=== PATIENT | female | born 1955 | race Hispanic/Latino ===

== ENCOUNTER 2022-04-19 15:54 | Inpatient (IN) | payer MEDICAID, SELFPAY ==
[2022-04-19 16:56] LABS: Hemoglobin 12.4 g/dL (12.0-16.0); Mean Corpuscular HGB CONC 32.6 g/dL (32.0-36.0); Mean Corpuscular Hemoglobin 31.2 pg (27.0-31.0); Mean Corpuscular Volume 95.5 fl (78.0-98.0); Mean Platelet Volume 8.9 fL (7.4-10.4); Platelet Count 107 10x3/uL (130-400); RBC Distribution Width 13.7 % (11.5-14.5); Red Blood Cell (RBC) Count 3.97 mill/uL (4.20-5.40); White Blood Cell (WBC) Count 8.1 10x3/uL (4.8-10.8)
[2022-04-19] MEDS ORDERED: Cefepime 2 GM VIAL ONE (17:13)
[2022-04-19] MEDS ORDERED: Vancomycin 1.5 GRAM/300 ML BAG 1.5 GM in Premix Bag 1 BAG IVPB SCH (17:15)
[2022-04-19 17:19] LABS: Band 47 % (5-11); Lymphocytes 1 % (21-51); MDiff Complete? YES; Metamyelocyte 3 % (0-0); Neutrophil 49 % (42-75); Platelet Morphology Comment Appears Decreased; RBC Morphology Normal; Reflex for Review?? YES; Vacuoles SLIGHT
[2022-04-19] MEDS ORDERED: Fentanyl 100 MCG/2 ML VIAL ONE (17:25)
[2022-04-19] MEDS ORDERED: Ondansetron PF 4 MG/2 ML Vial ONE ×2 (17:25→20:50)
[2022-04-19 17:33] LABS: CKMB 7.1 ng/mL (0-6.6)
[2022-04-19 17:45] LABS: Bilirubin Negative (Negative); Blood, Urine Negative (Negative); Glucose, Urine (Dipstick) Negative (Negative); Ketone, Urine 15 mg/dL (Negative); Leukocyte Negative (Negative); Nitrite Negative (Negative); Protein, Urine (Dipstick) Trace mg/dL (Neg-Trace); Urobilinogen 0.2 mg/dL (Less than 2)
[2022-04-19 17:46] LABS: PTT 27.3 sec (22.9-36.1); Prothrombin Time 13.4 sec (12.0-14.7)
[2022-04-19] MEDS ORDERED: Aspirin Chewable 81 MG TAB ONE (17:46)
[2022-04-19 17:49] LABS: Clarity Cloudy (Clear)
[2022-04-19 17:50] LABS: Bacteria/HPF 1+ HPF (None Seen); RBC/HPF None Seen HPF (0-3); WBC/HPF None Seen HPF (0-3)
[2022-04-19 18:01] LABS: Anion Gap 16 mmol/L (10-20); BUN (Urea Nitrogen) 38 mg/dL (9.8-20.1); Calc. Creatinine Clearance 0 mL/min (70-130); Carbon Dioxide 19 mmol/L (23-31); Chloride 107 mmol/L (98-107); Potassium 5.1 mmol/L (3.5-5.1); Sodium 137 mmol/L (136-145)
[2022-04-19 18:02] LABS: ALT (SGPT) 23 U/L (8-55); AST (SGOT) 25 U/L (5-34); Albumin 2.8 g/dL (3.4-4.8); Alkaline Phosphatase 88 U/L (40-110); Bilirubin, Total 0.8 mg/dL (0.2-1.2); Calcium 8.2 mg/dL (7.8-10.44); Estimated GFR 27; Glucose 63 mg/dL (80-115); Lipase 53 U/L (8-78); Protein, Total 5.8 g/dL (5.8-8.1)
[2022-04-19 18:29] LABS: SARS-CoV-2 NAA Rapid Test Not Detected (NotDetected)
[2022-04-19] MEDS ORDERED: Acetaminophen 500 MG TAB ONE (19:01)
[2022-04-19] MEDS ORDERED: Norepinephrine 4 MG/4 ML VIAL ONE (19:44)
[2022-04-19] MEDS ORDERED: HYDROcodone/Acetaminophen 5/325 mg Tablet PO PRN (19:51)
[2022-04-19] MEDS ORDERED: Ondansetron PF 4 MG/2 ML Vial IVP PRN (19:51)
[2022-04-19] MEDS ORDERED: HYDROmorphone 2 MG TAB PO PRN (19:58)
[2022-04-19] MEDS ORDERED: Dextrose 50% Abboject 50 ML SYRINGE SLOW IVP PRN (20:08)
[2022-04-19] MEDS ORDERED: Dextrose 5% in Water 1,000 ML IV PRN (20:08)
[2022-04-19] MEDS ORDERED: Lactated Ringer's 1,000 ML IV SCH (20:30)
[2022-04-19 21:33] LABS: Actual Bicarbonate (HCO3v) 18 mEq/L (22-28); Analyzer IN Cardio ER; Base Excess -7.7 mEq/L (-2.0 to +3.0); Calcium, Ionized (venous) 0.98 mmol/L (1.16-1.32); Chloride (VBG) 109 mmol/L (98-106); Hemoglobin (Hb) 11.8 g/dL (11.7-16.1); Potassium (VBG) 4.74 mmol/L (3.70-5.30); Sodium 133.1 mmol/L (133-146); pH (venous) 7.31 (7.32-7.43)
[2022-04-19] MEDS ORDERED: NOREPINEPHRINE 8 MG/250 ML-D5W 250 ML IVPB SCH (21:45)
[2022-04-19] MEDS ORDERED: Norepinephrine 8 MG in Dextrose 5% in Water 242 ML IVPB SCH ×2 (22:00)
[2022-04-19] MEDS ORDERED: Meropenem 1 GM in Sodium Chloride 0.9% 100 ML IVPB SCH (22:00)
[2022-04-19 22:03] LABS: Lactic Acid 3.1 mmol/L (0.5-2.2)
[2022-04-19 22:15] LABS: Troponin I 3.409 ng/mL (< 0.028)
[2022-04-19] MEDS: Lactated Ringer's 1,000 ML IV SCH ×2 (22:30→23:30)
[2022-04-19] MEDS ORDERED: EPINEPHrine 4 MG in Dextrose 5% in Water 250 ML IV SCH (22:45)
[2022-04-19] MEDS ORDERED: Hydrocortisone Sod Succ/PF 500 mg/4 ml Vial SLOW IVP SCH (23:59)
[2022-04-20 00:33] LABS: Troponin I 4.226 ng/mL (< 0.028)
[2022-04-20] MEDS: Atorvastatin Calcium 40 MG TAB PO SCH ×2 (01:12→19:58)
[2022-04-20] MEDS: Clindamycin/D5W 900 MG in Premix Bag 1 BAG IVPB SCH ×4 (01:13→21:57)
[2022-04-20] MEDS ORDERED: Hydrocortisone Sod Succ/PF 100 mg/2 ml Vial IVP SCH (01:15)
[2022-04-20] MEDS: Acetaminophen 325 MG TAB PO PRN ×2 (01:45→10:48)
[2022-04-20 05:29] LABS: ALT (SGPT) 23 U/L (8-55); AST (SGOT) 29 U/L (5-34); Albumin 2.2 g/dL (3.4-4.8); Alkaline Phosphatase 74 U/L (40-110); Anion Gap 13 mmol/L (10-20); BUN (Urea Nitrogen) 42 mg/dL (9.8-20.1); Bilirubin, Direct 0.4 mg/dL (0.1-0.3); Bilirubin, Total 0.9 mg/dL (0.2-1.2); CRP (Inflammatory) 18.79 mg/dL (= or < 0.5); Calc. Creatinine Clearance 41 mL/min (70-130); Calcium 7.4 mg/dL (7.8-10.44); Carbon Dioxide 19 mmol/L (23-31); Cardiac Risk 2.4 (Less than 4.5); Chloride 108 mmol/L (98-107); Cholesterol 85 mg/dl (< 200 Desired); Estimated GFR 24; Glucose 116 mg/dL (80-115); HDL Cholesterol 35 mg/dL (>60 Neg Risk); LDL Cholesterol, Calculated 28 mg/dL; Protein, Total 4.6 g/dL (5.8-8.1); Sodium 135 mmol/L (136-145); Triglycerides 109 mg/dL (Less than 150)
[2022-04-20 05:46] LABS: Band 37 % (5-11); Hemoglobin 10.3 g/dL (12.0-16.0); Hypochromia SLIGHT = 6-15 cells (100X) (0-5/hpf); Lymphocytes 4 % (21-51); MDiff Complete? YES; Mean Platelet Volume 8.9 fL (7.4-10.4); Metamyelocyte 1 % (0-0); Monocytes 9 % (0-10); Neutrophil 49 % (42-75); Platelet Count 209 10x3/uL (130-400); Platelet Morphology Comment Appears Adequate; RBC Distribution Width 13.7 % (11.5-14.5); Red Blood Cell (RBC) Count 3.33 mill/uL (4.20-5.40); White Blood Cell (WBC) Count 19.4 10x3/uL (4.8-10.8)
[2022-04-20] MEDS ORDERED: Magnesium 2 GM/50 ML(in water) 2 GM in Premix Bag 1 BAG IVPB SCH ×2 (06:00→22:15)
[2022-04-20] MEDS: Hydrocortisone Sod Succ/PF 100 mg/2 ml Vial IVP SCH ×4 (06:12→23:02)
[2022-04-20] MEDS: Meropenem 500 MG in Sodium Chloride 0.9% 100 ML IVPB SCH ×2 (06:18→17:49)
[2022-04-20] MEDS: Lactated Ringer's 500 ML IV SCH ×2 (08:00→08:35)
[2022-04-20 08:21] LABS: Phosphorus 3.2 mg/dL (2.3-4.7)
[2022-04-20] MEDS: Lactated Ringer's 1,000 ML IV SCH ×2 (09:45)
[2022-04-20] MEDS: Pantoprazole 40 MG VIAL IVP SCH (09:53)
[2022-04-20] MEDS: Aspirin Chewable 81 MG TAB PO SCH (10:48)
[2022-04-20 11:11] LABS: Campy jejuni + coli by PCR Negative (Negative); STEC Shiga Toxin 1+2 Negative (Negative); Salmonella spp. by PCR Negative (Negative); Shigella spp + EIEC by PCR Negative (Negative)
[2022-04-20 12:22] LABS: Anion Gap 15 mmol/L (10-20); BUN (Urea Nitrogen) 39 mg/dL (9.8-20.1); Calc. Creatinine Clearance 45 mL/min (70-130); Calcium 7.2 mg/dL (7.8-10.44); Carbon Dioxide 17 mmol/L (23-31); Chloride 107 mmol/L (98-107); Estimated GFR 27; Glucose 208 mg/dL (80-115); Potassium 5.7 mmol/L (3.5-5.1); Sodium 133 mmol/L (136-145)
[2022-04-20] MEDS: Albumin 25% 25 GM/100 ML BOT IVPB SCH ×3 (12:32→23:02)
[2022-04-20] MEDS: NOREPINEPHRINE 8 MG/250 ML-D5W 250 ML IVPB SCH ×2 (13:18→22:00)
[2022-04-20] MEDS ORDERED: Morphine 2 MG/ML VIAL SLOW IVP PRN (14:21)
[2022-04-20] MEDS ORDERED: Sodium Chloride 0.9% 1,000 ML IV SCH (14:30)
[2022-04-20 14:44] LABS: Magnesium 1.6 mg/dL (1.6-2.6)
[2022-04-20] MEDS ORDERED: ALPRAZolam 0.25 MG TAB PO PRN (15:40)
[2022-04-20] MEDS ORDERED: VANCOMYCIN 1.25 GM/250 ML BAG 1.25 GM in Premix Bag 1 BAG IVPB SCH ×2 (17:30→20:00)
[2022-04-20] MEDS ORDERED: Vancomycin Dose by Levels Sliding Scale (Wt > 99) FS SCH (18:00)
[2022-04-20] MEDS ORDERED: Lorazepam 2 MG/ML VIAL SLOW IVP PRN (19:16)
[2022-04-20] MEDS ORDERED: Lorazepam 2 MG/ML VIAL SLOW IVP SCH (19:30)
[2022-04-20 19:46] LABS: Actual Bicarbonate (HCO3a) 18.3 mEq/L (22-28); Base Excess (BEa) -8.2 mEq/L (-2.0 to +3.0); CO2 Tension 41.8 mmHg (35.0-45.0); Calcium, Ionized (arterial) 1.04 mmol/L (1.12-1.30); Carboxyhemoglobin (COHb) 0.2 gm% (0.0-3.0); Hemoglobin (Hb) 9.8 g/dL (12.0-16.0); O2 Tension (PaO2), arterial 90.4 mmHg (> 80.0); Potassium - ABG Lab 5.36 mmol/L (3.70-5.30); pH, Arterial 7.26 (7.35-7.45)
[2022-04-20 19:48] LABS: Puncture Site LBA
[2022-04-20] MEDS: Heparin 5,000 UNITS/ML VIAL SC SCH (20:00)
[2022-04-20] MEDS ORDERED: Rocuronium Bromide 10 MG/ML (10ML VIAL) ONE (20:21)
[2022-04-20 20:55] LABS: Hemoglobin 8.8 g/dL (12.0-16.0); Mean Corpuscular HGB CONC 32.2 g/dL (32.0-36.0); Mean Corpuscular Hemoglobin 31.5 pg (27.0-31.0); Mean Corpuscular Volume 97.9 fl (78.0-98.0); Mean Platelet Volume 8.6 fL (7.4-10.4); Platelet Count 129 10x3/uL (130-400); RBC Distribution Width 13.6 % (11.5-14.5); Red Blood Cell (RBC) Count 2.78 mill/uL (4.20-5.40); White Blood Cell (WBC) Count 22.1 10x3/uL (4.8-10.8)
[2022-04-20] MEDS ORDERED: Sodium Bicarb 50 MEQ/50 ML VIAL IVP SCH (21:00)
[2022-04-20] MEDS ORDERED: Sodium Bicarb 50 MEQ/50 ML Abboject 8.4% SYRINGE IVP SCH (21:00)
[2022-04-20 21:10] LABS: Lactic Acid 1.3 mmol/L (0.5-2.2)
[2022-04-20 21:14] LABS: ALT (SGPT) 23 U/L (8-55); AST (SGOT) 27 U/L (5-34); Albumin 3.1 g/dL (3.4-4.8); Alkaline Phosphatase 71 U/L (40-110); Anion Gap 14 mmol/L (10-20); BUN (Urea Nitrogen) 37 mg/dL (9.8-20.1); Bilirubin, Total 0.9 mg/dL (0.2-1.2); Calc. Creatinine Clearance 48 mL/min (70-130); Calcium 7.2 mg/dL (7.8-10.44); Carbon Dioxide 16 mmol/L (23-31); Chloride 107 mmol/L (98-107); Estimated GFR 29; Globulin 2.2 g/dL (2.4-3.5); Glucose 183 mg/dL (80-115); Potassium 5.3 mmol/L (3.5-5.1); Protein, Total 5.3 g/dL (5.8-8.1); Sodium 132 mmol/L (136-145)
[2022-04-20 21:21] LABS: Actual Bicarbonate (HCO3a) 17.2 mEq/L (22-28); CO2 Tension 33.6 mmHg (35.0-45.0); Calcium, Ionized (arterial) 1.01 mmol/L (1.12-1.30); Carboxyhemoglobin (COHb) 0.1 gm% (0.0-3.0); Hemoglobin (Hb) 9.4 g/dL (12.0-16.0); O2 Tension (PaO2), arterial 174.2 mmHg (> 80.0); Potassium - ABG Lab 5.13 mmol/L (3.70-5.30); pH, Arterial 7.33 (7.35-7.45)
[2022-04-20 21:22] LABS: Band 32 % (5-11); Lymphocytes 1 % (21-51); MDiff Complete? YES; Metamyelocyte 4 % (0-0); Monocytes 1 % (0-10); Neutrophil 62 % (42-75); Platelet Clumps SLIGHT; Platelet Morphology Comment Appears Decreased; RBC Morphology Normal; Vacuoles SLIGHT
[2022-04-20 21:28] LABS: Magnesium 1.5 mg/dL (1.6-2.6)
[2022-04-20 21:33] LABS: Puncture Site RBA
[2022-04-20] MEDS ORDERED: DISCONTINUE PREVIOUS NARCOTIC PAIN MEDICATIONS AND BENZODIAZEPINES FS SCH (22:00)
[2022-04-20] MEDS ORDERED: Propofol BOLUS 1,000 MG/100 ML VIAL IV PRN (22:00)
[2022-04-20] MEDS ORDERED: Morphine 4 MG/ML VIAL SLOW IVP PRN (22:00)
[2022-04-20] MEDS ORDERED: Fentanyl BOLUS 250 ML IVPB PRN (22:00)
[2022-04-20] MEDS: Sodium Bicarbonate 150 MEQ in Sterile Water 1,000 ML IV SCH (22:03)
[2022-04-20] MEDS ORDERED: Magnesium Sulfate 2 GM in Sodium Chloride 0.9% 100 ML IVPB SCH (22:15)
[2022-04-20] MEDS: Fentanyl CADD 100 ML IV SCH (22:41)
[2022-04-21 05:05] LABS: Hemoglobin 8.3 g/dL (12.0-16.0); Mean Corpuscular HGB CONC 32.1 g/dL (32.0-36.0); Mean Corpuscular Hemoglobin 30.9 pg (27.0-31.0); Mean Corpuscular Volume 96.5 fl (78.0-98.0); Mean Platelet Volume 9.2 fL (7.4-10.4); Platelet Count 125 10x3/uL (130-400); RBC Distribution Width 13.6 % (11.5-14.5); Red Blood Cell (RBC) Count 2.67 mill/uL (4.20-5.40); White Blood Cell (WBC) Count 19.6 10x3/uL (4.8-10.8)
[2022-04-21 05:18] LABS: Anion Gap 14 mmol/L (10-20); BUN (Urea Nitrogen) 34 mg/dL (9.8-20.1); Calc. Creatinine Clearance 52 mL/min (70-130); Calcium 7.5 mg/dL (7.8-10.44); Carbon Dioxide 22 mmol/L (23-31); Chloride 105 mmol/L (98-107); Estimated GFR 30; Glucose 182 mg/dL (80-115); Magnesium 2.2 mg/dL (1.6-2.6); Potassium 4.1 mmol/L (3.5-5.1); Sodium 137 mmol/L (136-145)
[2022-04-21] MEDS: Meropenem 500 MG in Sodium Chloride 0.9% 100 ML IVPB SCH (05:27)
[2022-04-21] MEDS: Hydrocortisone Sod Succ/PF 100 mg/2 ml Vial IVP SCH ×4 (05:27→23:10)
[2022-04-21] MEDS: Clindamycin/D5W 900 MG in Premix Bag 1 BAG IVPB SCH (05:27)
[2022-04-21] MEDS: Albumin 25% 25 GM/100 ML BOT IVPB SCH (05:27)
[2022-04-21 06:01] LABS: Band 12 % (5-11); Lymphocytes 1 % (21-51); MDiff Complete? YES; Metamyelocyte 4 % (0-0); Monocytes 6 % (0-10); Neutrophil 77 % (42-75); Platelet Morphology Comment Appears Decreased; Polychromasia SLIGHT = 2-3 cells (100X) (0-2/hpf)
[2022-04-21] MEDS: Sodium Bicarbonate 150 MEQ in Sterile Water 1,000 ML IV SCH ×2 (07:22→14:40)
[2022-04-21] MEDS: Pantoprazole 40 MG VIAL IVP SCH (08:26)
[2022-04-21] MEDS: Propofol 1,000 MG/100 ML VIAL IV PRN ×2 (08:26→17:42)
[2022-04-21] MEDS: Heparin 5,000 UNITS/ML VIAL SC SCH ×2 (08:26→20:15)
[2022-04-21] MEDS: Aspirin Chewable 81 MG TAB PO SCH (08:26)
[2022-04-21] MEDS: Meropenem 1 GM in Sodium Chloride 0.9% 100 ML IVPB SCH ×2 (17:42→19:37)
[2022-04-21 18:17] LABS: Vancomycin, Random 19.9 ug/mL (See Comment)
[2022-04-21] MEDS ORDERED: Vancomycin HCl 750 MG in Sodium Chloride 0.9% 250 ML 250 ML IVPB SCH (19:15)
[2022-04-21] MEDS: Atorvastatin Calcium 40 MG TAB PO SCH (20:16)
[2022-04-22] MEDS: Sodium Bicarbonate 150 MEQ in Sterile Water 1,000 ML IV SCH ×2 (02:21→11:07)
[2022-04-22 04:40] LABS: Hemoglobin 7.8 g/dL (12.0-16.0); Mean Corpuscular HGB CONC 33.9 g/dL (32.0-36.0); Mean Corpuscular Volume 94.4 fl (78.0-98.0); Mean Platelet Volume 9.3 fL (7.4-10.4); Platelet Count 91 10x3/uL (130-400); RBC Distribution Width 13.7 % (11.5-14.5); Red Blood Cell (RBC) Count 2.45 mill/uL (4.20-5.40); White Blood Cell (WBC) Count 19.9 10x3/uL (4.8-10.8)
[2022-04-22 04:58] LABS: Anion Gap 16 mmol/L (10-20); BUN (Urea Nitrogen) 33 mg/dL (9.8-20.1); Calc. Creatinine Clearance 57 mL/min (70-130); Calcium 7.6 mg/dL (7.8-10.44); Carbon Dioxide 26 mmol/L (23-31); Chloride 100 mmol/L (98-107); Estimated GFR 35; Glucose 154 mg/dL (80-115); Magnesium 2.3 mg/dL (1.6-2.6); Potassium 2.7 mmol/L (3.5-5.1); Sodium 139 mmol/L (136-145)
[2022-04-22 05:05] LABS: Band 7 % (5-11); MDiff Complete? YES; Neutrophil 93 % (42-75); Platelet Morphology Comment Appears Decreased
[2022-04-22] MEDS: Hydrocortisone Sod Succ/PF 100 mg/2 ml Vial IVP SCH ×2 (05:11→11:08)
[2022-04-22] MEDS: Meropenem 1 GM in Sodium Chloride 0.9% 100 ML IVPB SCH (05:11)
[2022-04-22 07:31] LABS: Actual Bicarbonate (HCO3a) 27.6 mEq/L (22-28); CO2 Tension 28.6 mmHg (35.0-45.0); Calcium, Ionized (arterial) 0.97 mmol/L (1.12-1.30); Carboxyhemoglobin (COHb) 0.6 gm% (0.0-3.0); Hemoglobin (Hb) 8.6 g/dL (12.0-16.0); O2 Tension (PaO2), arterial 70.8 mmHg (> 80.0); Potassium - ABG Lab 2.81 mmol/L (3.70-5.30)
[2022-04-22 07:38] LABS: Puncture Site LRA
[2022-04-22] MEDS ORDERED: Rocuronium Bromide 10 MG/ML (10ML VIAL) ONE (09:14)
[2022-04-22] MEDS ORDERED: Electrolyte Replacement Protocol FS PRN (09:15)
[2022-04-22] MEDS ORDERED: Rocuronium Bromide 10 MG/ML (10ML VIAL) IVP SCH (09:45)
[2022-04-22] MEDS: Aspirin Chewable 81 MG TAB PO SCH (09:47)
[2022-04-22] MEDS: Pantoprazole 40 MG VIAL IVP SCH (09:48)
[2022-04-22] MEDS: Potassium Bicarbonate/Cit Ac 20 MEQ TAB PER TUBE SCH ×3 (09:48→21:22)
[2022-04-22] MEDS: Heparin 5,000 UNITS/ML VIAL SC SCH (09:49)
[2022-04-22] MEDS ORDERED: Furosemide 20 MG/2 ML VIAL SLOW IVP SCH (10:45)
[2022-04-22] MEDS: Propofol 1,000 MG/100 ML VIAL IV PRN ×2 (11:07→21:01)
[2022-04-22] MEDS: Fentanyl CADD 100 ML IV SCH (11:07)
[2022-04-22] MEDS ORDERED: Sodium Chloride 0.45% 1,000 ML IV SCH (15:30)
[2022-04-22] MEDS: cefTRIAXone\\ROCEPHIN 2 GM in Sodium Chloride 0.9% 100 ML IVPB SCH (16:10)
[2022-04-22] MEDS: Atorvastatin Calcium 40 MG TAB PO SCH (21:00)
[2022-04-22 21:03] LABS: Potassium 2.9 mmol/L (3.5-5.1)
[2022-04-22 21:08] LABS: Vancomycin, Random 18.7 ug/mL (See Comment)
[2022-04-23] MEDS: Potassium Bicarbonate/Cit Ac 20 MEQ TAB PER TUBE SCH (01:33)
[2022-04-23] MEDS: Lorazepam 2 MG/ML VIAL SLOW IVP PRN ×2 (02:34→03:13)
[2022-04-23 03:23] LABS: Base Excess (BEa) 8.1 mEq/L (-2.0 to +3.0); Carboxyhemoglobin (COHb) 0.1 gm% (0.0-3.0); Hemoglobin (Hb) 9.7 g/dL (12.0-16.0); O2 Tension (PaO2), arterial 96.5 mmHg (> 80.0); Potassium - ABG Lab 4.11 mmol/L (3.70-5.30); pH, Arterial 7.31 (7.35-7.45)
[2022-04-23 03:27] LABS: Puncture Site RRA
[2022-04-23 03:28] LABS: ALV-art Gradient 98.075 mmHg (0-20)
[2022-04-23] MEDS ORDERED: Vecuronium 10 MG VIAL IV PRN (03:42)
[2022-04-23 05:30] LABS: Hemoglobin 8.1 g/dL (12.0-16.0); Mean Corpuscular HGB CONC 32.5 g/dL (32.0-36.0); Mean Corpuscular Volume 95.4 fl (78.0-98.0); Mean Platelet Volume 9.8 fL (7.4-10.4); Platelet Count 88 10x3/uL (130-400); RBC Distribution Width 13.5 % (11.5-14.5); White Blood Cell (WBC) Count 11.7 10x3/uL (4.8-10.8)
[2022-04-23 05:56] LABS: Anion Gap 13 mmol/L (10-20); BUN (Urea Nitrogen) 36 mg/dL (9.8-20.1); Calc. Creatinine Clearance 63 mL/min (70-130); Calcium 8.2 mg/dL (7.8-10.44); Carbon Dioxide 34 mmol/L (23-31); Chloride 97 mmol/L (98-107); Estimated GFR 36; Glucose 113 mg/dL (80-115); Magnesium 2.1 mg/dL (1.6-2.6); Potassium 3.8 mmol/L (3.5-5.1); Sodium 140 mmol/L (136-145)
[2022-04-23 06:20] LABS: Band 2 % (5-11); Eosinophils 1 % (0-10); Lymphocytes 3 % (21-51); MDiff Complete? YES; Neutrophil 94 % (42-75); Platelet Clumps SLIGHT; Platelet Morphology Comment Appears Decreased; Polychromasia SLIGHT = 2-3 cells (100X) (0-2/hpf)
[2022-04-23] MEDS: Propofol 1,000 MG/100 ML VIAL IV PRN ×3 (06:38→20:06)
[2022-04-23] MEDS: Pantoprazole 40 MG VIAL IVP SCH (09:03)
[2022-04-23] MEDS: methylPREDNISolone Sod Succ 40 MG VIAL IVP SCH (09:03)
[2022-04-23] MEDS: Aspirin Chewable 81 MG TAB PO SCH (09:04)
[2022-04-23] MEDS: Fentanyl CADD 100 ML IV SCH (10:14)
[2022-04-23] MEDS ORDERED: Dextrose 5 %-0.45 % NaCl 1,000 ML IV SCH (11:15)
[2022-04-23] MEDS: cefTRIAXone\\ROCEPHIN 2 GM in Sodium Chloride 0.9% 100 ML IVPB SCH (16:10)
[2022-04-23] MEDS: HumaLOG 300 UNITS/3 ML VIAL SC PRN ×2 (16:56→21:19)
[2022-04-23] MEDS: Atorvastatin Calcium 40 MG TAB PO SCH (20:07)
[2022-04-24 04:27] LABS: Hemoglobin 8.7 g/dL (12.0-16.0); Mean Corpuscular HGB CONC 33.6 g/dL (32.0-36.0); Mean Corpuscular Hemoglobin 32.1 pg (27.0-31.0); Mean Corpuscular Volume 95.7 fl (78.0-98.0); Mean Platelet Volume 9.9 fL (7.4-10.4); Platelet Count 93 10x3/uL (130-400); RBC Distribution Width 13.3 % (11.5-14.5); Red Blood Cell (RBC) Count 2.71 mill/uL (4.20-5.40); White Blood Cell (WBC) Count 7.7 10x3/uL (4.8-10.8)
[2022-04-24 04:54] LABS: Anion Gap 15 mmol/L (10-20); BUN (Urea Nitrogen) 35 mg/dL (9.8-20.1); Calc. Creatinine Clearance 67 mL/min (70-130); Calcium 8.6 mg/dL (7.8-10.44); Carbon Dioxide 29 mmol/L (23-31); Chloride 99 mmol/L (98-107); Estimated GFR 39; Glucose 182 mg/dL (80-115); Potassium 3.5 mmol/L (3.5-5.1); Sodium 139 mmol/L (136-145)
[2022-04-24 05:14] LABS: Band 6 % (5-11); Lymphocytes 10 % (21-51); MDiff Complete? YES; Monocytes 5 % (0-10); Neutrophil 79 % (42-75); Platelet Morphology Comment Appears Decreased
[2022-04-24] MEDS: Propofol 1,000 MG/100 ML VIAL IV PRN ×2 (05:15→19:24)
[2022-04-24 07:36] LABS: Actual Bicarbonate (HCO3a) 30.6 mEq/L (22-28); Analyzer IN Cardio OR; Base Excess (BEa) 5.3 mEq/L (-2.0 to +3.0); CO2 Tension 48.2 mmHg (35.0-45.0); Calcium, Ionized (arterial) 1.14 mmol/L (1.12-1.30); Carboxyhemoglobin (COHb) 1.1 gm% (0.0-3.0); Hemoglobin (Hb) 12.2 g/dL (12.0-16.0); O2 Tension (PaO2), arterial 162.2 mmHg (> 80.0); pH, Arterial 7.42 (7.35-7.45)
[2022-04-24] MEDS ORDERED: Potassium Chloride 20 MEQ TAB PO SCH (08:00)
[2022-04-24] MEDS ORDERED: Magnesium 2 GM/50 ML(in water) 2 GM in Premix Bag 1 BAG IVPB SCH (08:00)
[2022-04-24 08:11] LABS: Puncture Site LRA
[2022-04-24] MEDS ORDERED: Potassium Bicarbonate/Cit Ac 20 MEQ TAB PO SCH (08:15)
[2022-04-24] MEDS: methylPREDNISolone Sod Succ 40 MG VIAL IVP SCH (08:44)
[2022-04-24] MEDS: Pantoprazole 40 MG VIAL IVP SCH (08:45)
[2022-04-24] MEDS: Aspirin Chewable 81 MG TAB PO SCH (09:00)
[2022-04-24] MEDS ORDERED: Carvedilol 6.25 MG TAB PER TUBE SCH (09:45)
[2022-04-24] MEDS ORDERED: Furosemide 40 MG/4 ML VIAL SLOW IVP SCH (09:45)
[2022-04-24 14:21] LABS: Potassium 4.4 mmol/L (3.5-5.1)
[2022-04-24 15:38] LABS: CO2 Tension 72.5 mmHg (35.0-45.0)
[2022-04-24] MEDS: cefTRIAXone\\ROCEPHIN 2 GM in Sodium Chloride 0.9% 100 ML IVPB SCH (16:17)
[2022-04-24] MEDS: HumaLOG 300 UNITS/3 ML VIAL SC PRN (16:29)
[2022-04-24] MEDS: Carvedilol 6.25 MG TAB PER TUBE SCH (16:36)
[2022-04-24] MEDS: Atorvastatin Calcium 40 MG TAB PO SCH (20:38)
[2022-04-24] MEDS: Clindamycin/D5W 600 MG in Premix Bag 1 BAG IVPB SCH (21:35)
[2022-04-24] MEDS: Penicillin G Potassium 4 MILL.UNITS in Sodium Chloride 0.9% 50 ML IVPB SCH (21:36)
[2022-04-24] MEDS ORDERED: Penicillin G Potassium 4,000,000 UNITS in Syringe 0 ML IVPB SCH (22:00)
[2022-04-25] MEDS: Propofol 1,000 MG/100 ML VIAL IV PRN ×3 (00:28→19:42)
[2022-04-25 05:15] LABS: #Lymphocytes 0.8 thou/uL (1.20-3.40); #Monocytes 0.5 thou/uL (0.11-0.59); %Basophils 0.3 % (0.0-1.0); %Eosinophils 0.5 % (0.0-10.0); %Monocytes 8.2 % (0.0-10.0); %Neutrophils 77.9 % (42.0-75.0); Mean Corpuscular HGB CONC 33.2 g/dL (32.0-36.0); Mean Corpuscular Hemoglobin 31.6 pg (27.0-31.0); Platelet Count 120 10x3/uL (130-400); RBC Distribution Width 13.3 % (11.5-14.5); Red Blood Cell (RBC) Count 2.22 mill/uL (4.20-5.40); White Blood Cell (WBC) Count 6.4 10x3/uL (4.8-10.8)
[2022-04-25] MEDS: Penicillin G Potassium 4 MILL.UNITS in Sodium Chloride 0.9% 50 ML IVPB SCH ×3 (05:16→21:45)
[2022-04-25] MEDS: Clindamycin/D5W 600 MG in Premix Bag 1 BAG IVPB SCH ×3 (05:16→21:45)
[2022-04-25 05:32] LABS: Anion Gap 12 mmol/L (10-20); BUN (Urea Nitrogen) 37 mg/dL (9.8-20.1); Calc. Creatinine Clearance 69 mL/min (70-130); Calcium 7.9 mg/dL (7.8-10.44); Carbon Dioxide 28 mmol/L (23-31); Chloride 104 mmol/L (98-107); Estimated GFR 41; Glucose 124 mg/dL (80-115); Magnesium 2.3 mg/dL (1.6-2.6); Potassium 3.6 mmol/L (3.5-5.1); Sodium 140 mmol/L (136-145)
[2022-04-25 08:22] LABS: Actual Bicarbonate (HCO3a) 31.2 mEq/L (22-28); Analyzer IN Cardio ER; Base Excess (BEa) 6.2 mEq/L (-2.0 to +3.0); CO2 Tension 47.3 mmHg (35.0-45.0); Calcium, Ionized (arterial) 1.17 mmol/L (1.12-1.30); Carboxyhemoglobin (COHb) 0.3 gm% (0.0-3.0); Hemoglobin (Hb) 10.5 g/dL (12.0-16.0); O2 Tension (PaO2), arterial 156.6 mmHg (> 80.0); Potassium - ABG Lab 3.86 mmol/L (3.70-5.30); pH, Arterial 7.44 (7.35-7.45)
[2022-04-25 08:24] LABS: Puncture Site LRA
[2022-04-25 08:25] LABS: ALV-art Gradient 69.475 mmHg (0-20)
[2022-04-25] MEDS ORDERED: Furosemide 40 MG/4 ML VIAL SLOW IVP SCH ×2 (08:45→16:00)
[2022-04-25] MEDS ORDERED: Potassium Bicarbonate/Cit Ac 20 MEQ TAB PER TUBE SCH (09:15)
[2022-04-25] MEDS: Aspirin Chewable 81 MG TAB PO SCH (09:36)
[2022-04-25] MEDS: Lansoprazole 15 MG/5 ML (BATCHED)UDCUP PER TUBE SCH (09:36)
[2022-04-25] MEDS: methylPREDNISolone Sod Succ 40 MG VIAL IVP SCH (09:36)
[2022-04-25] MEDS: Carvedilol 6.25 MG TAB PER TUBE SCH ×2 (09:37→16:39)
[2022-04-25 11:41] LABS: Hemoglobin 8.5 g/dL (12.0-16.0); Mean Corpuscular HGB CONC 32.2 g/dL (32.0-36.0); Mean Corpuscular Hemoglobin 30.7 pg (27.0-31.0); Mean Corpuscular Volume 95.3 fl (78.0-98.0); Mean Platelet Volume 9.3 fL (7.4-10.4); Platelet Count 174 10x3/uL (130-400); RBC Distribution Width 13.3 % (11.5-14.5); Red Blood Cell (RBC) Count 2.77 mill/uL (4.20-5.40); White Blood Cell (WBC) Count 7.8 10x3/uL (4.8-10.8)
[2022-04-25 12:03] LABS: Iron 19 ug/dL (50-170); Iron Binding Capacity, Total 108 mcg/dL (265-497); Transferrin, Serum 86 mg/dL (173-360)
[2022-04-25] MEDS: Lorazepam 2 MG/ML VIAL SLOW IVP PRN (15:07)
[2022-04-25] MEDS: HumaLOG 300 UNITS/3 ML VIAL SC PRN (16:59)
[2022-04-25] MEDS ORDERED: Vancomycin 1 GM in Premix Bag 1 BAG IVPB SCH (17:30)
[2022-04-25] MEDS: Heparin 5,000 UNITS/ML VIAL SC SCH (19:41)
[2022-04-25] MEDS: Atorvastatin Calcium 40 MG TAB PO SCH (19:41)
[2022-04-26] MEDS: Clindamycin/D5W 600 MG in Premix Bag 1 BAG IVPB SCH ×3 (05:21→21:12)
[2022-04-26] MEDS: Penicillin G Potassium 4 MILL.UNITS in Sodium Chloride 0.9% 50 ML IVPB SCH ×3 (05:21→22:15)
[2022-04-26 05:24] LABS: Hemoglobin 8.2 g/dL (12.0-16.0); Mean Corpuscular HGB CONC 33.1 g/dL (32.0-36.0); Mean Corpuscular Hemoglobin 31.4 pg (27.0-31.0); Mean Corpuscular Volume 94.7 fl (78.0-98.0); Platelet Count 196 10x3/uL (130-400); RBC Distribution Width 13.5 % (11.5-14.5); Red Blood Cell (RBC) Count 2.61 mill/uL (4.20-5.40); White Blood Cell (WBC) Count 8.8 10x3/uL (4.8-10.8)
[2022-04-26] MEDS: Propofol 1,000 MG/100 ML VIAL IV PRN ×2 (05:43→17:07)
[2022-04-26 05:49] LABS: ALT (SGPT) 32 U/L (8-55); AST (SGOT) 28 U/L (5-34); Albumin 2.3 g/dL (3.4-4.8); Alkaline Phosphatase 181 U/L (40-110); Anion Gap 14 mmol/L (10-20); BUN (Urea Nitrogen) 49 mg/dL (9.8-20.1); Bilirubin, Total 0.6 mg/dL (0.2-1.2); Calc. Creatinine Clearance 60 mL/min (70-130); Calcium 8.8 mg/dL (7.8-10.44); Carbon Dioxide 31 mmol/L (23-31); Chloride 99 mmol/L (98-107); Estimated GFR 34; Globulin 3.2 g/dL (2.4-3.5); Glucose 118 mg/dL (80-115); Magnesium 2.1 mg/dL (1.6-2.6); Potassium 4.3 mmol/L (3.5-5.1); Protein, Total 5.5 g/dL (5.8-8.1); Sodium 140 mmol/L (136-145)
[2022-04-26 05:50] LABS: Band 4 % (5-11); Eosinophils 1 % (0-10); Lymphocytes 40 % (21-51); MDiff Complete? YES; Monocytes 3 % (0-10); Myelocyte 1 % (0-0); Neutrophil 51 % (42-75)
[2022-04-26 08:07] LABS: Actual Bicarbonate (HCO3a) 30.2 mEq/L (22-28); Base Excess (BEa) 5.9 mEq/L (-2.0 to +3.0); CO2 Tension 42.3 mmHg (35.0-45.0); Calcium, Ionized (arterial) 1.16 mmol/L (1.12-1.30); O2 Tension (PaO2), arterial 150.4 mmHg (> 80.0); Potassium - ABG Lab 4.25 mmol/L (3.70-5.30); pH, Arterial 7.47 (7.35-7.45)
[2022-04-26 08:23] LABS: ALV-art Gradient 81.925 mmHg (0-20); Puncture Site LRA
[2022-04-26] MEDS: Carvedilol 6.25 MG TAB PER TUBE SCH ×2 (09:02→17:07)
[2022-04-26] MEDS: methylPREDNISolone Sod Succ 40 MG VIAL IVP SCH (09:02)
[2022-04-26] MEDS: Aspirin Chewable 81 MG TAB PO SCH (09:02)
[2022-04-26] MEDS: Lansoprazole 15 MG/5 ML (BATCHED)UDCUP PER TUBE SCH (09:05)
[2022-04-26] MEDS: Heparin 5,000 UNITS/ML VIAL SC SCH ×2 (09:06→21:12)
[2022-04-26 12:11] LABS: Phosphorus 3.1 mg/dL (2.3-4.7)
[2022-04-26] MEDS: HumaLOG 300 UNITS/3 ML VIAL SC PRN (16:27)
[2022-04-26] MEDS: Atorvastatin Calcium 40 MG TAB PO SCH (21:12)
[2022-04-27] MEDS: Propofol 1,000 MG/100 ML VIAL IV PRN ×2 (01:19→16:06)
[2022-04-27] MEDS: Lorazepam 2 MG/ML VIAL SLOW IVP PRN (01:19)
[2022-04-27 04:54] LABS: Hemoglobin 8.7 g/dL (12.0-16.0); Mean Corpuscular HGB CONC 32.4 g/dL (32.0-36.0); Mean Corpuscular Volume 95.5 fl (78.0-98.0); Mean Platelet Volume 8.3 fL (7.4-10.4); Platelet Count 254 10x3/uL (130-400); RBC Distribution Width 13.5 % (11.5-14.5); Red Blood Cell (RBC) Count 2.81 mill/uL (4.20-5.40); White Blood Cell (WBC) Count 11.3 10x3/uL (4.8-10.8)
[2022-04-27 05:27] LABS: Anion Gap 15 mmol/L (10-20); BUN (Urea Nitrogen) 57 mg/dL (9.8-20.1); Calc. Creatinine Clearance 63 mL/min (70-130); Calcium 8.8 mg/dL (7.8-10.44); Carbon Dioxide 31 mmol/L (23-31); Chloride 102 mmol/L (98-107); Estimated GFR 37; Glucose 152 mg/dL (80-115); Phosphorus 3.8 mg/dL (2.3-4.7); Potassium 4.7 mmol/L (3.5-5.1); Sodium 143 mmol/L (136-145)
[2022-04-27 05:46] LABS: Band 3 % (5-11); Eosinophils 3 % (0-10); Lymphocytes 22 % (21-51); MDiff Complete? YES; Metamyelocyte 4 % (0-0); Monocytes 7 % (0-10); Myelocyte 1 % (0-0); Neutrophil 60 % (42-75); Platelet Morphology Comment Appears Adequate; Polychromasia SLIGHT = 2-3 cells (100X) (0-2/hpf); Stomatocytes SLIGHT = 2-5 cells (100X) (0-1/hpf)
[2022-04-27] MEDS: Clindamycin/D5W 600 MG in Premix Bag 1 BAG IVPB SCH ×3 (05:53→21:38)
[2022-04-27] MEDS: Penicillin G Potassium 4 MILL.UNITS in Sodium Chloride 0.9% 50 ML IVPB SCH ×3 (05:57→21:37)
[2022-04-27 07:20] LABS: Actual Bicarbonate (HCO3a) 31.7 mEq/L (22-28); Base Excess (BEa) 6.4 mEq/L (-2.0 to +3.0); CO2 Tension 47.9 mmHg (35.0-45.0); Calcium, Ionized (arterial) 1.14 mmol/L (1.12-1.30); O2 Tension (PaO2), arterial 105.2 mmHg (> 80.0); Potassium - ABG Lab 4.58 mmol/L (3.70-5.30); pH, Arterial 7.44 (7.35-7.45)
[2022-04-27 07:26] LABS: ALV-art Gradient 120.125 mmHg (0-20); Puncture Site RBA
[2022-04-27] MEDS: Heparin 5,000 UNITS/ML VIAL SC SCH ×2 (08:19→21:38)
[2022-04-27] MEDS: Carvedilol 6.25 MG TAB PER TUBE SCH ×2 (08:19→16:06)
[2022-04-27] MEDS: methylPREDNISolone Sod Succ 40 MG VIAL IVP SCH (08:19)
[2022-04-27] MEDS: Aspirin Chewable 81 MG TAB PO SCH (08:19)
[2022-04-27] MEDS: Lansoprazole 15 MG/5 ML (BATCHED)UDCUP PER TUBE SCH (08:19)
[2022-04-27] MEDS ORDERED: Lidocaine 4% PF 5 ML AMP NEB PRN (10:39)
[2022-04-27] MEDS ORDERED: Albuterol 2.5 MG/0.5 ML NEB NEB PRN (11:11)
[2022-04-27 16:14] LABS: Campy jejuni + coli by PCR Negative (Negative); STEC Shiga Toxin 1+2 Negative (Negative); Salmonella spp. by PCR Negative (Negative); Shigella spp + EIEC by PCR Negative (Negative)
[2022-04-27] MEDS: HumaLOG 300 UNITS/3 ML VIAL SC PRN (16:19)
[2022-04-27] MEDS: Atorvastatin Calcium 40 MG TAB PO SCH (21:37)
[2022-04-28] MEDS: Propofol 1,000 MG/100 ML VIAL IV PRN ×3 (00:30→22:02)
[2022-04-28 04:50] LABS: Phosphorus 4.2 mg/dL (2.3-4.7)
[2022-04-28] MEDS: Clindamycin/D5W 600 MG in Premix Bag 1 BAG IVPB SCH ×3 (05:23→21:29)
[2022-04-28] MEDS: Penicillin G Potassium 4 MILL.UNITS in Sodium Chloride 0.9% 50 ML IVPB SCH ×3 (05:24→21:28)
[2022-04-28 07:12] LABS: Base Excess (BEa) 4.8 mEq/L (-2.0 to +3.0); CO2 Tension 47.7 mmHg (35.0-45.0); Carboxyhemoglobin (COHb) 0.5 gm% (0.0-3.0); Hemoglobin (Hb) 9.7 g/dL (12.0-16.0); O2 Tension (PaO2), arterial 98.3 mmHg (> 80.0); Potassium - ABG Lab 4.75 mmol/L (3.70-5.30); pH, Arterial 7.42 (7.35-7.45)
[2022-04-28 07:30] LABS: ALV-art Gradient 55.975 mmHg (0-20); Puncture Site LRA
[2022-04-28] MEDS: Carvedilol 6.25 MG TAB PER TUBE SCH ×2 (08:17→17:07)
[2022-04-28] MEDS: Aspirin Chewable 81 MG TAB PO SCH (08:17)
[2022-04-28] MEDS: Heparin 5,000 UNITS/ML VIAL SC SCH ×2 (08:17→22:00)
[2022-04-28] MEDS: Lansoprazole 15 MG/5 ML (BATCHED)UDCUP PER TUBE SCH (08:18)
[2022-04-28 08:52] LABS: ALT (SGPT) 22 U/L (8-55); AST (SGOT) 24 U/L (5-34); Albumin 2.5 g/dL (3.4-4.8); Alkaline Phosphatase 155 U/L (40-110); Anion Gap 12 mmol/L (10-20); BUN (Urea Nitrogen) 51 mg/dL (9.8-20.1); Bilirubin, Total 0.5 mg/dL (0.2-1.2); Calc. Creatinine Clearance 65 mL/min (70-130); Calcium 8.5 mg/dL (7.8-10.44); Carbon Dioxide 27 mmol/L (23-31); Chloride 104 mmol/L (98-107); Estimated GFR 42; Globulin 3.9 g/dL (2.4-3.5); Glucose 167 mg/dL (80-115); Potassium 4.8 mmol/L (3.5-5.1); Protein, Total 6.4 g/dL (5.8-8.1); Sodium 138 mmol/L (136-145)
[2022-04-28 08:55] LABS: Band 4 % (5-11); Eosinophils 2 % (0-10); Hemoglobin 8.3 g/dL (12.0-16.0); Hypochromia SLIGHT = 6-15 cells (100X) (0-5/hpf); Lymphocytes 21 % (21-51); MDiff Complete? YES; Mean Corpuscular HGB CONC 31.9 g/dL (32.0-36.0); Mean Corpuscular Hemoglobin 30.6 pg (27.0-31.0); Mean Platelet Volume 8.4 fL (7.4-10.4); Monocytes 6 % (0-10); Myelocyte 6 % (0-0); Neutrophil 60 % (42-75); Platelet Count 295 10x3/uL (130-400); Platelet Morphology Comment Appears Adequate; Polychromasia SLIGHT = 2-3 cells (100X) (0-2/hpf); RBC Distribution Width 13.5 % (11.5-14.5); Reactive Lymphocytes 1 % (0-10); Red Blood Cell (RBC) Count 2.72 mill/uL (4.20-5.40); White Blood Cell (WBC) Count 12.1 10x3/uL (4.8-10.8)
[2022-04-28] MEDS: HumaLOG 300 UNITS/3 ML VIAL SC PRN ×3 (10:11→21:47)
[2022-04-28] MEDS: Labetalol HCl 100 MG/20 ML VIAL SLOW IVP PRN (11:35)
[2022-04-28] MEDS: Acetaminophen 325 MG TAB PO PRN (11:37)
[2022-04-28] MEDS: hydrALAZINE 20 MG/ML VIAL SLOW IVP PRN (13:11)
[2022-04-28] MEDS: Atorvastatin Calcium 40 MG TAB PO SCH (21:28)
[2022-04-29] MEDS: Labetalol HCl 100 MG/20 ML VIAL SLOW IVP PRN ×2 (01:26→05:39)
[2022-04-29 04:36] LABS: Anion Gap 11 mmol/L (10-20); BUN (Urea Nitrogen) 46 mg/dL (9.8-20.1); Calc. Creatinine Clearance 70 mL/min (70-130); Calcium 8.4 mg/dL (7.8-10.44); Carbon Dioxide 28 mmol/L (23-31); Chloride 106 mmol/L (98-107); Estimated GFR 45; Glucose 181 mg/dL (80-115); Phosphorus 4.3 mg/dL (2.3-4.7); Potassium 4.5 mmol/L (3.5-5.1); Sodium 140 mmol/L (136-145)
[2022-04-29 04:51] LABS: Band 3 % (5-11); Eosinophils 1 % (0-10); Hemoglobin 7.9 g/dL (12.0-16.0); Hypochromia SLIGHT = 6-15 cells (100X) (0-5/hpf); Lymphocytes 7 % (21-51); MDiff Complete? YES; Mean Corpuscular HGB CONC 31.5 g/dL (32.0-36.0); Mean Corpuscular Hemoglobin 30.2 pg (27.0-31.0); Mean Corpuscular Volume 95.9 fl (78.0-98.0); Mean Platelet Volume 8.2 fL (7.4-10.4); Monocytes 4 % (0-10); Neutrophil 85 % (42-75); Platelet Count 311 10x3/uL (130-400); Platelet Morphology Comment Appears Adequate; RBC Distribution Width 13.6 % (11.5-14.5); Red Blood Cell (RBC) Count 2.63 mill/uL (4.20-5.40); White Blood Cell (WBC) Count 13.3 10x3/uL (4.8-10.8)
[2022-04-29] MEDS: Penicillin G Potassium 4 MILL.UNITS in Sodium Chloride 0.9% 50 ML IVPB SCH ×3 (05:37→21:56)
[2022-04-29] MEDS: Clindamycin/D5W 600 MG in Premix Bag 1 BAG IVPB SCH ×3 (05:37→20:48)
[2022-04-29] MEDS: HumaLOG 300 UNITS/3 ML VIAL SC PRN ×3 (05:37→16:13)
[2022-04-29 07:54] LABS: Actual Bicarbonate (HCO3a) 27.3 mEq/L (22-28); Base Excess (BEa) 2.8 mEq/L (-2.0 to +3.0); CO2 Tension 41.6 mmHg (35.0-45.0); Calcium, Ionized (arterial) 1.17 mmol/L (1.12-1.30); Carboxyhemoglobin (COHb) 0.6 gm% (0.0-3.0); Hemoglobin (Hb) 8.5 g/dL (12.0-16.0); O2 Tension (PaO2), arterial 109.2 mmHg (> 80.0); Potassium - ABG Lab 4.55 mmol/L (3.70-5.30); pH, Arterial 7.44 (7.35-7.45)
[2022-04-29 07:55] LABS: Puncture Site RBA
[2022-04-29] MEDS: Aspirin Chewable 81 MG TAB PO SCH (08:58)
[2022-04-29] MEDS: Carvedilol 6.25 MG TAB PER TUBE SCH ×2 (08:58→16:10)
[2022-04-29] MEDS: Heparin 5,000 UNITS/ML VIAL SC SCH ×2 (08:59→20:50)
[2022-04-29] MEDS: Propofol 1,000 MG/100 ML VIAL IV PRN ×2 (12:15→23:09)
[2022-04-29] MEDS: Lansoprazole 15 MG/5 ML (BATCHED)UDCUP PER TUBE SCH (12:22)
[2022-04-29] MEDS: Acetaminophen 325 MG TAB PO PRN (19:39)
[2022-04-29] MEDS: Atorvastatin Calcium 40 MG TAB PO SCH (20:50)
[2022-04-30 04:52] LABS: #Eosinphils 0.1 thou/uL (0.0-0.7); #Lymphocytes 1.4 thou/uL (1.20-3.40); #Monocytes 0.7 thou/uL (0.11-0.59); #Neutrophils 7.7 thou/uL (1.40-6.50); %Basophils 0.1 % (0.0-1.0); %Lymphocytes 13.9 % (21.0-51.0); %Monocytes 7.3 % (0.0-10.0); %Neutrophils 77.7 % (42.0-75.0); Hemoglobin 7.2 g/dL (12.0-16.0); Mean Corpuscular HGB CONC 31.5 g/dL (32.0-36.0); Mean Corpuscular Hemoglobin 30.5 pg (27.0-31.0); Mean Corpuscular Volume 96.8 fl (78.0-98.0); Platelet Count 279 10x3/uL (130-400); RBC Distribution Width 13.8 % (11.5-14.5); Red Blood Cell (RBC) Count 2.36 mill/uL (4.20-5.40); White Blood Cell (WBC) Count 9.9 10x3/uL (4.8-10.8)
[2022-04-30 05:11] LABS: Anion Gap 11 mmol/L (10-20); BUN (Urea Nitrogen) 44 mg/dL (9.8-20.1); Calc. Creatinine Clearance 74 mL/min (70-130); Calcium 8.4 mg/dL (7.8-10.44); Carbon Dioxide 25 mmol/L (23-31); Chloride 110 mmol/L (98-107); Estimated GFR 49; Glucose 185 mg/dL (80-115); Phosphorus 4.2 mg/dL (2.3-4.7); Potassium 4.4 mmol/L (3.5-5.1); Sodium 142 mmol/L (136-145)
[2022-04-30] MEDS: Propofol 1,000 MG/100 ML VIAL IV PRN ×2 (06:28→21:18)
[2022-04-30] MEDS: Clindamycin/D5W 600 MG in Premix Bag 1 BAG IVPB SCH ×3 (06:47→21:17)
[2022-04-30] MEDS: Penicillin G Potassium 4 MILL.UNITS in Sodium Chloride 0.9% 50 ML IVPB SCH ×3 (06:47→21:18)
[2022-04-30 07:48] LABS: Actual Bicarbonate (HCO3a) 26.2 mEq/L (22-28); Base Excess (BEa) 2.2 mEq/L (-2.0 to +3.0); CO2 Tension 37.8 mmHg (35.0-45.0); Calcium, Ionized (arterial) 1.17 mmol/L (1.12-1.30); Carboxyhemoglobin (COHb) 0.8 gm% (0.0-3.0); O2 Tension (PaO2), arterial 119.3 mmHg (> 80.0); Potassium - ABG Lab 4.51 mmol/L (3.70-5.30); pH, Arterial 7.46 (7.35-7.45)
[2022-04-30 07:50] LABS: Puncture Site RB
[2022-04-30] MEDS: HumaLOG 300 UNITS/3 ML VIAL SC PRN ×3 (08:34→16:54)
[2022-04-30] MEDS: Carvedilol 6.25 MG TAB PER TUBE SCH ×2 (09:02→16:42)
[2022-04-30] MEDS: Heparin 5,000 UNITS/ML VIAL SC SCH ×2 (09:02→21:17)
[2022-04-30] MEDS: Aspirin Chewable 81 MG TAB PO SCH (09:02)
[2022-04-30] MEDS: Lansoprazole 15 MG/5 ML (BATCHED)UDCUP PER TUBE SCH (09:10)
[2022-04-30] MEDS: Atorvastatin Calcium 40 MG TAB PO SCH (21:18)
[2022-05-01] MEDS: HumaLOG 300 UNITS/3 ML VIAL SC PRN ×3 (03:44→16:35)
[2022-05-01 04:38] LABS: #Eosinphils 0.1 thou/uL (0.0-0.7); #Lymphocytes 1.2 thou/uL (1.20-3.40); #Monocytes 0.6 thou/uL (0.11-0.59); %Basophils 0.2 % (0.0-1.0); %Eosinophils 1.2 % (0.0-10.0); %Lymphocytes 13.7 % (21.0-51.0); %Monocytes 6.1 % (0.0-10.0); %Neutrophils 78.7 % (42.0-75.0); Hemoglobin 6.9 g/dL (12.0-16.0); Mean Corpuscular HGB CONC 32.1 g/dL (32.0-36.0); Mean Corpuscular Hemoglobin 31.2 pg (27.0-31.0); Mean Corpuscular Volume 97.1 fl (78.0-98.0); Mean Platelet Volume 8.4 fL (7.4-10.4); Platelet Count 305 10x3/uL (130-400); RBC Distribution Width 13.6 % (11.5-14.5); Red Blood Cell (RBC) Count 2.22 mill/uL (4.20-5.40); White Blood Cell (WBC) Count 8.9 10x3/uL (4.8-10.8)
[2022-05-01 04:47] LABS: Anion Gap 7 mmol/L (10-20); BUN (Urea Nitrogen) 46 mg/dL (9.8-20.1); Calc. Creatinine Clearance 71 mL/min (70-130); Calcium 8.5 mg/dL (7.8-10.44); Carbon Dioxide 25 mmol/L (23-31); Chloride 114 mmol/L (98-107); Estimated GFR 46; Glucose 184 mg/dL (80-115); Phosphorus 4.1 mg/dL (2.3-4.7); Potassium 4.5 mmol/L (3.5-5.1); Sodium 141 mmol/L (136-145)
[2022-05-01] MEDS: Penicillin G Potassium 4 MILL.UNITS in Sodium Chloride 0.9% 50 ML IVPB SCH ×3 (05:38→21:11)
[2022-05-01] MEDS: Clindamycin/D5W 600 MG in Premix Bag 1 BAG IVPB SCH ×3 (05:38→21:11)
[2022-05-01] MEDS: Propofol 1,000 MG/100 ML VIAL IV PRN (05:39)
[2022-05-01 08:16] LABS: Actual Bicarbonate (HCO3a) 25.3 mEq/L (22-28); Base Excess (BEa) 0.9 mEq/L (-2.0 to +3.0); CO2 Tension 39.4 mmHg (35.0-45.0); Calcium, Ionized (arterial) 1.15 mmol/L (1.12-1.30); Carboxyhemoglobin (COHb) 1.2 gm% (0.0-3.0); Hemoglobin (Hb) 7.7 g/dL (12.0-16.0); O2 Tension (PaO2), arterial 114.9 mmHg (> 80.0); Potassium - ABG Lab 4.51 mmol/L (3.70-5.30); pH, Arterial 7.43 (7.35-7.45)
[2022-05-01 08:18] LABS: Puncture Site LRA
[2022-05-01] MEDS ORDERED: Furosemide 40 MG/4 ML VIAL SLOW IVP SCH (08:45)
[2022-05-01] MEDS: Lansoprazole 15 MG/5 ML (BATCHED)UDCUP PER TUBE SCH (08:53)
[2022-05-01] MEDS: Heparin 5,000 UNITS/ML VIAL SC SCH ×2 (08:54→21:11)
[2022-05-01] MEDS: Aspirin Chewable 81 MG TAB PO SCH (08:54)
[2022-05-01] MEDS: Carvedilol 6.25 MG TAB PER TUBE SCH ×2 (08:54→16:23)
[2022-05-01] MEDS: Labetalol HCl 100 MG/20 ML VIAL SLOW IVP PRN (16:32)
[2022-05-01] MEDS: Atorvastatin Calcium 40 MG TAB PO SCH (21:10)
[2022-05-02 04:27] LABS: #Basophils 0.1 thou/uL (0.0-0.2); #Eosinphils 0.1 thou/uL (0.0-0.7); #Lymphocytes 1.5 thou/uL (1.20-3.40); #Monocytes 0.7 thou/uL (0.11-0.59); #Neutrophils 6.6 thou/uL (1.40-6.50); %Basophils 0.6 % (0.0-1.0); %Lymphocytes 16.5 % (21.0-51.0); %Monocytes 7.7 % (0.0-10.0); %Neutrophils 74.2 % (42.0-75.0); Hemoglobin 7.9 g/dL (12.0-16.0); Mean Corpuscular HGB CONC 32.9 g/dL (32.0-36.0); Mean Corpuscular Hemoglobin 31.3 pg (27.0-31.0); Mean Corpuscular Volume 95.2 fl (78.0-98.0); Mean Platelet Volume 8.5 fL (7.4-10.4); Platelet Count 303 10x3/uL (130-400); RBC Distribution Width 13.8 % (11.5-14.5); Red Blood Cell (RBC) Count 2.54 mill/uL (4.20-5.40); White Blood Cell (WBC) Count 8.9 10x3/uL (4.8-10.8)
[2022-05-02 04:46] LABS: Anion Gap 12 mmol/L (10-20); BUN (Urea Nitrogen) 45 mg/dL (9.8-20.1); Calc. Creatinine Clearance 70 mL/min (70-130); Calcium 8.7 mg/dL (7.8-10.44); Carbon Dioxide 25 mmol/L (23-31); Chloride 109 mmol/L (98-107); Estimated GFR 46; Glucose 188 mg/dL (80-115); Phosphorus 3.8 mg/dL (2.3-4.7); Potassium 4.2 mmol/L (3.5-5.1); Sodium 142 mmol/L (136-145)
[2022-05-02] MEDS: Penicillin G Potassium 4 MILL.UNITS in Sodium Chloride 0.9% 50 ML IVPB SCH ×3 (05:18→21:07)
[2022-05-02] MEDS: Clindamycin/D5W 600 MG in Premix Bag 1 BAG IVPB SCH ×3 (05:18→21:07)
[2022-05-02 06:12] LABS: Methylmalonic Acid 3266 nmol/L (0-378)
[2022-05-02] MEDS: Heparin 5,000 UNITS/ML VIAL SC SCH ×2 (09:30→21:06)
[2022-05-02] MEDS: Aspirin Chewable 81 MG TAB PO SCH (09:55)
[2022-05-02] MEDS: Carvedilol 6.25 MG TAB PER TUBE SCH ×3 (09:56→21:06)
[2022-05-02] MEDS: Lansoprazole 15 MG/5 ML (BATCHED)UDCUP PER TUBE SCH (09:58)
[2022-05-02] MEDS: HumaLOG 300 UNITS/3 ML VIAL SC PRN ×3 (11:15→22:15)
[2022-05-02] MEDS ORDERED: Dexamethasone 4 mg/ml Vial SLOW IVP SCH (11:45)
[2022-05-02] MEDS: Senokot S 8.6-50 MG TAB PO SCH (21:06)
[2022-05-02] MEDS: Atorvastatin Calcium 40 MG TAB PO SCH (21:06)
[2022-05-03 03:59] LABS: #Monocytes 0.6 thou/uL (0.11-0.59); #Neutrophils 6.2 thou/uL (1.40-6.50); %Basophils 0.5 % (0.0-1.0); %Eosinophils 0.4 % (0.0-10.0); %Lymphocytes 12.7 % (21.0-51.0); %Monocytes 7.8 % (0.0-10.0); %Neutrophils 78.6 % (42.0-75.0); Hemoglobin 7.7 g/dL (12.0-16.0); Mean Corpuscular HGB CONC 32.1 g/dL (32.0-36.0); Mean Corpuscular Hemoglobin 30.9 pg (27.0-31.0); Mean Corpuscular Volume 96.3 fl (78.0-98.0); Mean Platelet Volume 8.7 fL (7.4-10.4); Platelet Count 310 10x3/uL (130-400); RBC Distribution Width 13.8 % (11.5-14.5); White Blood Cell (WBC) Count 7.8 10x3/uL (4.8-10.8)
[2022-05-03 04:16] LABS: Anion Gap 11 mmol/L (10-20); BUN (Urea Nitrogen) 50 mg/dL (9.8-20.1); Calc. Creatinine Clearance 72 mL/min (70-130); Calcium 8.6 mg/dL (7.8-10.44); Carbon Dioxide 25 mmol/L (23-31); Chloride 111 mmol/L (98-107); Estimated GFR 47; Glucose 222 mg/dL (80-115); Phosphorus 4.4 mg/dL (2.3-4.7); Potassium 4.2 mmol/L (3.5-5.1); Sodium 143 mmol/L (136-145)
[2022-05-03] MEDS: HumaLOG 300 UNITS/3 ML VIAL SC PRN ×2 (04:27→12:38)
[2022-05-03] MEDS: Penicillin G Potassium 4 MILL.UNITS in Sodium Chloride 0.9% 50 ML IVPB SCH ×3 (05:35→21:09)
[2022-05-03] MEDS: Clindamycin/D5W 600 MG in Premix Bag 1 BAG IVPB SCH ×2 (05:35→13:50)
[2022-05-03 07:58] LABS: Actual Bicarbonate (HCO3a) 23.8 mEq/L (22-28); CO2 Tension 39.7 mmHg (35.0-45.0); Carboxyhemoglobin (COHb) 0.6 gm% (0.0-3.0); Hemoglobin (Hb) 8.3 g/dL (12.0-16.0); Potassium - ABG Lab 4.07 mmol/L (3.70-5.30)
[2022-05-03 07:59] LABS: Puncture Site RRA
[2022-05-03 08:00] LABS: ALV-art Gradient 46.275 mmHg (0-20)
[2022-05-03] MEDS: Heparin 5,000 UNITS/ML VIAL SC SCH ×2 (08:24→21:09)
[2022-05-03] MEDS: Carvedilol 6.25 MG TAB PER TUBE SCH ×3 (08:24→21:10)
[2022-05-03] MEDS: Aspirin Chewable 81 MG TAB PO SCH (08:25)
[2022-05-03] MEDS: Senokot S 8.6-50 MG TAB PO SCH ×2 (08:25→21:12)
[2022-05-03] MEDS ORDERED: Dexamethasone 4 mg/ml Vial SLOW IVP SCH (09:00)
[2022-05-03] MEDS ORDERED: Polyethylene Glycol 3350 17 GM Packet PO SCH (10:00)
[2022-05-03] MEDS ORDERED: Cyanocobalamin (Vitamin B-12) 1,000 MCG TAB PO SCH (10:00)
[2022-05-03] MEDS: Lansoprazole 15 MG/5 ML (BATCHED)UDCUP PER TUBE SCH (12:36)
[2022-05-03] MEDS ORDERED: Clindamycin 150 MG CAP PO SCH (16:15)
[2022-05-03] MEDS: Atorvastatin Calcium 40 MG TAB PO SCH (21:09)
[2022-05-03] MEDS: Clindamycin 150 MG CAP PO SCH (21:21)
[2022-05-04 03:56] LABS: #Basophils 0.1 thou/uL (0.0-0.2); #Eosinphils 0.1 thou/uL (0.0-0.7); #Lymphocytes 1.5 thou/uL (1.20-3.40); #Monocytes 0.7 thou/uL (0.11-0.59); #Neutrophils 6.2 thou/uL (1.40-6.50); %Basophils 1.2 % (0.0-1.0); %Eosinophils 1.1 % (0.0-10.0); %Lymphocytes 17.6 % (21.0-51.0); %Monocytes 7.9 % (0.0-10.0); %Neutrophils 72.2 % (42.0-75.0); Hemoglobin 8.5 g/dL (12.0-16.0); Mean Corpuscular HGB CONC 32.2 g/dL (32.0-36.0); Mean Corpuscular Hemoglobin 31.2 pg (27.0-31.0); Mean Corpuscular Volume 97.1 fl (78.0-98.0); Mean Platelet Volume 8.9 fL (7.4-10.4); Platelet Count 382 10x3/uL (130-400); RBC Distribution Width 13.7 % (11.5-14.5); Red Blood Cell (RBC) Count 2.71 mill/uL (4.20-5.40); White Blood Cell (WBC) Count 8.6 10x3/uL (4.8-10.8)
[2022-05-04 04:18] LABS: ALT (SGPT) 30 U/L (8-55); AST (SGOT) 34 U/L (5-34); Albumin 2.6 g/dL (3.4-4.8); Alkaline Phosphatase 143 U/L (40-110); Anion Gap 10 mmol/L (10-20); BUN (Urea Nitrogen) 55 mg/dL (9.8-20.1); Bilirubin, Total 0.3 mg/dL (0.2-1.2); Calc. Creatinine Clearance 75 mL/min (70-130); Calcium 8.7 mg/dL (7.8-10.44); Carbon Dioxide 26 mmol/L (23-31); Chloride 115 mmol/L (98-107); Estimated GFR 50; Globulin 5.2 g/dL (2.4-3.5); Glucose 174 mg/dL (80-115); Potassium 4.2 mmol/L (3.5-5.1); Protein, Total 7.8 g/dL (5.8-8.1); Sodium 147 mmol/L (136-145)
[2022-05-04] MEDS: Penicillin G Potassium 4 MILL.UNITS in Sodium Chloride 0.9% 50 ML IVPB SCH ×3 (05:39→23:42)
[2022-05-04] MEDS: Clindamycin 150 MG CAP PO SCH ×3 (05:40→23:36)
[2022-05-04] MEDS: Acetaminophen 325 MG TAB PO PRN (07:40)
[2022-05-04] MEDS: traMADol HCl 50 MG TAB PO PRN ×2 (09:55→22:02)
[2022-05-04] MEDS: Aspirin Chewable 81 MG TAB PO SCH (09:56)
[2022-05-04] MEDS: Cyanocobalamin (Vitamin B-12) 1,000 MCG TAB PO SCH (09:56)
[2022-05-04] MEDS: Heparin 5,000 UNITS/ML VIAL SC SCH ×2 (09:57→22:02)
[2022-05-04] MEDS: Lansoprazole 15 MG/5 ML (BATCHED)UDCUP PER TUBE SCH (09:57)
[2022-05-04] MEDS: Senokot S 8.6-50 MG TAB PO SCH ×2 (09:58→20:54)
[2022-05-04] MEDS: Polyethylene Glycol 3350 17 GM Packet PO SCH (09:59)
[2022-05-04] MEDS: HumaLOG 300 UNITS/3 ML VIAL SC PRN ×2 (11:10→17:36)
[2022-05-04] MEDS: Morphine 2 MG/ML VIAL SLOW IVP PRN ×2 (13:35→20:06)
[2022-05-04] MEDS: Carvedilol 25 MG TAB PO SCH (17:35)
[2022-05-04] MEDS: Carvedilol 6.25 MG TAB PER TUBE SCH (20:50)
[2022-05-04] MEDS: Atorvastatin Calcium 40 MG TAB PO SCH (22:02)
[2022-05-05] MEDS: Morphine 2 MG/ML VIAL SLOW IVP PRN ×4 (00:46→20:05)
[2022-05-05 02:26] LABS: Bacteria/HPF None Seen HPF (None Seen); Bilirubin Negative (Negative); Blood, Urine 3+ (Negative); Clarity Turbid (Clear); Glucose, Urine (Dipstick) Normal (Negative); Ketone, Urine Negative (Negative); Leukocyte 250 Leu/uL (Negative); Nitrite Negative (Negative); Protein, Urine (Dipstick) 30 mg/dL (Neg-Trace); RBC/HPF Greater than 50 HPF (0-3); Specific Gravity, Urine 1.018 (1.002-1.036); Squamous Epithelial None Seen HPF (0-3); Urobilinogen Normal mg/dL (Less than 2); pH, Urine 5.5 (5.0-9.0)
[2022-05-05 04:12] LABS: #Basophils 0.1 thou/uL (0.0-0.2); #Eosinphils 0.2 thou/uL (0.0-0.7); #Lymphocytes 1.7 thou/uL (1.20-3.40); #Neutrophils 7.5 thou/uL (1.40-6.50); %Eosinophils 1.7 % (0.0-10.0); %Lymphocytes 16.1 % (21.0-51.0); %Monocytes 9.4 % (0.0-10.0); %Neutrophils 71.9 % (42.0-75.0); Hemoglobin 8.6 g/dL (12.0-16.0); Mean Corpuscular HGB CONC 30.6 g/dL (32.0-36.0); Mean Corpuscular Hemoglobin 30.3 pg (27.0-31.0); Mean Corpuscular Volume 99.1 fl (78.0-98.0); Mean Platelet Volume 8.8 fL (7.4-10.4); Platelet Count 402 10x3/uL (130-400); Red Blood Cell (RBC) Count 2.84 mill/uL (4.20-5.40); White Blood Cell (WBC) Count 10.4 10x3/uL (4.8-10.8)
[2022-05-05 04:35] LABS: Anion Gap 13 mmol/L (10-20); BUN (Urea Nitrogen) 59 mg/dL (9.8-20.1); Calc. Creatinine Clearance 76 mL/min (70-130); Carbon Dioxide 26 mmol/L (23-31); Chloride 115 mmol/L (98-107); Estimated GFR 50; Glucose 190 mg/dL (80-115); Phosphorus 4.8 mg/dL (2.3-4.7); Potassium 4.9 mmol/L (3.5-5.1); Sodium 149 mmol/L (136-145)
[2022-05-05] MEDS ORDERED: Penicillin G Potassium 4 MILL.UNITS in Sodium Chloride 0.9% 50 ML IVPB SCH (06:00)
[2022-05-05] MEDS: Penicillin G Potassium 4 MILL.UNITS in Sodium Chloride 0.9% 50 ML IVPB SCH (07:29)
[2022-05-05] MEDS: Clindamycin 150 MG CAP PO SCH ×3 (07:29→20:08)
[2022-05-05] MEDS: HumaLOG 300 UNITS/3 ML VIAL SC PRN (07:37)
[2022-05-05 09:39] LABS: Actual Bicarbonate (HCO3v) 28 mEq/L (22-28); Base Excess -1.1 mEq/L (-2.0 to +3.0); Calcium, Ionized (venous) 1.22 mmol/L (1.16-1.32); Chloride (VBG) 115 mmol/L (98-106); Hemoglobin (Hb) 10.3 g/dL (11.7-16.1); Potassium (VBG) 5.63 mmol/L (3.70-5.30); pH (venous) 7.21 (7.32-7.43)
[2022-05-05 10:10] LABS: Sodium 151.4 mmol/L (133-146)
[2022-05-05] MEDS: Senokot S 8.6-50 MG TAB PO SCH ×2 (10:17→19:35)
[2022-05-05] MEDS: Aspirin Chewable 81 MG TAB PO SCH (10:17)
[2022-05-05] MEDS: Polyethylene Glycol 3350 17 GM Packet PO SCH (10:17)
[2022-05-05] MEDS: Lansoprazole 15 MG/5 ML (BATCHED)UDCUP PER TUBE SCH (10:17)
[2022-05-05] MEDS: Cyanocobalamin (Vitamin B-12) 1,000 MCG TAB PO SCH (10:17)
[2022-05-05] MEDS: Heparin 5,000 UNITS/ML VIAL SC SCH ×2 (10:18→19:36)
[2022-05-05] MEDS: Carvedilol 25 MG TAB PO SCH ×2 (10:21→16:18)
[2022-05-05] MEDS: Penicillin V Potassium 250 MG TAB PO SCH ×3 (10:37→19:36)
[2022-05-05] MEDS: traMADol HCl 50 MG TAB PO PRN ×2 (12:07→19:35)
[2022-05-05] MEDS: Atorvastatin Calcium 40 MG TAB PO SCH (19:35)
[2022-05-05] MEDS: Labetalol HCl 100 MG/20 ML VIAL SLOW IVP PRN (19:37)
[2022-05-06] MEDS: Morphine 2 MG/ML VIAL SLOW IVP PRN ×3 (03:06→20:05)
[2022-05-06 04:30] LABS: #Basophils 0.1 thou/uL (0.0-0.2); #Eosinphils 0.2 thou/uL (0.0-0.7); #Lymphocytes 1.5 thou/uL (1.20-3.40); #Monocytes 0.8 thou/uL (0.11-0.59); #Neutrophils 8.4 thou/uL (1.40-6.50); %Basophils 0.9 % (0.0-1.0); %Eosinophils 1.5 % (0.0-10.0); %Lymphocytes 13.8 % (21.0-51.0); %Monocytes 7.4 % (0.0-10.0); %Neutrophils 76.5 % (42.0-75.0); Hemoglobin 8.3 g/dL (12.0-16.0); Mean Corpuscular HGB CONC 31.4 g/dL (32.0-36.0); Mean Corpuscular Hemoglobin 30.9 pg (27.0-31.0); Mean Corpuscular Volume 98.4 fl (78.0-98.0); Mean Platelet Volume 8.9 fL (7.4-10.4); Platelet Count 395 10x3/uL (130-400); Red Blood Cell (RBC) Count 2.68 mill/uL (4.20-5.40)
[2022-05-06] MEDS: traMADol HCl 50 MG TAB PO PRN ×3 (04:32→20:32)
[2022-05-06 04:50] LABS: Anion Gap 13 mmol/L (10-20); BUN (Urea Nitrogen) 59 mg/dL (9.8-20.1); Calc. Creatinine Clearance 68 mL/min (70-130); Calcium 9.1 mg/dL (7.8-10.44); Carbon Dioxide 24 mmol/L (23-31); Chloride 119 mmol/L (98-107); Estimated GFR 45; Glucose 194 mg/dL (80-115); Phosphorus 3.2 mg/dL (2.3-4.7); Potassium 4.8 mmol/L (3.5-5.1); Sodium 151 mmol/L (136-145)
[2022-05-06] MEDS: Clindamycin 150 MG CAP PO SCH ×3 (06:32→20:13)
[2022-05-06] MEDS: Polyethylene Glycol 3350 17 GM Packet PO SCH (07:47)
[2022-05-06] MEDS: Penicillin V Potassium 250 MG TAB PO SCH ×3 (08:16→20:13)
[2022-05-06] MEDS: Senokot S 8.6-50 MG TAB PO SCH ×2 (08:17→20:14)
[2022-05-06] MEDS: Aspirin Chewable 81 MG TAB PO SCH (08:17)
[2022-05-06] MEDS: Lansoprazole 15 MG/5 ML (BATCHED)UDCUP PER TUBE SCH (08:17)
[2022-05-06] MEDS: Heparin 5,000 UNITS/ML VIAL SC SCH ×2 (08:18→20:14)
[2022-05-06] MEDS: Carvedilol 25 MG TAB PO SCH ×2 (08:18→17:04)
[2022-05-06] MEDS: Cyanocobalamin (Vitamin B-12) 1,000 MCG TAB PO SCH (08:18)
[2022-05-06] MEDS ORDERED: Furosemide 20 MG/2 ML VIAL SLOW IVP SCH (08:45)
[2022-05-06] MEDS: Lisinopril 5 MG TAB PO SCH ×2 (10:52→20:13)
[2022-05-06 15:02] LABS: Albumin 2.5 g/dL (3.4-4.8); Anion Gap 15 mmol/L (10-20); BUN (Urea Nitrogen) 57 mg/dL (9.8-20.1); BUN/Creatinine Ratio 41.61; Calc. Creatinine Clearance 65 mL/min (70-130); Calcium 9.2 mg/dL (7.8-10.44); Carbon Dioxide 24 mmol/L (23-31); Chloride 116 mmol/L (98-107); Estimated GFR 43; Glucose 191 mg/dL (80-115); Phosphorus 3.2 mg/dL (2.3-4.7); Potassium 4.9 mmol/L (3.5-5.1); Sodium 150 mmol/L (136-145)
[2022-05-06] MEDS: HYDROcodone/Acetaminophen 5/325 mg Tablet PO PRN (18:43)
[2022-05-06] MEDS: Atorvastatin Calcium 40 MG TAB PO SCH (20:13)
[2022-05-07] MEDS: HYDROcodone/Acetaminophen 5/325 mg Tablet PO PRN ×4 (02:53→20:47)
[2022-05-07 05:21] LABS: #Basophils 0.1 thou/uL (0.0-0.2); #Eosinphils 0.2 thou/uL (0.0-0.7); #Lymphocytes 1.8 thou/uL (1.20-3.40); #Monocytes 0.6 thou/uL (0.11-0.59); #Neutrophils 7.5 thou/uL (1.40-6.50); %Basophils 0.8 % (0.0-1.0); %Eosinophils 1.7 % (0.0-10.0); %Lymphocytes 17.9 % (21.0-51.0); %Monocytes 5.6 % (0.0-10.0); Hemoglobin 7.5 g/dL (12.0-16.0); Mean Corpuscular HGB CONC 30.7 g/dL (32.0-36.0); Mean Corpuscular Hemoglobin 30.3 pg (27.0-31.0); Mean Corpuscular Volume 98.8 fl (78.0-98.0); Mean Platelet Volume 9.1 fL (7.4-10.4); Platelet Count 362 10x3/uL (130-400); RBC Distribution Width 14.3 % (11.5-14.5); Red Blood Cell (RBC) Count 2.49 mill/uL (4.20-5.40); White Blood Cell (WBC) Count 10.2 10x3/uL (4.8-10.8)
[2022-05-07] MEDS: Morphine 2 MG/ML VIAL SLOW IVP PRN ×2 (05:44→10:14)
[2022-05-07 05:47] LABS: Anion Gap 12 mmol/L (10-20); BUN (Urea Nitrogen) 62 mg/dL (9.8-20.1); Calc. Creatinine Clearance 57 mL/min (70-130); Calcium 8.6 mg/dL (7.8-10.44); Carbon Dioxide 27 mmol/L (23-31); Chloride 115 mmol/L (98-107); Estimated GFR 36; Glucose 185 mg/dL (80-115); Phosphorus 3.5 mg/dL (2.3-4.7); Potassium 4.9 mmol/L (3.5-5.1); Sodium 149 mmol/L (136-145)
[2022-05-07] MEDS: Clindamycin 150 MG CAP PO SCH ×3 (05:49→20:48)
[2022-05-07] MEDS: Penicillin V Potassium 250 MG TAB PO SCH ×3 (08:04→20:46)
[2022-05-07] MEDS: Albumin 25% 25 GM/100 ML BOT IVPB SCH ×2 (08:04→14:32)
[2022-05-07] MEDS: Lansoprazole 15 MG/5 ML (BATCHED)UDCUP PER TUBE SCH (08:04)
[2022-05-07] MEDS: Polyethylene Glycol 3350 17 GM Packet PO SCH (08:05)
[2022-05-07] MEDS: Lisinopril 5 MG TAB PO SCH ×2 (08:05→20:46)
[2022-05-07] MEDS: Heparin 5,000 UNITS/ML VIAL SC SCH ×2 (08:05→20:46)
[2022-05-07] MEDS: Aspirin Chewable 81 MG TAB PO SCH (08:05)
[2022-05-07] MEDS: Cyanocobalamin (Vitamin B-12) 1,000 MCG TAB PO SCH (08:05)
[2022-05-07] MEDS: Carvedilol 25 MG TAB PO SCH ×2 (08:05→16:57)
[2022-05-07] MEDS: Senokot S 8.6-50 MG TAB PO SCH ×2 (08:05→20:46)
[2022-05-07] MEDS: Metolazone 5 MG TAB PER TUBE SCH (08:05)
[2022-05-07] MEDS ORDERED: Potassium Chloride 20 MEQ TAB PO SCH (08:45)
[2022-05-07] MEDS ORDERED: Furosemide 20 MG/2 ML VIAL SLOW IVP SCH (09:00)
[2022-05-07] MEDS: Furosemide 20 MG/2 ML VIAL SLOW IVP SCH (10:11)
[2022-05-07] MEDS: traMADol HCl 50 MG TAB PO PRN (14:32)
[2022-05-07 16:30] LABS: Anion Gap 13 mmol/L (10-20); BUN (Urea Nitrogen) 64 mg/dL (9.8-20.1); Calc. Creatinine Clearance 55 mL/min (70-130); Calcium 8.8 mg/dL (7.8-10.44); Carbon Dioxide 28 mmol/L (23-31); Chloride 112 mmol/L (98-107); Estimated GFR 35; Glucose 187 mg/dL (80-115); Potassium 4.9 mmol/L (3.5-5.1); Sodium 148 mmol/L (136-145)
[2022-05-07] MEDS ORDERED: NOREPINEPHRINE 8 MG/250 ML-D5W 0 ML ONE (16:53)
[2022-05-07] MEDS: HumaLOG 300 UNITS/3 ML VIAL SC PRN (16:57)
[2022-05-07 17:52] LABS: Actual Bicarbonate (HCO3a) 30.1 mEq/L (22-28); Base Excess (BEa) 4.7 mEq/L (-2.0 to +3.0); CO2 Tension 49.3 mmHg (35.0-45.0); Calcium, Ionized (arterial) 1.18 mmol/L (1.12-1.30); Hemoglobin (Hb) 7.9 g/dL (12.0-16.0); O2 Tension (PaO2), arterial 62.1 mmHg (> 80.0); Potassium - ABG Lab 4.84 mmol/L (3.70-5.30)
[2022-05-07 17:53] LABS: Puncture Site Left Radial
[2022-05-07 17:54] LABS: ALV-art Gradient 47.395 mmHg (0-20)
[2022-05-07] MEDS: Atorvastatin Calcium 40 MG TAB PO SCH (20:41)
[2022-05-08] MEDS: Morphine 2 MG/ML VIAL SLOW IVP PRN ×5 (00:04→20:26)
[2022-05-08 04:49] LABS: #Basophils 0.1 thou/uL (0.0-0.2); #Eosinphils 0.3 thou/uL (0.0-0.7); #Lymphocytes 1.7 thou/uL (1.20-3.40); #Monocytes 0.6 thou/uL (0.11-0.59); #Neutrophils 7.5 thou/uL (1.40-6.50); %Basophils 0.6 % (0.0-1.0); %Lymphocytes 16.5 % (21.0-51.0); %Monocytes 5.7 % (0.0-10.0); %Neutrophils 74.3 % (42.0-75.0); Hemoglobin 7.6 g/dL (12.0-16.0); Mean Corpuscular HGB CONC 31.4 g/dL (32.0-36.0); Mean Corpuscular Hemoglobin 30.8 pg (27.0-31.0); Mean Platelet Volume 8.7 fL (7.4-10.4); Platelet Count 340 10x3/uL (130-400); RBC Distribution Width 14.1 % (11.5-14.5); Red Blood Cell (RBC) Count 2.46 mill/uL (4.20-5.40); White Blood Cell (WBC) Count 10.1 10x3/uL (4.8-10.8)
[2022-05-08 05:16] LABS: Anion Gap 14 mmol/L (10-20); BUN (Urea Nitrogen) 66 mg/dL (9.8-20.1); Calc. Creatinine Clearance 54 mL/min (70-130); Calcium 9.1 mg/dL (7.8-10.44); Carbon Dioxide 28 mmol/L (23-31); Chloride 112 mmol/L (98-107); Estimated GFR 35; Glucose 206 mg/dL (80-115); Phosphorus 3.6 mg/dL (2.3-4.7); Potassium 4.9 mmol/L (3.5-5.1); Sodium 149 mmol/L (136-145)
[2022-05-08] MEDS: Clindamycin 150 MG CAP PO SCH ×3 (06:00→21:23)
[2022-05-08] MEDS: Aspirin Chewable 81 MG TAB PO SCH (07:58)
[2022-05-08] MEDS: Lisinopril 5 MG TAB PO SCH ×2 (07:58→20:28)
[2022-05-08] MEDS: Lansoprazole 15 MG/5 ML (BATCHED)UDCUP PER TUBE SCH (07:58)
[2022-05-08] MEDS: Metolazone 5 MG TAB PER TUBE SCH (07:58)
[2022-05-08] MEDS: HYDROcodone/Acetaminophen 5/325 mg Tablet PO PRN (07:59)
[2022-05-08] MEDS: Cyanocobalamin (Vitamin B-12) 1,000 MCG TAB PO SCH (08:00)
[2022-05-08] MEDS: Furosemide 20 MG/2 ML VIAL SLOW IVP SCH (08:00)
[2022-05-08] MEDS: Heparin 5,000 UNITS/ML VIAL SC SCH ×2 (08:00→20:28)
[2022-05-08] MEDS: Carvedilol 25 MG TAB PO SCH ×3 (08:00→20:28)
[2022-05-08] MEDS: Penicillin V Potassium 250 MG TAB PO SCH ×3 (08:02→20:27)
[2022-05-08] MEDS: Polyethylene Glycol 3350 17 GM Packet PO SCH (08:03)
[2022-05-08] MEDS: Senokot S 8.6-50 MG TAB PO SCH ×2 (08:04→20:30)
[2022-05-08] MEDS ORDERED: Atropine Sulfate 1 mg/10 ml Syringe ONE (11:39)
[2022-05-08] MEDS: Atorvastatin Calcium 40 MG TAB PO SCH (20:28)
[2022-05-09] MEDS: Morphine 2 MG/ML VIAL SLOW IVP PRN ×3 (00:41→16:54)
[2022-05-09] MEDS: Clindamycin 150 MG CAP PO SCH ×3 (05:12→21:37)
[2022-05-09 07:43] LABS: #Eosinphils 0.3 thou/uL (0.0-0.7); #Lymphocytes 1.3 thou/uL (1.20-3.40); #Monocytes 0.5 thou/uL (0.11-0.59); #Neutrophils 6.4 thou/uL (1.40-6.50); %Basophils 0.5 % (0.0-1.0); %Eosinophils 3.1 % (0.0-10.0); %Lymphocytes 15.6 % (21.0-51.0); %Monocytes 5.7 % (0.0-10.0); Hemoglobin 8.1 g/dL (12.0-16.0); Mean Corpuscular HGB CONC 31.2 g/dL (32.0-36.0); Mean Corpuscular Hemoglobin 30.6 pg (27.0-31.0); Mean Corpuscular Volume 98.1 fl (78.0-98.0); Mean Platelet Volume 9.3 fL (7.4-10.4); Platelet Count 322 10x3/uL (130-400); RBC Distribution Width 13.9 % (11.5-14.5); Red Blood Cell (RBC) Count 2.64 mill/uL (4.20-5.40); White Blood Cell (WBC) Count 8.6 10x3/uL (4.8-10.8)
[2022-05-09 07:59] LABS: Anion Gap 14 mmol/L (10-20); BUN (Urea Nitrogen) 59 mg/dL (9.8-20.1); Calc. Creatinine Clearance 58 mL/min (70-130); Calcium 8.9 mg/dL (7.8-10.44); Carbon Dioxide 28 mmol/L (23-31); Chloride 108 mmol/L (98-107); Estimated GFR 39; Glucose 209 mg/dL (80-115); Phosphorus 3.6 mg/dL (2.3-4.7); Potassium 4.9 mmol/L (3.5-5.1); Sodium 145 mmol/L (136-145)
[2022-05-09] MEDS: Heparin 5,000 UNITS/ML VIAL SC SCH ×2 (08:03→21:38)
[2022-05-09] MEDS: Penicillin V Potassium 250 MG TAB PO SCH ×3 (08:04→21:37)
[2022-05-09] MEDS: Furosemide 20 MG/2 ML VIAL SLOW IVP SCH (08:04)
[2022-05-09] MEDS: Lansoprazole 15 MG/5 ML (BATCHED)UDCUP PER TUBE SCH (08:04)
[2022-05-09] MEDS: Metolazone 5 MG TAB PER TUBE SCH (08:04)
[2022-05-09] MEDS: HYDROcodone/Acetaminophen 5/325 mg Tablet PO PRN ×2 (08:04→22:42)
[2022-05-09] MEDS: Carvedilol 25 MG TAB PO SCH ×3 (08:05→21:33)
[2022-05-09] MEDS: Lisinopril 5 MG TAB PO SCH ×2 (08:05→21:36)
[2022-05-09] MEDS: Cyanocobalamin (Vitamin B-12) 1,000 MCG TAB PO SCH (08:05)
[2022-05-09] MEDS: Aspirin Chewable 81 MG TAB PO SCH (08:05)
[2022-05-09] MEDS: Senokot S 8.6-50 MG TAB PO SCH ×2 (08:06→21:37)
[2022-05-09] MEDS: Polyethylene Glycol 3350 17 GM Packet PO SCH (08:06)
[2022-05-09] MEDS: Atorvastatin Calcium 40 MG TAB PO SCH (21:33)
[2022-05-09] MEDS: HumaLOG 300 UNITS/3 ML VIAL SC PRN (21:46)
[2022-05-10] MEDS: Morphine 2 MG/ML VIAL SLOW IVP PRN ×4 (00:08→20:23)
[2022-05-10 03:42] LABS: #Eosinphils 0.3 thou/uL (0.0-0.7); #Lymphocytes 1.3 thou/uL (1.20-3.40); #Monocytes 0.4 thou/uL (0.11-0.59); #Neutrophils 6.1 thou/uL (1.40-6.50); %Basophils 0.2 % (0.0-1.0); %Eosinophils 3.6 % (0.0-10.0); %Lymphocytes 16.4 % (21.0-51.0); %Monocytes 4.6 % (0.0-10.0); %Neutrophils 75.2 % (42.0-75.0); Hemoglobin 6.9 g/dL (12.0-16.0); Mean Corpuscular HGB CONC 32.1 g/dL (32.0-36.0); Mean Corpuscular Volume 96.7 fl (78.0-98.0); Mean Platelet Volume 9.3 fL (7.4-10.4); Platelet Count 253 10x3/uL (130-400); RBC Distribution Width 13.7 % (11.5-14.5); Red Blood Cell (RBC) Count 2.22 mill/uL (4.20-5.40); White Blood Cell (WBC) Count 8.2 10x3/uL (4.8-10.8)
[2022-05-10 03:59] LABS: Phosphorus 4.2 mg/dL (2.3-4.7)
[2022-05-10 04:01] LABS: Anion Gap 13 mmol/L (10-20); BUN (Urea Nitrogen) 66 mg/dL (9.8-20.1); Calc. Creatinine Clearance 51 mL/min (70-130); Calcium 8.8 mg/dL (7.8-10.44); Carbon Dioxide 30 mmol/L (23-31); Chloride 105 mmol/L (98-107); Estimated GFR 33; Glucose 167 mg/dL (80-115); Potassium 4.8 mmol/L (3.5-5.1); Sodium 143 mmol/L (136-145)
[2022-05-10] MEDS: HumaLOG 300 UNITS/3 ML VIAL SC PRN ×2 (04:05→22:16)
[2022-05-10] MEDS: Clindamycin 150 MG CAP PO SCH ×3 (05:32→21:24)
[2022-05-10 06:10] LABS: Hemoglobin 7.2 g/dL (12.0-16.0)
[2022-05-10] MEDS: Furosemide 20 MG/2 ML VIAL SLOW IVP SCH (09:35)
[2022-05-10] MEDS: Aspirin Chewable 81 MG TAB PO SCH (09:38)
[2022-05-10] MEDS: Cyanocobalamin (Vitamin B-12) 1,000 MCG TAB PO SCH (09:38)
[2022-05-10] MEDS: Senokot S 8.6-50 MG TAB PO SCH ×2 (09:39→20:55)
[2022-05-10] MEDS: Carvedilol 25 MG TAB PO SCH ×3 (09:39→20:53)
[2022-05-10] MEDS: Polyethylene Glycol 3350 17 GM Packet PO SCH (09:39)
[2022-05-10] MEDS: Lansoprazole 15 MG/5 ML (BATCHED)UDCUP PER TUBE SCH (09:39)
[2022-05-10] MEDS: Heparin 5,000 UNITS/ML VIAL SC SCH ×2 (09:39→20:25)
[2022-05-10] MEDS: Penicillin V Potassium 250 MG TAB PO SCH ×3 (09:39→21:24)
[2022-05-10] MEDS: Lisinopril 5 MG TAB PO SCH ×2 (09:39→20:53)
[2022-05-10] MEDS: Metolazone 5 MG TAB PER TUBE SCH (09:58)
[2022-05-10] MEDS: Atorvastatin Calcium 40 MG TAB PO SCH (20:25)
[2022-05-10] MEDS: HYDROcodone/Acetaminophen 5/325 mg Tablet PO PRN (22:14)
[2022-05-11] MEDS: HumaLOG 300 UNITS/3 ML VIAL SC PRN ×2 (03:59→13:14)
[2022-05-11 04:28] LABS: Anion Gap 16 mmol/L (10-20); BUN (Urea Nitrogen) 80 mg/dL (9.8-20.1); Calc. Creatinine Clearance 47 mL/min (70-130); Calcium 8.6 mg/dL (7.8-10.44); Carbon Dioxide 28 mmol/L (23-31); Chloride 101 mmol/L (98-107); Estimated GFR 29; Glucose 169 mg/dL (80-115); Phosphorus 4.6 mg/dL (2.3-4.7); Potassium 5.2 mmol/L (3.5-5.1); Sodium 140 mmol/L (136-145)
[2022-05-11] MEDS: Clindamycin 150 MG CAP PO SCH (05:09)
[2022-05-11] MEDS: Aspirin Chewable 81 MG TAB PO SCH (08:52)
[2022-05-11] MEDS: Cyanocobalamin (Vitamin B-12) 1,000 MCG TAB PO SCH (08:52)
[2022-05-11] MEDS: Penicillin V Potassium 250 MG TAB PO SCH ×3 (08:52→20:48)
[2022-05-11] MEDS: HYDROcodone/Acetaminophen 5/325 mg Tablet PO PRN (08:52)
[2022-05-11] MEDS: Senokot S 8.6-50 MG TAB PO SCH ×2 (08:52→20:52)
[2022-05-11] MEDS: Furosemide 20 MG/2 ML VIAL SLOW IVP SCH (08:53)
[2022-05-11] MEDS: Lansoprazole 15 MG/5 ML (BATCHED)UDCUP PER TUBE SCH (08:53)
[2022-05-11] MEDS: Carvedilol 25 MG TAB PO SCH (08:53)
[2022-05-11] MEDS: Heparin 5,000 UNITS/ML VIAL SC SCH ×2 (08:53→21:09)
[2022-05-11] MEDS: Polyethylene Glycol 3350 17 GM Packet PO SCH (08:55)
[2022-05-11] MEDS ORDERED: hydrALAZINE 25 MG TAB PO SCH (09:00)
[2022-05-11 09:10] LABS: #Eosinphils 0.3 thou/uL (0.0-0.7); #Lymphocytes 1.5 thou/uL (1.20-3.40); #Monocytes 0.4 thou/uL (0.11-0.59); #Neutrophils 6.8 thou/uL (1.40-6.50); %Basophils 0.4 % (0.0-1.0); %Eosinophils 3.3 % (0.0-10.0); %Lymphocytes 16.3 % (21.0-51.0); %Monocytes 4.7 % (0.0-10.0); %Neutrophils 75.3 % (42.0-75.0); Hemoglobin 8.1 g/dL (12.0-16.0); Mean Corpuscular HGB CONC 32.2 g/dL (32.0-36.0); Mean Corpuscular Volume 96.3 fl (78.0-98.0); Mean Platelet Volume 9.3 fL (7.4-10.4); Platelet Count 274 10x3/uL (130-400); RBC Distribution Width 13.9 % (11.5-14.5); Red Blood Cell (RBC) Count 2.62 mill/uL (4.20-5.40); White Blood Cell (WBC) Count 9.1 10x3/uL (4.8-10.8)
[2022-05-11 09:33] LABS: Anion Gap 14 mmol/L (10-20); BUN (Urea Nitrogen) 76 mg/dL (9.8-20.1); Calc. Creatinine Clearance 52 mL/min (70-130); Calcium 8.7 mg/dL (7.8-10.44); Carbon Dioxide 28 mmol/L (23-31); Chloride 100 mmol/L (98-107); Estimated GFR 32; Glucose 188 mg/dL (80-115); Potassium 4.7 mmol/L (3.5-5.1); Sodium 137 mmol/L (136-145)
[2022-05-11 15:16] LABS: Actual Bicarbonate (HCO3v) 30 mEq/L (22-28); Base Excess 5.3 mEq/L (-2.0 to +3.0); Calcium, Ionized (venous) 1.13 mmol/L (1.16-1.32); Chloride (VBG) 101 mmol/L (98-106); Hemoglobin (Hb) 8.9 g/dL (11.7-16.1); Potassium (VBG) 4.93 mmol/L (3.70-5.30); Sodium 137.7 mmol/L (133-146); pH (venous) 7.43 (7.32-7.43)
[2022-05-11] MEDS: Acetaminophen 325 MG TAB PO PRN ×2 (15:31→20:55)
[2022-05-11] MEDS: Carvedilol 6.25 MG TAB PO SCH (20:50)
[2022-05-11] MEDS: Atorvastatin Calcium 40 MG TAB PO SCH (20:50)
[2022-05-11] MEDS: guaiFENesin ER 600 MG TAB PO SCH (20:51)
[2022-05-12] MEDS: traMADol HCl 50 MG TAB PO PRN ×2 (01:25→21:57)
[2022-05-12 03:55] LABS: Actual Bicarbonate (HCO3v) 32 mEq/L (22-28); Calcium, Ionized (venous) 1.12 mmol/L (1.16-1.32); Chloride (VBG) 100 mmol/L (98-106); Hemoglobin (Hb) 8.3 g/dL (11.7-16.1); Potassium (VBG) 4.45 mmol/L (3.70-5.30); Sodium 135.2 mmol/L (133-146); pH (venous) 7.48 (7.32-7.43)
[2022-05-12 04:03] LABS: #Eosinphils 0.3 thou/uL (0.0-0.7); #Lymphocytes 1.5 thou/uL (1.20-3.40); #Monocytes 0.5 thou/uL (0.11-0.59); #Neutrophils 7.6 thou/uL (1.40-6.50); %Basophils 0.1 % (0.0-1.0); %Eosinophils 2.6 % (0.0-10.0); %Lymphocytes 15.4 % (21.0-51.0); %Neutrophils 76.9 % (42.0-75.0); Hemoglobin 7.5 g/dL (12.0-16.0); Mean Corpuscular HGB CONC 33.3 g/dL (32.0-36.0); Mean Corpuscular Hemoglobin 31.8 pg (27.0-31.0); Mean Corpuscular Volume 95.4 fl (78.0-98.0); Mean Platelet Volume 9.4 fL (7.4-10.4); Platelet Count 240 10x3/uL (130-400); RBC Distribution Width 13.9 % (11.5-14.5); Red Blood Cell (RBC) Count 2.37 mill/uL (4.20-5.40); White Blood Cell (WBC) Count 9.9 10x3/uL (4.8-10.8)
[2022-05-12 04:23] LABS: Anion Gap 14 mmol/L (10-20); BUN (Urea Nitrogen) 75 mg/dL (9.8-20.1); Calc. Creatinine Clearance 53 mL/min (70-130); Calcium 8.7 mg/dL (7.8-10.44); Carbon Dioxide 28 mmol/L (23-31); Chloride 98 mmol/L (98-107); Estimated GFR 33; Glucose 194 mg/dL (80-115); Phosphorus 4.4 mg/dL (2.3-4.7); Potassium 4.4 mmol/L (3.5-5.1); Sodium 136 mmol/L (136-145)
[2022-05-12] MEDS: HumaLOG 300 UNITS/3 ML VIAL SC PRN ×2 (06:51→16:45)
[2022-05-12] MEDS: Penicillin V Potassium 250 MG TAB PO SCH ×3 (08:03→19:29)
[2022-05-12] MEDS: Aspirin Chewable 81 MG TAB PO SCH (08:03)
[2022-05-12] MEDS: Lansoprazole 15 MG/5 ML (BATCHED)UDCUP PER TUBE SCH (08:03)
[2022-05-12] MEDS: Cyanocobalamin (Vitamin B-12) 1,000 MCG TAB PO SCH (08:04)
[2022-05-12] MEDS: guaiFENesin ER 600 MG TAB PO SCH ×2 (08:04→19:29)
[2022-05-12] MEDS: Acetaminophen 325 MG TAB PO PRN ×3 (08:04→19:29)
[2022-05-12] MEDS: Heparin 5,000 UNITS/ML VIAL SC SCH ×2 (08:04→20:29)
[2022-05-12] MEDS: Carvedilol 6.25 MG TAB PO SCH ×2 (08:04→19:28)
[2022-05-12] MEDS: Furosemide 20 MG/2 ML VIAL SLOW IVP SCH (08:05)
[2022-05-12] MEDS: Polyethylene Glycol 3350 17 GM Packet PO SCH (08:05)
[2022-05-12] MEDS: Senokot S 8.6-50 MG TAB PO SCH ×2 (08:05→19:29)
[2022-05-12] MEDS: Albumin 25% 25 GM/100 ML BOT IVPB SCH ×2 (12:50→18:15)
[2022-05-12] MEDS: Atorvastatin Calcium 40 MG TAB PO SCH (19:28)
[2022-05-13] MEDS: Albumin 25% 25 GM/100 ML BOT IVPB SCH ×2 (00:35→05:36)
[2022-05-13] MEDS: HYDROcodone/Acetaminophen 5/325 mg Tablet PO PRN ×5 (03:23→21:20)
[2022-05-13] MEDS: HumaLOG 300 UNITS/3 ML VIAL SC PRN (06:24)
[2022-05-13 08:26] LABS: Anion Gap 12 mmol/L (10-20); BUN (Urea Nitrogen) 62 mg/dL (9.8-20.1); Calc. Creatinine Clearance 61 mL/min (70-130); Calcium 9.1 mg/dL (7.8-10.44); Carbon Dioxide 29 mmol/L (23-31); Chloride 100 mmol/L (98-107); Estimated GFR 39; Glucose 179 mg/dL (80-115); Potassium 3.8 mmol/L (3.5-5.1); Sodium 137 mmol/L (136-145)
[2022-05-13] MEDS: guaiFENesin ER 600 MG TAB PO SCH ×2 (09:06→21:19)
[2022-05-13] MEDS: Penicillin V Potassium 250 MG TAB PO SCH ×3 (09:06→21:19)
[2022-05-13] MEDS: Heparin 5,000 UNITS/ML VIAL SC SCH ×2 (09:07→21:20)
[2022-05-13] MEDS: Carvedilol 6.25 MG TAB PO SCH ×2 (09:07→21:19)
[2022-05-13] MEDS: Furosemide 20 MG/2 ML VIAL SLOW IVP SCH (09:07)
[2022-05-13] MEDS: Cyanocobalamin (Vitamin B-12) 1,000 MCG TAB PO SCH (09:07)
[2022-05-13] MEDS: Aspirin Chewable 81 MG TAB PO SCH (09:07)
[2022-05-13] MEDS: Polyethylene Glycol 3350 17 GM Packet PO SCH (09:08)
[2022-05-13] MEDS: Lansoprazole 15 MG/5 ML (BATCHED)UDCUP PER TUBE SCH (09:08)
[2022-05-13] MEDS: Senokot S 8.6-50 MG TAB PO SCH ×2 (09:09→21:21)
[2022-05-13 10:15] LABS: #Eosinphils 0.4 thou/uL (0.0-0.7); #Lymphocytes 1.2 thou/uL (1.20-3.40); #Monocytes 0.5 thou/uL (0.11-0.59); #Neutrophils 5.1 thou/uL (1.40-6.50); %Basophils 0.5 % (0.0-1.0); %Eosinophils 5.4 % (0.0-10.0); %Lymphocytes 16.8 % (21.0-51.0); %Monocytes 6.6 % (0.0-10.0); %Neutrophils 70.8 % (42.0-75.0); Hemoglobin 7.3 g/dL (12.0-16.0); Mean Corpuscular HGB CONC 32.5 g/dL (32.0-36.0); Mean Corpuscular Hemoglobin 30.7 pg (27.0-31.0); Mean Corpuscular Volume 94.6 fl (78.0-98.0); Mean Platelet Volume 8.9 fL (7.4-10.4); Platelet Count 252 10x3/uL (130-400); RBC Distribution Width 13.8 % (11.5-14.5); Red Blood Cell (RBC) Count 2.38 mill/uL (4.20-5.40); White Blood Cell (WBC) Count 7.2 10x3/uL (4.8-10.8)
[2022-05-13] MEDS: Atorvastatin Calcium 40 MG TAB PO SCH (21:19)
[2022-05-14] MEDS: traMADol HCl 50 MG TAB PO PRN ×3 (00:53→15:21)
[2022-05-14] MEDS: HYDROcodone/Acetaminophen 5/325 mg Tablet PO PRN ×3 (03:02→21:18)
[2022-05-14] MEDS: HumaLOG 300 UNITS/3 ML VIAL SC PRN (05:44)
[2022-05-14 07:26] LABS: #Eosinphils 0.4 thou/uL (0.0-0.7); #Lymphocytes 1.6 thou/uL (1.20-3.40); #Monocytes 0.6 thou/uL (0.11-0.59); #Neutrophils 5.7 thou/uL (1.40-6.50); %Basophils 0.4 % (0.0-1.0); %Eosinophils 4.6 % (0.0-10.0); %Lymphocytes 18.7 % (21.0-51.0); %Monocytes 7.6 % (0.0-10.0); %Neutrophils 68.6 % (42.0-75.0); Hemoglobin 7.7 g/dL (12.0-16.0); Mean Corpuscular HGB CONC 32.6 g/dL (32.0-36.0); Mean Corpuscular Hemoglobin 30.8 pg (27.0-31.0); Mean Corpuscular Volume 94.3 fl (78.0-98.0); Mean Platelet Volume 9.1 fL (7.4-10.4); Platelet Count 271 10x3/uL (130-400); RBC Distribution Width 14.2 % (11.5-14.5); White Blood Cell (WBC) Count 8.3 10x3/uL (4.8-10.8)
[2022-05-14 07:42] LABS: Anion Gap 13 mmol/L (10-20); BUN (Urea Nitrogen) 60 mg/dL (9.8-20.1); Calc. Creatinine Clearance 62 mL/min (70-130); Calcium 9.3 mg/dL (7.8-10.44); Carbon Dioxide 27 mmol/L (23-31); Chloride 101 mmol/L (98-107); Estimated GFR 43; Glucose 167 mg/dL (80-115); Phosphorus 3.6 mg/dL (2.3-4.7); Potassium 3.9 mmol/L (3.5-5.1); Sodium 137 mmol/L (136-145)
[2022-05-14] MEDS: Cyanocobalamin (Vitamin B-12) 1,000 MCG TAB PO SCH (07:59)
[2022-05-14] MEDS: Penicillin V Potassium 250 MG TAB PO SCH ×3 (07:59→21:17)
[2022-05-14] MEDS: guaiFENesin ER 600 MG TAB PO SCH ×2 (07:59→21:19)
[2022-05-14] MEDS: Carvedilol 6.25 MG TAB PO SCH ×2 (07:59→21:18)
[2022-05-14] MEDS: Aspirin Chewable 81 MG TAB PO SCH (07:59)
[2022-05-14] MEDS: Heparin 5,000 UNITS/ML VIAL SC SCH ×2 (07:59→21:19)
[2022-05-14] MEDS: Furosemide 20 MG/2 ML VIAL SLOW IVP SCH (07:59)
[2022-05-14] MEDS: Polyethylene Glycol 3350 17 GM Packet PO SCH (08:06)
[2022-05-14] MEDS: Senokot S 8.6-50 MG TAB PO SCH ×2 (08:06→21:19)
[2022-05-14] MEDS: Lansoprazole 15 MG/5 ML (BATCHED)UDCUP PER TUBE SCH (08:06)
[2022-05-14] MEDS: Acetaminophen 325 MG TAB PO PRN (13:38)
[2022-05-14] MEDS: Atorvastatin Calcium 40 MG TAB PO SCH (21:19)
[2022-05-14] MEDS: Morphine 2 MG/ML VIAL SLOW IVP PRN (22:46)
[2022-05-15] MEDS: traMADol HCl 50 MG TAB PO PRN (00:55)
[2022-05-15] MEDS: Morphine 2 MG/ML VIAL SLOW IVP PRN ×4 (03:53→20:29)
[2022-05-15 06:38] LABS: #Basophils 0.1 thou/uL (0.0-0.2); #Eosinphils 0.4 thou/uL (0.0-0.7); #Lymphocytes 1.6 thou/uL (1.20-3.40); #Monocytes 0.7 thou/uL (0.11-0.59); #Neutrophils 6.4 thou/uL (1.40-6.50); %Basophils 0.7 % (0.0-1.0); %Eosinophils 4.7 % (0.0-10.0); %Lymphocytes 17.3 % (21.0-51.0); %Monocytes 7.5 % (0.0-10.0); %Neutrophils 69.8 % (42.0-75.0); Hemoglobin 7.9 g/dL (12.0-16.0); Mean Corpuscular HGB CONC 32.4 g/dL (32.0-36.0); Mean Corpuscular Hemoglobin 30.7 pg (27.0-31.0); Mean Corpuscular Volume 94.7 fl (78.0-98.0); Mean Platelet Volume 8.9 fL (7.4-10.4); Platelet Count 289 10x3/uL (130-400); RBC Distribution Width 14.6 % (11.5-14.5); Red Blood Cell (RBC) Count 2.58 mill/uL (4.20-5.40); White Blood Cell (WBC) Count 9.2 10x3/uL (4.8-10.8)
[2022-05-15 06:45] LABS: Anion Gap 16 mmol/L (10-20); BUN (Urea Nitrogen) 57 mg/dL (9.8-20.1); Calc. Creatinine Clearance 58 mL/min (70-130); Calcium 9.1 mg/dL (7.8-10.44); Carbon Dioxide 26 mmol/L (23-31); Chloride 98 mmol/L (98-107); Estimated GFR 39; Glucose 197 mg/dL (80-115); Phosphorus 4.2 mg/dL (2.3-4.7); Potassium 3.9 mmol/L (3.5-5.1); Sodium 136 mmol/L (136-145)
[2022-05-15] MEDS: Furosemide 20 MG/2 ML VIAL SLOW IVP SCH (08:43)
[2022-05-15] MEDS: Amlodipine 5 MG TAB PO SCH (08:43)
[2022-05-15] MEDS: Aspirin Chewable 81 MG TAB PO SCH (08:43)
[2022-05-15] MEDS: Senokot S 8.6-50 MG TAB PO SCH ×2 (08:43→20:06)
[2022-05-15] MEDS: Lansoprazole 15 MG/5 ML (BATCHED)UDCUP PER TUBE SCH (08:43)
[2022-05-15] MEDS: Cyanocobalamin (Vitamin B-12) 1,000 MCG TAB PO SCH (08:43)
[2022-05-15] MEDS: guaiFENesin ER 600 MG TAB PO SCH ×2 (08:43→20:06)
[2022-05-15] MEDS: Penicillin V Potassium 250 MG TAB PO SCH ×3 (08:43→20:06)
[2022-05-15] MEDS: Carvedilol 6.25 MG TAB PO SCH ×2 (08:43→20:06)
[2022-05-15] MEDS: Heparin 5,000 UNITS/ML VIAL SC SCH ×2 (08:43→20:10)
[2022-05-15] MEDS: Polyethylene Glycol 3350 17 GM Packet PO SCH (08:44)
[2022-05-15] MEDS ORDERED: Gabapentin 300 MG CAP PO SCH (09:45)
[2022-05-15] MEDS: HumaLOG 300 UNITS/3 ML VIAL SC PRN (12:58)
[2022-05-15] MEDS: Gabapentin 100 MG CAP PO SCH ×2 (16:39→20:07)
[2022-05-15] MEDS: Atorvastatin Calcium 40 MG TAB PO SCH (20:05)
[2022-05-15] MEDS: Acetaminophen 325 MG TAB PO PRN (20:06)
[2022-05-15] MEDS ORDERED: Acetaminophen 325 MG TAB PO SCH (21:45)
[2022-05-15 22:15] LABS: Actual Bicarbonate (HCO3v) 29 mEq/L (22-28); Base Excess 6.4 mEq/L (-2.0 to +3.0); Calcium, Ionized (venous) 1.09 mmol/L (1.16-1.32); Chloride (VBG) 100 mmol/L (98-106); Hemoglobin (Hb) 8.7 g/dL (11.7-16.1); Potassium (VBG) 4.24 mmol/L (3.70-5.30); Sodium 136.3 mmol/L (133-146); pH (venous) 7.55 (7.32-7.43)
[2022-05-15 22:27] LABS: #Eosinphils 0.3 thou/uL (0.0-0.7); #Lymphocytes 1.4 thou/uL (1.20-3.40); #Monocytes 0.7 thou/uL (0.11-0.59); #Neutrophils 6.9 thou/uL (1.40-6.50); %Basophils 0.4 % (0.0-1.0); %Eosinophils 3.1 % (0.0-10.0); %Monocytes 7.7 % (0.0-10.0); %Neutrophils 73.9 % (42.0-75.0); Hemoglobin 8.1 g/dL (12.0-16.0); Mean Corpuscular HGB CONC 31.5 g/dL (32.0-36.0); Mean Corpuscular Volume 95.2 fl (78.0-98.0); Platelet Count 274 10x3/uL (130-400); RBC Distribution Width 15.4 % (11.5-14.5); Red Blood Cell (RBC) Count 2.69 mill/uL (4.20-5.40); White Blood Cell (WBC) Count 9.3 10x3/uL (4.8-10.8)
[2022-05-15 22:48] LABS: ALT (SGPT) 33 U/L (8-55); AST (SGOT) 32 U/L (5-34); Albumin 3.3 g/dL (3.4-4.8); Alkaline Phosphatase 95 U/L (40-110); Anion Gap 14 mmol/L (10-20); BUN (Urea Nitrogen) 62 mg/dL (9.8-20.1); Bilirubin, Total 0.9 mg/dL (0.2-1.2); Calc. Creatinine Clearance 46 mL/min (70-130); Calcium 9.3 mg/dL (7.8-10.44); Carbon Dioxide 28 mmol/L (23-31); Chloride 98 mmol/L (98-107); Estimated GFR 29; Globulin 4.9 g/dL (2.4-3.5); Glucose 188 mg/dL (80-115); Potassium 4.2 mmol/L (3.5-5.1); Protein, Total 8.2 g/dL (5.8-8.1); Sodium 136 mmol/L (136-145)
[2022-05-16] MEDS: HYDROcodone/Acetaminophen 5/325 mg Tablet PO PRN (04:41)
[2022-05-16 06:24] LABS: #Eosinphils 0.3 thou/uL (0.0-0.7); #Lymphocytes 1.6 thou/uL (1.20-3.40); #Monocytes 0.8 thou/uL (0.11-0.59); #Neutrophils 8.5 thou/uL (1.40-6.50); %Basophils 0.3 % (0.0-1.0); %Eosinophils 2.5 % (0.0-10.0); %Lymphocytes 14.4 % (21.0-51.0); %Monocytes 7.3 % (0.0-10.0); %Neutrophils 75.5 % (42.0-75.0); Hemoglobin 7.6 g/dL (12.0-16.0); Mean Corpuscular HGB CONC 31.7 g/dL (32.0-36.0); Mean Corpuscular Hemoglobin 30.4 pg (27.0-31.0); Mean Corpuscular Volume 95.9 fl (78.0-98.0); Mean Platelet Volume 8.9 fL (7.4-10.4); Platelet Count 283 10x3/uL (130-400); RBC Distribution Width 15.1 % (11.5-14.5); Red Blood Cell (RBC) Count 2.51 mill/uL (4.20-5.40); White Blood Cell (WBC) Count 11.2 10x3/uL (4.8-10.8)
[2022-05-16 06:44] LABS: Anion Gap 18 mmol/L (10-20); BUN (Urea Nitrogen) 69 mg/dL (9.8-20.1); Calc. Creatinine Clearance 41 mL/min (70-130); Calcium 9.4 mg/dL (7.8-10.44); Carbon Dioxide 26 mmol/L (23-31); Chloride 96 mmol/L (98-107); Estimated GFR 26; Glucose 206 mg/dL (80-115); Phosphorus 5.2 mg/dL (2.3-4.7); Potassium 4.8 mmol/L (3.5-5.1); Sodium 135 mmol/L (136-145)
[2022-05-16] MEDS: Senokot S 8.6-50 MG TAB PO SCH ×2 (09:44→21:09)
[2022-05-16] MEDS: guaiFENesin ER 600 MG TAB PO SCH ×2 (09:44→21:09)
[2022-05-16] MEDS: Penicillin V Potassium 250 MG TAB PO SCH (09:44)
[2022-05-16] MEDS: Carvedilol 6.25 MG TAB PO SCH (09:44)
[2022-05-16] MEDS: Aspirin Chewable 81 MG TAB PO SCH (09:44)
[2022-05-16] MEDS: Cyanocobalamin (Vitamin B-12) 1,000 MCG TAB PO SCH (09:45)
[2022-05-16] MEDS: Gabapentin 100 MG CAP PO SCH ×3 (09:45→21:09)
[2022-05-16] MEDS: Amlodipine 5 MG TAB PO SCH (09:46)
[2022-05-16] MEDS: Polyethylene Glycol 3350 17 GM Packet PO SCH (09:48)
[2022-05-16] MEDS: Heparin 5,000 UNITS/ML VIAL SC SCH ×2 (09:48→21:28)
[2022-05-16] MEDS: Lansoprazole 15 MG/5 ML (BATCHED)UDCUP PER TUBE SCH (09:48)
[2022-05-16] MEDS: Furosemide 20 MG/2 ML VIAL SLOW IVP SCH (09:49)
[2022-05-16] MEDS: Acetaminophen 325 MG TAB PO PRN (12:22)
[2022-05-16] MEDS ORDERED: [UNRECOGNIZED DRUG - OTHER] IVPB PRN (12:40)
[2022-05-16] MEDS ORDERED: Vancomycin 1 GM in Premix Bag 1 BAG IVPB SCH (12:45)
[2022-05-16] MEDS ORDERED: VANCOMYCIN 2 GRAM/500 ML BAG 2 GM in Premix Bag 1 BAG IVPB SCH ×2 (13:00→16:30)
[2022-05-16] MEDS ORDERED: Vancomycin Dose by Levels Sliding Scale (Wt 71-99) FS SCH (13:00)
[2022-05-16 13:02] LABS: Actual Bicarbonate (HCO3a) 31.3 mEq/L (22-28); Base Excess (BEa) 7.7 mEq/L (-2.0 to +3.0); CO2 Tension 39.8 mmHg (35.0-45.0); Calcium, Ionized (arterial) 1.16 mmol/L (1.12-1.30); Carboxyhemoglobin (COHb) 1.6 gm% (0.0-3.0); Hemoglobin (Hb) 8.8 g/dL (12.0-16.0); O2 Tension (PaO2), arterial 81.9 mmHg (> 80.0); Potassium - ABG Lab 5.02 mmol/L (3.70-5.30); pH, Arterial 7.51 (7.35-7.45)
[2022-05-16 13:04] LABS: Puncture Site LRA
[2022-05-16 13:48] LABS: #Eosinphils 0.2 thou/uL (0.0-0.7); #Lymphocytes 1.7 thou/uL (1.20-3.40); #Monocytes 0.6 thou/uL (0.11-0.59); #Neutrophils 11.7 thou/uL (1.40-6.50); %Basophils 0.1 % (0.0-1.0); %Eosinophils 1.7 % (0.0-10.0); %Lymphocytes 12.1 % (21.0-51.0); %Monocytes 4.4 % (0.0-10.0); %Neutrophils 81.8 % (42.0-75.0); Mean Corpuscular HGB CONC 31.9 g/dL (32.0-36.0); Mean Corpuscular Hemoglobin 30.1 pg (27.0-31.0); Mean Corpuscular Volume 94.4 fl (78.0-98.0); Mean Platelet Volume 8.9 fL (7.4-10.4); Platelet Count 267 10x3/uL (130-400); RBC Distribution Width 15.2 % (11.5-14.5); Red Blood Cell (RBC) Count 2.67 mill/uL (4.20-5.40); White Blood Cell (WBC) Count 14.3 10x3/uL (4.8-10.8)
[2022-05-16] MEDS ORDERED: Piperacillin/Tazobactam 3.375 GM in Sodium Chloride 0.9% 100 ML IVPB SCH (14:00)
[2022-05-16 14:10] LABS: ALT (SGPT) 29 U/L (8-55); AST (SGOT) 28 U/L (5-34); Albumin 3.4 g/dL (3.4-4.8); Alkaline Phosphatase 116 U/L (40-110); Anion Gap 17 mmol/L (10-20); BUN (Urea Nitrogen) 72 mg/dL (9.8-20.1); Calc. Creatinine Clearance 42 mL/min (70-130); Calcium 9.1 mg/dL (7.8-10.44); Carbon Dioxide 27 mmol/L (23-31); Chloride 95 mmol/L (98-107); Estimated GFR 26; Globulin 5.3 g/dL (2.4-3.5); Glucose 219 mg/dL (80-115); Potassium 4.8 mmol/L (3.5-5.1); Protein, Total 8.7 g/dL (5.8-8.1); Sodium 134 mmol/L (136-145)
[2022-05-16] MEDS ORDERED: Hydrocortisone Sod Succ/PF 100 mg/2 ml Vial IVP SCH ×2 (16:00→18:00)
[2022-05-16] MEDS: Piperacillin/Tazobactam 3.375 GM in Sodium Chloride 0.9% 100 ML IVPB SCH (16:09)
[2022-05-16] MEDS: Atorvastatin Calcium 40 MG TAB PO SCH (21:09)
[2022-05-16] MEDS: Hydrocortisone Sod Succ/PF 100 mg/2 ml Vial IVP SCH (23:13)
[2022-05-17 00:12] LABS: Bacteria/HPF None Seen HPF (None Seen); Bilirubin Negative (Negative); Blood, Urine Negative (Negative); CAUTI Indications for Culture Fever or rigors; Clarity Clear (Clear); Glucose, Urine (Dipstick) Normal (Negative); Ketone, Urine Negative (Negative); Leukocyte Negative Leu/uL (Negative); Nitrite Negative (Negative); Protein, Urine (Dipstick) 20 mg/dL (Neg-Trace); RBC/HPF 0-3 HPF (0-3); Specific Gravity, Urine 1.013 (1.002-1.036); Squamous Epithelial None Seen HPF (0-3); Urobilinogen Normal mg/dL (Less than 2); WBC/HPF 0-3 HPF (0-3)
[2022-05-17 00:16] LABS: Urine Culture Reflex No No
[2022-05-17] MEDS: Piperacillin/Tazobactam 3.375 GM in Sodium Chloride 0.9% 100 ML IVPB SCH ×3 (01:08→18:12)
[2022-05-17] MEDS: Hydrocortisone Sod Succ/PF 100 mg/2 ml Vial IVP SCH ×4 (05:33→23:15)
[2022-05-17 07:43] LABS: #Lymphocytes 1.1 thou/uL (1.20-3.40); #Monocytes 0.4 thou/uL (0.11-0.59); #Neutrophils 10.5 thou/uL (1.40-6.50); %Basophils 0.1 % (0.0-1.0); %Eosinophils 0.3 % (0.0-10.0); %Lymphocytes 8.9 % (21.0-51.0); %Monocytes 3.7 % (0.0-10.0); %Neutrophils 87.1 % (42.0-75.0); Mean Corpuscular HGB CONC 31.1 g/dL (32.0-36.0); Mean Corpuscular Hemoglobin 29.7 pg (27.0-31.0); Mean Corpuscular Volume 95.7 fl (78.0-98.0); Mean Platelet Volume 8.7 fL (7.4-10.4); Platelet Count 269 10x3/uL (130-400); RBC Distribution Width 14.7 % (11.5-14.5); Red Blood Cell (RBC) Count 2.35 mill/uL (4.20-5.40)
[2022-05-17 08:10] LABS: Anion Gap 17 mmol/L (10-20); BUN (Urea Nitrogen) 75 mg/dL (9.8-20.1); Calc. Creatinine Clearance 41 mL/min (70-130); Calcium 8.7 mg/dL (7.8-10.44); Carbon Dioxide 24 mmol/L (23-31); Chloride 100 mmol/L (98-107); Estimated GFR 26; Glucose 226 mg/dL (80-115); Phosphorus 5.4 mg/dL (2.3-4.7); Potassium 4.1 mmol/L (3.5-5.1); Sodium 137 mmol/L (136-145)
[2022-05-17] MEDS: Senokot S 8.6-50 MG TAB PO SCH ×2 (10:39→20:53)
[2022-05-17] MEDS: Polyethylene Glycol 3350 17 GM Packet PO SCH (10:40)
[2022-05-17] MEDS: Lansoprazole 15 MG/5 ML (BATCHED)UDCUP PER TUBE SCH (10:50)
[2022-05-17] MEDS: Gabapentin 100 MG CAP PO SCH ×3 (10:50→20:52)
[2022-05-17] MEDS: traMADol HCl 50 MG TAB PO PRN (10:51)
[2022-05-17] MEDS: Aspirin Chewable 81 MG TAB PO SCH (10:51)
[2022-05-17] MEDS: Cyanocobalamin (Vitamin B-12) 1,000 MCG TAB PO SCH (10:51)
[2022-05-17] MEDS: Heparin 5,000 UNITS/ML VIAL SC SCH ×2 (10:52→20:48)
[2022-05-17] MEDS: guaiFENesin ER 600 MG TAB PO SCH ×2 (10:54→20:53)
[2022-05-17] MEDS: Albumin 25% 25 GM/100 ML BOT IVPB SCH ×3 (10:58→23:15)
[2022-05-17 11:10] LABS: Vancomycin, Random 26.7 ug/mL (See Comment)
[2022-05-17] MEDS: HumaLOG 300 UNITS/3 ML VIAL SC PRN ×2 (14:26→20:52)
[2022-05-17] MEDS: Atorvastatin Calcium 40 MG TAB PO SCH (20:52)
[2022-05-17] MEDS: hydrALAZINE 20 MG/ML VIAL SLOW IVP PRN (22:13)
[2022-05-18] MEDS: Piperacillin/Tazobactam 3.375 GM in Sodium Chloride 0.9% 100 ML IVPB SCH ×3 (00:55→17:41)
[2022-05-18] MEDS: HumaLOG 300 UNITS/3 ML VIAL SC PRN ×4 (00:55→21:30)
[2022-05-18 04:50] LABS: Anion Gap 14 mmol/L (10-20); BUN (Urea Nitrogen) 64 mg/dL (9.8-20.1); Calc. Creatinine Clearance 56 mL/min (70-130); Carbon Dioxide 26 mmol/L (23-31); Chloride 103 mmol/L (98-107); Estimated GFR 38; Glucose 300 mg/dL (80-115); Phosphorus 3.6 mg/dL (2.3-4.7); Potassium 3.2 mmol/L (3.5-5.1); Sodium 140 mmol/L (136-145)
[2022-05-18] MEDS: Hydrocortisone Sod Succ/PF 100 mg/2 ml Vial IVP SCH ×3 (05:56→17:39)
[2022-05-18] MEDS: Albumin 25% 25 GM/100 ML BOT IVPB SCH ×3 (05:56→17:39)
[2022-05-18 07:28] LABS: #Lymphocytes 0.9 thou/uL (1.20-3.40); #Monocytes 0.5 thou/uL (0.11-0.59); #Neutrophils 8.4 thou/uL (1.40-6.50); %Basophils 0.2 % (0.0-1.0); %Eosinophils 0.3 % (0.0-10.0); %Lymphocytes 9.5 % (21.0-51.0); Hemoglobin 8.2 g/dL (12.0-16.0); Mean Corpuscular Volume 93.8 fl (78.0-98.0); Mean Platelet Volume 8.8 fL (7.4-10.4); Platelet Count 261 10x3/uL (130-400); RBC Distribution Width 14.2 % (11.5-14.5); Red Blood Cell (RBC) Count 2.64 mill/uL (4.20-5.40); White Blood Cell (WBC) Count 9.8 10x3/uL (4.8-10.8)
[2022-05-18] MEDS ORDERED: Potassium Bicarbonate/Cit Ac 20 MEQ TAB PER TUBE SCH (08:00)
[2022-05-18] MEDS: Aspirin Chewable 81 MG TAB PO SCH (09:14)
[2022-05-18] MEDS: Cyanocobalamin (Vitamin B-12) 1,000 MCG TAB PO SCH (09:14)
[2022-05-18] MEDS: Gabapentin 100 MG CAP PO SCH ×3 (09:15→21:28)
[2022-05-18] MEDS: Heparin 5,000 UNITS/ML VIAL SC SCH ×2 (09:17→21:30)
[2022-05-18] MEDS: guaiFENesin ER 600 MG TAB PO SCH ×2 (09:17→21:29)
[2022-05-18] MEDS: Polyethylene Glycol 3350 17 GM Packet PO SCH (09:18)
[2022-05-18] MEDS: Lansoprazole 15 MG/5 ML (BATCHED)UDCUP PER TUBE SCH (09:18)
[2022-05-18] MEDS: Senokot S 8.6-50 MG TAB PO SCH ×2 (09:19→21:29)
[2022-05-18 13:17] LABS: Vancomycin, Random 17.7 ug/mL (See Comment)
[2022-05-18] MEDS ORDERED: Vancomycin HCl 500 MG in Sodium Chloride 0.9% 100 ML IVPB SCH (15:00)
[2022-05-18] MEDS: Atorvastatin Calcium 40 MG TAB PO SCH (21:28)
[2022-05-18] MEDS: traMADol HCl 50 MG TAB PO PRN (21:40)
[2022-05-18] MEDS: Labetalol HCl 100 MG/20 ML VIAL SLOW IVP PRN (23:04)
[2022-05-19] MEDS: Hydrocortisone Sod Succ/PF 100 mg/2 ml Vial IVP SCH ×4 (00:15→20:33)
[2022-05-19] MEDS: hydrALAZINE 20 MG/ML VIAL SLOW IVP PRN ×4 (00:15→11:18)
[2022-05-19] MEDS: Albumin 25% 25 GM/100 ML BOT IVPB SCH ×2 (00:15→06:04)
[2022-05-19] MEDS: Morphine 2 MG/ML VIAL SLOW IVP PRN ×3 (02:35→13:42)
[2022-05-19] MEDS: Labetalol HCl 100 MG/20 ML VIAL SLOW IVP PRN ×5 (03:10→19:28)
[2022-05-19] MEDS ORDERED: Furosemide 20 MG/2 ML VIAL SLOW IVP SCH ×2 (03:45→06:30)
[2022-05-19 04:42] LABS: Anion Gap 19 mmol/L (10-20); BUN (Urea Nitrogen) 63 mg/dL (9.8-20.1); Calc. Creatinine Clearance 60 mL/min (70-130); Calcium 9.1 mg/dL (7.8-10.44); Carbon Dioxide 21 mmol/L (23-31); Chloride 104 mmol/L (98-107); Estimated GFR 41; Glucose 301 mg/dL (80-115); Phosphorus 2.7 mg/dL (2.3-4.7); Sodium 141 mmol/L (136-145)
[2022-05-19 06:47] LABS: #Lymphocytes 0.9 thou/uL (1.20-3.40); #Monocytes 0.9 thou/uL (0.11-0.59); #Neutrophils 14.7 thou/uL (1.40-6.50); %Eosinophils 0.1 % (0.0-10.0); %Lymphocytes 5.5 % (21.0-51.0); %Monocytes 5.6 % (0.0-10.0); %Neutrophils 88.7 % (42.0-75.0); Hemoglobin 8.3 g/dL (12.0-16.0); Mean Corpuscular HGB CONC 32.6 g/dL (32.0-36.0); Mean Corpuscular Hemoglobin 30.5 pg (27.0-31.0); Mean Corpuscular Volume 93.5 fl (78.0-98.0); Mean Platelet Volume 8.6 fL (7.4-10.4); Platelet Count 238 10x3/uL (130-400); RBC Distribution Width 14.6 % (11.5-14.5); Red Blood Cell (RBC) Count 2.72 mill/uL (4.20-5.40); White Blood Cell (WBC) Count 16.6 10x3/uL (4.8-10.8)
[2022-05-19] MEDS: HumaLOG 300 UNITS/3 ML VIAL SC PRN (06:51)
[2022-05-19] MEDS ORDERED: Potassium Chloride 20 MEQ TAB PO SCH (08:00)
[2022-05-19] MEDS: Aspirin Chewable 81 MG TAB PO SCH (08:31)
[2022-05-19] MEDS: Gabapentin 100 MG CAP PO SCH ×3 (08:32→20:28)
[2022-05-19] MEDS: Heparin 5,000 UNITS/ML VIAL SC SCH ×2 (08:33→20:34)
[2022-05-19] MEDS: guaiFENesin ER 600 MG TAB PO SCH ×2 (08:33→20:29)
[2022-05-19] MEDS: Lansoprazole 15 MG/5 ML (BATCHED)UDCUP PER TUBE SCH (08:34)
[2022-05-19] MEDS: traMADol HCl 50 MG TAB PO PRN (08:35)
[2022-05-19] MEDS: Cyanocobalamin (Vitamin B-12) 1,000 MCG TAB PO SCH (08:36)
[2022-05-19] MEDS: Polyethylene Glycol 3350 17 GM Packet PO SCH (08:41)
[2022-05-19] MEDS: Senokot S 8.6-50 MG TAB PO SCH ×2 (08:41→20:29)
[2022-05-19] MEDS ORDERED: hydrALAZINE 25 MG TAB PO SCH (11:45)
[2022-05-19] MEDS ORDERED: Amlodipine 10 MG TAB PO SCH (11:45)
[2022-05-19] MEDS ORDERED: Furosemide 40 MG/4 ML VIAL SLOW IVP SCH (14:00)
[2022-05-19 14:36] LABS: Potassium 2.7 mmol/L (3.5-5.1)
[2022-05-19] MEDS: hydrALAZINE 25 MG TAB PO SCH ×2 (15:41→20:29)
[2022-05-19] MEDS ORDERED: cloNIDine 0.1mg/24 Hour PATCH TD SCH (17:00)
[2022-05-19] MEDS: Potassium Chloride 20 MEQ in Premix Bag 1 BAG IVPB SCH ×2 (19:41→21:54)
[2022-05-19] MEDS ORDERED: Metoprolol Tartrate 5 MG/5 ML VIAL IVP PRN (20:16)
[2022-05-19] MEDS: Atorvastatin Calcium 40 MG TAB PO SCH (20:28)
[2022-05-19 20:42] LABS: Actual Bicarbonate (HCO3a) 30.2 mEq/L (22-28); Base Excess (BEa) 5.1 mEq/L (-2.0 to +3.0); CO2 Tension 47.2 mmHg (35.0-45.0); Calcium, Ionized (arterial) 1.18 mmol/L (1.12-1.30); Carboxyhemoglobin (COHb) 0.8 gm% (0.0-3.0); pH, Arterial 7.42 (7.35-7.45)
[2022-05-19 20:44] LABS: Puncture Site RRA
[2022-05-19 20:58] LABS: ALT (SGPT) 13 U/L (8-55); AST (SGOT) 18 U/L (5-34); Albumin 4.5 g/dL (3.4-4.8); Alkaline Phosphatase 86 U/L (40-110); Anion Gap 17 mmol/L (10-20); BUN (Urea Nitrogen) 63 mg/dL (9.8-20.1); Calc. Creatinine Clearance 62 mL/min (70-130); Calcium 9.6 mg/dL (7.8-10.44); Carbon Dioxide 26 mmol/L (23-31); Chloride 107 mmol/L (98-107); Estimated GFR 41; Globulin 4.2 g/dL (2.4-3.5); Glucose 201 mg/dL (80-115); Protein, Total 8.7 g/dL (5.8-8.1); Sodium 147 mmol/L (136-145)
[2022-05-19] MEDS ORDERED: niCARdipine 40MG In NaCl 40 MG/200 ML BAG IVPB SCH (21:00)
[2022-05-19 21:07] LABS: Potassium 2.5 mmol/L (3.5-5.1)
[2022-05-19] MEDS ORDERED: niCARdipine 50 MG in Sodium Chloride 0.9% 250 ML 230 ML IV SCH (21:15)
[2022-05-19] MEDS ORDERED: Furosemide 100 MG/10 ML VIAL SLOW IVP SCH (21:30)
[2022-05-19 21:59] LABS: Magnesium 1.9 mg/dL (1.6-2.6)
[2022-05-20 04:21] LABS: Hemoglobin 8.8 g/dL (12.0-16.0); Mean Corpuscular HGB CONC 31.7 g/dL (32.0-36.0); Mean Corpuscular Hemoglobin 30.1 pg (27.0-31.0); Mean Corpuscular Volume 94.9 fl (78.0-98.0); Mean Platelet Volume 9.2 fL (7.4-10.4); Platelet Count 275 10x3/uL (130-400); RBC Distribution Width 14.8 % (11.5-14.5); Red Blood Cell (RBC) Count 2.92 mill/uL (4.20-5.40); White Blood Cell (WBC) Count 23.7 10x3/uL (4.8-10.8)
[2022-05-20 04:39] LABS: Anion Gap 19 mmol/L (10-20); BUN (Urea Nitrogen) 65 mg/dL (9.8-20.1); Calc. Creatinine Clearance 65 mL/min (70-130); Calcium 9.8 mg/dL (7.8-10.44); Carbon Dioxide 26 mmol/L (23-31); Chloride 110 mmol/L (98-107); Estimated GFR 44; Glucose 211 mg/dL (80-115); Phosphorus 1.1 mg/dL (2.3-4.7); Potassium 2.7 mmol/L (3.5-5.1); Sodium 152 mmol/L (136-145)
[2022-05-20] MEDS ORDERED: Magnesium 2 GM/50 ML(in water) 2 GM in Premix Bag 1 BAG IVPB SCH ×2 (05:00→23:59)
[2022-05-20] MEDS ORDERED: PHOS-NAK 1 PKT PACK PO SCH (05:00)
[2022-05-20 05:10] LABS: Band 4 % (5-11); Lymphocytes 5 % (21-51); MDiff Complete? YES; Monocytes 5 % (0-10); Neutrophil 86 % (42-75)
[2022-05-20] MEDS ORDERED: Potassium Phosphate 30 MMOL in Sodium Chloride 0.9% 500 ML IVPB SCH (05:30)
[2022-05-20] MEDS: Morphine 2 MG/ML VIAL SLOW IVP PRN (07:33)
[2022-05-20] MEDS ORDERED: Potassium Chloride 20 MEQ TAB PO SCH (08:00)
[2022-05-20] MEDS: Heparin 5,000 UNITS/ML VIAL SC SCH ×2 (09:00→21:38)
[2022-05-20] MEDS: Gabapentin 100 MG CAP PO SCH ×3 (09:00→21:37)
[2022-05-20] MEDS: Amlodipine 5 MG TAB PO SCH (09:00)
[2022-05-20] MEDS: Aspirin Chewable 81 MG TAB PO SCH (09:00)
[2022-05-20] MEDS: Cyanocobalamin (Vitamin B-12) 1,000 MCG TAB PO SCH (09:00)
[2022-05-20] MEDS: Lansoprazole 15 MG/5 ML (BATCHED)UDCUP PER TUBE SCH (09:00)
[2022-05-20] MEDS: Polyethylene Glycol 3350 17 GM Packet PO SCH (09:00)
[2022-05-20] MEDS: guaiFENesin ER 600 MG TAB PO SCH ×2 (09:00→21:02)
[2022-05-20] MEDS: Senokot S 8.6-50 MG TAB PO SCH ×2 (09:00→21:36)
[2022-05-20] MEDS: hydrALAZINE 25 MG TAB PO SCH ×3 (09:00→21:01)
[2022-05-20] MEDS ORDERED: niCARdipine 50 MG, Admixture Fee 1 EACH in Sodium Chloride 0.9% 250 ML 230 ML IV SCH (10:00)
[2022-05-20] MEDS ORDERED: Midazolam HCl 2 mg/2 ml Vial ONE ×3 (10:08→12:44)
[2022-05-20] MEDS ORDERED: Morphine 4 MG/ML VIAL SLOW IVP PRN (10:27)
[2022-05-20] MEDS ORDERED: Morphine 4 MG/ML VIAL SLOW IVP SCH (10:30)
[2022-05-20] MEDS: Hydrocortisone Sod Succ/PF 100 mg/2 ml Vial IVP SCH ×2 (12:15→21:38)
[2022-05-20] MEDS ORDERED: Ventilator Sedation Protocol FS SCH (12:25)
[2022-05-20] MEDS ORDERED: Lorazepam 2 MG/ML VIAL SLOW IVP PRN (12:45)
[2022-05-20] MEDS ORDERED: Fentanyl BOLUS 250 ML IVPB PRN (12:45)
[2022-05-20] MEDS ORDERED: DISCONTINUE PREVIOUS NARCOTIC PAIN MEDICATIONS AND BENZODIAZEPINES FS SCH (12:45)
[2022-05-20] MEDS ORDERED: Propofol BOLUS 1,000 MG/100 ML VIAL IV PRN (12:45)
[2022-05-20] MEDS ORDERED: Vecuronium 10 MG VIAL ONE (12:49)
[2022-05-20] MEDS ORDERED: Propofol 1,000 MG/100 ML VIAL IV ONE (13:08)
[2022-05-20] MEDS: Propofol 1,000 MG/100 ML VIAL IV PRN (13:47)
[2022-05-20] MEDS ORDERED: Fentanyl CADD 100 ML ONE (14:22)
[2022-05-20] MEDS: Fentanyl CADD 100 ML IV SCH (14:35)
[2022-05-20] MEDS ORDERED: Meropenem 1 GM in Sodium Chloride 0.9% 100 ML IVPB SCH ×2 (15:15→22:00)
[2022-05-20 15:55] LABS: Anion Gap 21 mmol/L (10-20); BUN (Urea Nitrogen) 65 mg/dL (9.8-20.1); Calc. Creatinine Clearance 67 mL/min (70-130); Calcium 9.6 mg/dL (7.8-10.44); Carbon Dioxide 23 mmol/L (23-31); Chloride 115 mmol/L (98-107); Estimated GFR 46; Glucose 182 mg/dL (80-115); Phosphorus 2.2 mg/dL (2.3-4.7); Sodium 156 mmol/L (136-145)
[2022-05-20] MEDS: Atorvastatin Calcium 40 MG TAB PO SCH (21:36)
[2022-05-20] MEDS: Acetaminophen 325 MG TAB PO PRN (21:49)
[2022-05-20] MEDS: Meropenem 1 GM in Sodium Chloride 0.9% 100 ML IVPB SCH (23:32)
[2022-05-20] MEDS ORDERED: Potassium Bicarbonate/Cit Ac 20 MEQ TAB PER TUBE SCH (23:59)
[2022-05-21] MEDS: HumaLOG 300 UNITS/3 ML VIAL SC PRN (05:17)
[2022-05-21 07:31] LABS: Actual Bicarbonate (HCO3a) 26.3 mEq/L (22-28); Base Excess (BEa) 4.9 mEq/L (-2.0 to +3.0); CO2 Tension 28.3 mmHg (35.0-45.0); Calcium, Ionized (arterial) 1.18 mmol/L (1.12-1.30); Carboxyhemoglobin (COHb) 0.7 gm% (0.0-3.0); Hemoglobin (Hb) 10.4 g/dL (12.0-16.0); Potassium - ABG Lab 3.15 mmol/L (3.70-5.30); pH, Arterial 7.59 (7.35-7.45)
[2022-05-21 07:39] LABS: O2 Tension (PaO2), arterial 55.1 mmHg (> 80.0)
[2022-05-21 07:40] LABS: ALV-art Gradient 230.375 mmHg (0-20); Puncture Site RRA
[2022-05-21] MEDS: Heparin 5,000 UNITS/ML VIAL SC SCH ×2 (08:56→20:49)
[2022-05-21] MEDS: Hydrocortisone Sod Succ/PF 100 mg/2 ml Vial IVP SCH ×2 (08:57→20:50)
[2022-05-21] MEDS: Senokot S 8.6-50 MG TAB PO SCH ×2 (08:58→20:51)
[2022-05-21] MEDS: Polyethylene Glycol 3350 17 GM Packet PO SCH (08:59)
[2022-05-21] MEDS: Gabapentin 100 MG CAP PO SCH ×3 (08:59→20:49)
[2022-05-21] MEDS: Aspirin Chewable 81 MG TAB PO SCH (08:59)
[2022-05-21] MEDS: guaiFENesin ER 600 MG TAB PO SCH (09:00)
[2022-05-21] MEDS: hydrALAZINE 25 MG TAB PO SCH ×3 (09:00→20:50)
[2022-05-21 09:02] LABS: Band 8 % (5-11); Hemoglobin 7.4 g/dL (12.0-16.0); Lymphocytes 9 % (21-51); MDiff Complete? YES; Mean Corpuscular HGB CONC 32.1 g/dL (32.0-36.0); Mean Corpuscular Hemoglobin 30.3 pg (27.0-31.0); Mean Corpuscular Volume 94.5 fl (78.0-98.0); Mean Platelet Volume 9.7 fL (7.4-10.4); Monocytes 2 % (0-10); Neutrophil 80 % (42-75); Platelet Count 241 10x3/uL (130-400); Platelet Morphology Comment Appears Adequate; RBC Distribution Width 15.1 % (11.5-14.5); RBC Morphology Normal; Reactive Lymphocytes 1 % (0-10); Red Blood Cell (RBC) Count 2.44 mill/uL (4.20-5.40); White Blood Cell (WBC) Count 17.5 10x3/uL (4.8-10.8)
[2022-05-21 09:06] LABS: ALT (SGPT) 30 U/L (8-55); AST (SGOT) 49 U/L (5-34); Albumin 3.3 g/dL (3.4-4.8); Alkaline Phosphatase 106 U/L (40-110); Anion Gap 19 mmol/L (10-20); BUN (Urea Nitrogen) 80 mg/dL (9.8-20.1); Bilirubin, Total 3.2 mg/dL (0.2-1.2); Calc. Creatinine Clearance 41 mL/min (70-130); Calcium 9.6 mg/dL (7.8-10.44); Carbon Dioxide 24 mmol/L (23-31); Chloride 115 mmol/L (98-107); Estimated GFR 27; Globulin 3.7 g/dL (2.4-3.5); Glucose 194 mg/dL (80-115); Potassium 3.2 mmol/L (3.5-5.1); Sodium 155 mmol/L (136-145)
[2022-05-21] MEDS: Lansoprazole 15 MG/5 ML (BATCHED)UDCUP PER TUBE SCH (10:56)
[2022-05-21] MEDS: Amlodipine 5 MG TAB PO SCH (10:57)
[2022-05-21] MEDS: Meropenem 1 GM in Sodium Chloride 0.9% 100 ML IVPB SCH ×2 (10:58→23:11)
[2022-05-21] MEDS ORDERED: Potassium Bicarbonate/Cit Ac 20 MEQ TAB PER TUBE SCH ×2 (11:00→20:30)
[2022-05-21] MEDS ORDERED: Potassium Phosphate 22 MMOL in Sodium Chloride 0.9% 250 ML 250 ML IVPB SCH (11:00)
[2022-05-21] MEDS: Cyanocobalamin (Vitamin B-12) 1,000 MCG TAB PO SCH (11:00)
[2022-05-21] MEDS ORDERED: Fentanyl CADD 100 ML ONE (14:27)
[2022-05-21] MEDS: Dextrose 5% in Water 1,000 ML IV SCH (15:29)
[2022-05-21 16:54] LABS: Anion Gap 16 mmol/L (10-20); BUN (Urea Nitrogen) 81 mg/dL (9.8-20.1); Calc. Creatinine Clearance 44 mL/min (70-130); Calcium 9.2 mg/dL (7.8-10.44); Carbon Dioxide 26 mmol/L (23-31); Chloride 115 mmol/L (98-107); Estimated GFR 29; Glucose 165 mg/dL (80-115); Potassium 3.4 mmol/L (3.5-5.1)
[2022-05-21 17:01] LABS: Sodium 154 mmol/L (136-145)
[2022-05-21 17:15] LABS: Potassium 3.4 mmol/L (3.5-5.1)
[2022-05-21] MEDS: Atorvastatin Calcium 40 MG TAB PO SCH (20:49)
[2022-05-22 04:39] LABS: #Eosinphils 0.2 thou/uL (0.0-0.7); #Lymphocytes 1.1 thou/uL (1.20-3.40); #Monocytes 0.2 thou/uL (0.11-0.59); #Neutrophils 13.5 thou/uL (1.40-6.50); %Basophils 0.2 % (0.0-1.0); %Eosinophils 1.2 % (0.0-10.0); %Lymphocytes 7.5 % (21.0-51.0); %Monocytes 1.4 % (0.0-10.0); %Neutrophils 89.8 % (42.0-75.0); Hemoglobin 7.5 g/dL (12.0-16.0); Mean Corpuscular HGB CONC 32.7 g/dL (32.0-36.0); Mean Corpuscular Volume 94.6 fl (78.0-98.0); Mean Platelet Volume 9.8 fL (7.4-10.4); Platelet Count 231 10x3/uL (130-400); RBC Distribution Width 15.2 % (11.5-14.5); Red Blood Cell (RBC) Count 2.41 mill/uL (4.20-5.40)
[2022-05-22 04:52] LABS: Magnesium 2.8 mg/dL (1.6-2.6); Phosphorus 3.8 mg/dL (2.3-4.7)
[2022-05-22] MEDS: Propofol 1,000 MG/100 ML VIAL IV PRN (05:04)
[2022-05-22] MEDS: HumaLOG 300 UNITS/3 ML VIAL SC PRN (05:28)
[2022-05-22 06:04] LABS: Anion Gap 19 mmol/L (10-20); BUN (Urea Nitrogen) 77 mg/dL (9.8-20.1); Calc. Creatinine Clearance 47 mL/min (70-130); Calcium 9.2 mg/dL (7.8-10.44); Carbon Dioxide 25 mmol/L (23-31); Chloride 116 mmol/L (98-107); Estimated GFR 32; Glucose 206 mg/dL (80-115); Potassium 3.9 mmol/L (3.5-5.1)
[2022-05-22 06:15] LABS: Sodium 156 mmol/L (136-145)
[2022-05-22] MEDS: Aspirin Chewable 81 MG TAB PO SCH (08:14)
[2022-05-22] MEDS: Senokot S 8.6-50 MG TAB PO SCH ×2 (08:14→20:33)
[2022-05-22] MEDS: Gabapentin 100 MG CAP PO SCH ×3 (08:15→20:33)
[2022-05-22] MEDS: Amlodipine 5 MG TAB PO SCH (08:16)
[2022-05-22] MEDS: Hydrocortisone Sod Succ/PF 100 mg/2 ml Vial IVP SCH ×2 (08:16→20:35)
[2022-05-22] MEDS: Polyethylene Glycol 3350 17 GM Packet PO SCH (08:16)
[2022-05-22] MEDS: Heparin 5,000 UNITS/ML VIAL SC SCH ×2 (08:23→20:32)
[2022-05-22] MEDS: hydrALAZINE 25 MG TAB PO SCH ×3 (09:35→20:34)
[2022-05-22] MEDS ORDERED: Lidocaine 1% w/Epinephrine 1:100K 20 ML VIAL FS SCH (09:45)
[2022-05-22] MEDS ORDERED: Midazolam HCl 2 mg/2 ml Vial FS SCH (09:45)
[2022-05-22] MEDS ORDERED: Vecuronium 10 MG VIAL FS SCH (09:45)
[2022-05-22] MEDS: Cyanocobalamin (Vitamin B-12) 1,000 MCG TAB PO SCH (09:52)
[2022-05-22] MEDS: Meropenem 1 GM in Sodium Chloride 0.9% 100 ML IVPB SCH ×2 (10:00→22:17)
[2022-05-22] MEDS: Lansoprazole 15 MG/5 ML (BATCHED)UDCUP PER TUBE SCH (10:00)
[2022-05-22 11:55] LABS: O2 Tension (PaO2), arterial 46.6 mmHg (> 80.0)
[2022-05-22 11:56] LABS: Potassium - ABG Lab 2.53 mmol/L (3.70-5.30)
[2022-05-22] MEDS ORDERED: Fentanyl CADD 100 ML ONE (12:02)
[2022-05-22] MEDS: Fentanyl CADD 100 ML IV SCH (12:08)
[2022-05-22] MEDS ORDERED: Midazolam HCl 2 mg/2 ml Vial IVP SCH (13:45)
[2022-05-22] MEDS: Dextrose 5% in Water 1,000 ML IV SCH (16:00)
[2022-05-22] MEDS: Atorvastatin Calcium 40 MG TAB PO SCH (20:33)
[2022-05-23] MEDS: Propofol 1,000 MG/100 ML VIAL IV PRN (02:08)
[2022-05-23] MEDS: Fentanyl CADD 100 ML IV SCH (07:34)
[2022-05-23 08:39] LABS: #Eosinphils 0.3 thou/uL (0.0-0.7); #Lymphocytes 1.4 thou/uL (1.20-3.40); #Monocytes 0.2 thou/uL (0.11-0.59); #Neutrophils 5.5 thou/uL (1.40-6.50); %Basophils 0.6 % (0.0-1.0); %Eosinophils 4.6 % (0.0-10.0); %Lymphocytes 18.4 % (21.0-51.0); %Monocytes 3.2 % (0.0-10.0); %Neutrophils 73.2 % (42.0-75.0); Mean Corpuscular HGB CONC 30.3 g/dL (32.0-36.0); Mean Corpuscular Hemoglobin 30.4 pg (27.0-31.0); Mean Platelet Volume 9.8 fL (7.4-10.4); Platelet Count 245 10x3/uL (130-400); RBC Distribution Width 15.3 % (11.5-14.5); Red Blood Cell (RBC) Count 2.63 mill/uL (4.20-5.40); White Blood Cell (WBC) Count 7.5 10x3/uL (4.8-10.8)
[2022-05-23 08:45] LABS: Anion Gap 19 mmol/L (10-20); BUN (Urea Nitrogen) 62 mg/dL (9.8-20.1); Calc. Creatinine Clearance 59 mL/min (70-130); Calcium 9.3 mg/dL (7.8-10.44); Carbon Dioxide 20 mmol/L (23-31); Chloride 115 mmol/L (98-107); Estimated GFR 42; Glucose 145 mg/dL (80-115); Magnesium 2.6 mg/dL (1.6-2.6); Phosphorus 3.8 mg/dL (2.3-4.7); Potassium 3.4 mmol/L (3.5-5.1)
[2022-05-23 08:53] LABS: Sodium 151 mmol/L (136-145)
[2022-05-23] MEDS: Polyethylene Glycol 3350 17 GM Packet PO SCH (09:04)
[2022-05-23] MEDS: hydrALAZINE 25 MG TAB PO SCH ×3 (09:05→20:58)
[2022-05-23] MEDS: Cyanocobalamin (Vitamin B-12) 1,000 MCG TAB PO SCH (09:05)
[2022-05-23] MEDS: Aspirin Chewable 81 MG TAB PO SCH (09:05)
[2022-05-23] MEDS: Gabapentin 100 MG CAP PO SCH ×3 (09:05→20:58)
[2022-05-23] MEDS: Amlodipine 5 MG TAB PO SCH (09:06)
[2022-05-23] MEDS: Hydrocortisone Sod Succ/PF 100 mg/2 ml Vial IVP SCH ×2 (09:07→20:58)
[2022-05-23] MEDS: Senokot S 8.6-50 MG TAB PO SCH ×2 (09:07→20:58)
[2022-05-23] MEDS: Lansoprazole 15 MG/5 ML (BATCHED)UDCUP PER TUBE SCH (09:08)
[2022-05-23] MEDS: Heparin 5,000 UNITS/ML VIAL SC SCH ×2 (09:08→20:58)
[2022-05-23] MEDS ORDERED: Potassium Bicarbonate/Cit Ac 20 MEQ TAB PER TUBE SCH (09:30)
[2022-05-23] MEDS ORDERED: Lorazepam 2 MG/ML VIAL SLOW IVP SCH (10:15)
[2022-05-23] MEDS ORDERED: Meropenem 1 GM in Sodium Chloride 0.9% 100 ML IVPB SCH (11:00)
[2022-05-23] MEDS ORDERED: Sterile Water 10 ML VIAL IVP SCH (13:00)
[2022-05-23] MEDS: Dextrose 5% in Water 1,000 ML IV SCH (14:51)
[2022-05-23 17:37] LABS: Anion Gap 16 mmol/L (10-20); BUN (Urea Nitrogen) 57 mg/dL (9.8-20.1); Calc. Creatinine Clearance 60 mL/min (70-130); Calcium 9.4 mg/dL (7.8-10.44); Carbon Dioxide 27 mmol/L (23-31); Chloride 118 mmol/L (98-107); Estimated GFR 43; Glucose 171 mg/dL (80-115); Potassium 3.5 mmol/L (3.5-5.1)
[2022-05-23 17:48] LABS: Sodium 157 mmol/L (136-145)
[2022-05-23] MEDS: Atorvastatin Calcium 40 MG TAB PO SCH (20:58)
[2022-05-24] MEDS: Dextrose 5% in Water 1,000 ML IV SCH (00:25)
[2022-05-24] MEDS: Meropenem 1 GM in Sodium Chloride 0.9% 100 ML IVPB SCH ×2 (00:26→11:02)
[2022-05-24 05:34] LABS: #Eosinphils 0.3 thou/uL (0.0-0.7); #Lymphocytes 1.2 thou/uL (1.20-3.40); #Monocytes 0.4 thou/uL (0.11-0.59); #Neutrophils 6.2 thou/uL (1.40-6.50); %Basophils 0.1 % (0.0-1.0); %Eosinophils 3.6 % (0.0-10.0); %Lymphocytes 14.9 % (21.0-51.0); %Monocytes 5.2 % (0.0-10.0); %Neutrophils 76.1 % (42.0-75.0); Hemoglobin 7.8 g/dL (12.0-16.0); Mean Corpuscular HGB CONC 31.5 g/dL (32.0-36.0); Mean Corpuscular Hemoglobin 30.3 pg (27.0-31.0); Mean Corpuscular Volume 96.3 fl (78.0-98.0); Mean Platelet Volume 9.1 fL (7.4-10.4); Platelet Count 214 10x3/uL (130-400); RBC Distribution Width 15.1 % (11.5-14.5); Red Blood Cell (RBC) Count 2.55 mill/uL (4.20-5.40); White Blood Cell (WBC) Count 8.2 10x3/uL (4.8-10.8)
[2022-05-24 05:41] LABS: Anion Gap 16 mmol/L (10-20); BUN (Urea Nitrogen) 48 mg/dL (9.8-20.1); Calc. Creatinine Clearance 69 mL/min (70-130); Carbon Dioxide 24 mmol/L (23-31); Chloride 119 mmol/L (98-107); Estimated GFR 52; Glucose 158 mg/dL (80-115); Magnesium 2.3 mg/dL (1.6-2.6); Phosphorus 3.3 mg/dL (2.3-4.7)
[2022-05-24 05:44] LABS: Sodium 156 mmol/L (136-145)
[2022-05-24] MEDS ORDERED: Potassium Bicarbonate/Cit Ac 20 MEQ TAB PER TUBE SCH (08:00)
[2022-05-24] MEDS: Polyethylene Glycol 3350 17 GM Packet PO SCH (09:11)
[2022-05-24] MEDS: Aspirin Chewable 81 MG TAB PO SCH (09:11)
[2022-05-24] MEDS: Gabapentin 100 MG CAP PO SCH ×3 (09:12→21:45)
[2022-05-24] MEDS: Lansoprazole 15 MG/5 ML (BATCHED)UDCUP PER TUBE SCH (09:12)
[2022-05-24] MEDS: Hydrocortisone Sod Succ/PF 100 mg/2 ml Vial IVP SCH ×2 (09:13→21:47)
[2022-05-24] MEDS: Heparin 5,000 UNITS/ML VIAL SC SCH ×2 (09:13→22:09)
[2022-05-24] MEDS: hydrALAZINE 25 MG TAB PO SCH ×3 (09:14→21:43)
[2022-05-24] MEDS: Amlodipine 5 MG TAB PO SCH (09:15)
[2022-05-24] MEDS ORDERED: Losartan 25 MG TAB PO SCH (09:15)
[2022-05-24] MEDS: Senokot S 8.6-50 MG TAB PO SCH ×2 (09:15→22:20)
[2022-05-24] MEDS: Cyanocobalamin (Vitamin B-12) 1,000 MCG TAB PO SCH (09:25)
[2022-05-24] MEDS: HYDROcodone/Acetaminophen 5/325 mg Tablet PO PRN (10:32)
[2022-05-24] MEDS: HumaLOG 300 UNITS/3 ML VIAL SC PRN (15:36)
[2022-05-24] MEDS: Atorvastatin Calcium 40 MG TAB PO SCH (21:43)
[2022-05-24] MEDS: Acetaminophen 325 MG TAB PO PRN (21:46)
[2022-05-25] MEDS: Meropenem 1 GM in Sodium Chloride 0.9% 100 ML IVPB SCH (00:32)
[2022-05-25] MEDS: HYDROcodone/Acetaminophen 5/325 mg Tablet PO PRN ×2 (02:15→15:29)
[2022-05-25 04:33] LABS: #Eosinphils 0.2 thou/uL (0.0-0.7); #Lymphocytes 1.5 thou/uL (1.20-3.40); #Monocytes 0.4 thou/uL (0.11-0.59); #Neutrophils 11.7 thou/uL (1.40-6.50); %Basophils 0.3 % (0.0-1.0); %Eosinophils 1.3 % (0.0-10.0); %Lymphocytes 10.7 % (21.0-51.0); %Monocytes 3.2 % (0.0-10.0); %Neutrophils 84.5 % (42.0-75.0); Hemoglobin 8.4 g/dL (12.0-16.0); Mean Corpuscular HGB CONC 34.5 g/dL (32.0-36.0); Mean Corpuscular Volume 95.7 fl (78.0-98.0); Mean Platelet Volume 9.3 fL (7.4-10.4); Platelet Count 204 10x3/uL (130-400); RBC Distribution Width 15.1 % (11.5-14.5); Red Blood Cell (RBC) Count 2.54 mill/uL (4.20-5.40); White Blood Cell (WBC) Count 13.9 10x3/uL (4.8-10.8)
[2022-05-25 05:05] LABS: Phosphorus 2.5 mg/dL (2.3-4.7)
[2022-05-25] MEDS: HumaLOG 300 UNITS/3 ML VIAL SC PRN ×4 (06:25→23:16)
[2022-05-25 07:48] LABS: Anion Gap 11 mmol/L (10-20); BUN (Urea Nitrogen) 38 mg/dL (9.8-20.1); Calc. Creatinine Clearance 77 mL/min (70-130); Calcium 8.8 mg/dL (7.8-10.44); Carbon Dioxide 26 mmol/L (23-31); Chloride 118 mmol/L (98-107); Estimated GFR 58; Glucose 152 mg/dL (80-115); Potassium 3.3 mmol/L (3.5-5.1)
[2022-05-25 07:53] LABS: Sodium 152 mmol/L (136-145)
[2022-05-25] MEDS ORDERED: Potassium Chloride 20 MEQ TAB PO SCH (08:15)
[2022-05-25] MEDS: hydrALAZINE 25 MG TAB PO SCH ×3 (08:24→21:00)
[2022-05-25] MEDS: Cyanocobalamin (Vitamin B-12) 1,000 MCG TAB PO SCH (08:24)
[2022-05-25] MEDS: Gabapentin 100 MG CAP PO SCH ×3 (08:24→21:01)
[2022-05-25] MEDS: Polyethylene Glycol 3350 17 GM Packet PO SCH (08:24)
[2022-05-25] MEDS: Aspirin Chewable 81 MG TAB PO SCH (08:24)
[2022-05-25] MEDS: Losartan 25 MG TAB PO SCH (08:25)
[2022-05-25] MEDS: Senokot S 8.6-50 MG TAB PO SCH ×2 (08:26→21:01)
[2022-05-25] MEDS: Hydrocortisone Sod Succ/PF 100 mg/2 ml Vial IVP SCH (08:26)
[2022-05-25] MEDS: Heparin 5,000 UNITS/ML VIAL SC SCH ×2 (08:27→21:00)
[2022-05-25] MEDS: Lansoprazole 15 MG/5 ML (BATCHED)UDCUP PER TUBE SCH (08:29)
[2022-05-25] MEDS: Amlodipine 5 MG TAB PO SCH (09:30)
[2022-05-25] MEDS ORDERED: Ammonium Lactate 12% Lotion 225 GM BOT TOP PRN (10:52)
[2022-05-25] MEDS: Dextrose 5% in Water 1,000 ML IV SCH (15:29)
[2022-05-25] MEDS: Lorazepam 2 MG/ML VIAL SLOW IVP PRN (21:00)
[2022-05-25] MEDS: Atorvastatin Calcium 40 MG TAB PO SCH (21:01)
[2022-05-26] MEDS: HumaLOG 300 UNITS/3 ML VIAL SC PRN ×2 (04:58→11:23)
[2022-05-26 05:56] LABS: #Eosinphils 0.8 thou/uL (0.0-0.7); #Monocytes 0.7 thou/uL (0.11-0.59); #Neutrophils 11.8 thou/uL (1.40-6.50); %Basophils 0.2 % (0.0-1.0); %Eosinophils 5.2 % (0.0-10.0); %Lymphocytes 13.2 % (21.0-51.0); %Monocytes 4.4 % (0.0-10.0); %Neutrophils 76.9 % (42.0-75.0); Hemoglobin 7.8 g/dL (12.0-16.0); Mean Corpuscular HGB CONC 30.5 g/dL (32.0-36.0); Mean Corpuscular Hemoglobin 29.3 pg (27.0-31.0); Mean Corpuscular Volume 96.3 fl (78.0-98.0); Mean Platelet Volume 9.3 fL (7.4-10.4); Platelet Count 185 10x3/uL (130-400); RBC Distribution Width 15.3 % (11.5-14.5); Red Blood Cell (RBC) Count 2.66 mill/uL (4.20-5.40); White Blood Cell (WBC) Count 15.3 10x3/uL (4.8-10.8)
[2022-05-26 06:17] LABS: Anion Gap 14 mmol/L (10-20); BUN (Urea Nitrogen) 40 mg/dL (9.8-20.1); Calc. Creatinine Clearance 75 mL/min (70-130); Calcium 8.5 mg/dL (7.8-10.44); Carbon Dioxide 21 mmol/L (23-31); Chloride 114 mmol/L (98-107); Estimated GFR 55; Glucose 197 mg/dL (80-115); Phosphorus 2.2 mg/dL (2.3-4.7); Potassium 3.4 mmol/L (3.5-5.1); Sodium 146 mmol/L (136-145)
[2022-05-26] MEDS ORDERED: Magnesium 2 GM/50 ML(in water) 2 GM in Premix Bag 1 BAG IVPB SCH (08:00)
[2022-05-26] MEDS ORDERED: Potassium Chloride 20 MEQ TAB PO SCH (08:00)
[2022-05-26] MEDS: Lansoprazole 15 MG/5 ML (BATCHED)UDCUP PER TUBE SCH (08:48)
[2022-05-26] MEDS: hydrALAZINE 25 MG TAB PO SCH ×3 (08:48→21:09)
[2022-05-26] MEDS: Heparin 5,000 UNITS/ML VIAL SC SCH ×2 (08:48→21:10)
[2022-05-26] MEDS: Aspirin Chewable 81 MG TAB PO SCH (08:48)
[2022-05-26] MEDS: Losartan 25 MG TAB PO SCH (08:49)
[2022-05-26] MEDS: Cyanocobalamin (Vitamin B-12) 1,000 MCG TAB PO SCH (08:49)
[2022-05-26] MEDS: Senokot S 8.6-50 MG TAB PO SCH ×2 (08:50→21:10)
[2022-05-26] MEDS: Amlodipine 5 MG TAB PO SCH (08:50)
[2022-05-26] MEDS: Gabapentin 100 MG CAP PO SCH ×3 (08:50→21:08)
[2022-05-26] MEDS: Polyethylene Glycol 3350 17 GM Packet PO SCH (08:51)
[2022-05-26] MEDS ORDERED: cloNIDine 0.2mg/24 Hour PATCH TD SCH (09:00)
[2022-05-26] MEDS: Lorazepam 2 MG/ML VIAL SLOW IVP PRN (10:00)
[2022-05-26] MEDS: PHOS-NAK 1 PKT PACK PO SCH ×2 (10:25→13:26)
[2022-05-26] MEDS ORDERED: Sodium Chloride 0.9% 1,000 ML IV SCH (13:30)
[2022-05-26] MEDS: Dextrose 5% in Water 1,000 ML IV SCH (15:39)
[2022-05-26] MEDS: Atorvastatin Calcium 40 MG TAB PO SCH (21:08)
[2022-05-26] MEDS: Morphine 2 MG/ML VIAL SLOW IVP PRN (23:05)
[2022-05-27] MEDS: guaiFENesin 200 MG TAB PO PRN (04:08)
[2022-05-27] MEDS: Morphine 2 MG/ML VIAL SLOW IVP PRN (04:13)
[2022-05-27] MEDS: HumaLOG 300 UNITS/3 ML VIAL SC PRN (06:13)
[2022-05-27 06:57] LABS: #Eosinphils 0.8 thou/uL (0.0-0.7); #Lymphocytes 1.6 thou/uL (1.20-3.40); #Monocytes 0.5 thou/uL (0.11-0.59); #Neutrophils 10.4 thou/uL (1.40-6.50); %Basophils 0.3 % (0.0-1.0); %Eosinophils 5.7 % (0.0-10.0); %Lymphocytes 12.2 % (21.0-51.0); %Monocytes 3.9 % (0.0-10.0); %Neutrophils 77.9 % (42.0-75.0); Hemoglobin 8.1 g/dL (12.0-16.0); Mean Corpuscular HGB CONC 31.3 g/dL (32.0-36.0); Mean Corpuscular Hemoglobin 29.9 pg (27.0-31.0); Mean Corpuscular Volume 95.6 fl (78.0-98.0); Mean Platelet Volume 9.9 fL (7.4-10.4); Platelet Count 169 10x3/uL (130-400); RBC Distribution Width 15.3 % (11.5-14.5); Red Blood Cell (RBC) Count 2.71 mill/uL (4.20-5.40); White Blood Cell (WBC) Count 13.3 10x3/uL (4.8-10.8)
[2022-05-27 07:20] LABS: Anion Gap 15 mmol/L (10-20); BUN (Urea Nitrogen) 42 mg/dL (9.8-20.1); Calc. Creatinine Clearance 84 mL/min (70-130); Calcium 8.1 mg/dL (7.8-10.44); Carbon Dioxide 20 mmol/L (23-31); Chloride 115 mmol/L (98-107); Estimated GFR 62; Glucose 176 mg/dL (80-115); Phosphorus 3.5 mg/dL (2.3-4.7); Potassium 3.9 mmol/L (3.5-5.1); Sodium 146 mmol/L (136-145)
[2022-05-27] MEDS: Aspirin Chewable 81 MG TAB PO SCH (07:56)
[2022-05-27] MEDS: HYDROcodone/Acetaminophen 5/325 mg Tablet PO PRN ×2 (07:56→15:12)
[2022-05-27] MEDS: Amlodipine 5 MG TAB PO SCH (07:57)
[2022-05-27] MEDS: Gabapentin 100 MG CAP PO SCH ×3 (07:57→21:21)
[2022-05-27] MEDS: hydrALAZINE 25 MG TAB PO SCH ×3 (07:57→21:23)
[2022-05-27] MEDS ORDERED: Furosemide 40 MG/4 ML VIAL SLOW IVP SCH (08:00)
[2022-05-27] MEDS: Lansoprazole 15 MG/5 ML (BATCHED)UDCUP PER TUBE SCH (08:04)
[2022-05-27] MEDS: Cyanocobalamin (Vitamin B-12) 1,000 MCG TAB PO SCH (08:04)
[2022-05-27] MEDS: Heparin 5,000 UNITS/ML VIAL SC SCH ×2 (08:04→21:22)
[2022-05-27] MEDS: Losartan 25 MG TAB PO SCH (08:04)
[2022-05-27] MEDS: Senokot S 8.6-50 MG TAB PO SCH ×2 (08:05→21:23)
[2022-05-27] MEDS: Polyethylene Glycol 3350 17 GM Packet PO SCH (08:05)
[2022-05-27] MEDS: Lorazepam 2 MG/ML VIAL SLOW IVP PRN ×2 (15:12→22:15)
[2022-05-27] MEDS: Atorvastatin Calcium 40 MG TAB PO SCH (21:21)
[2022-05-27] MEDS: Acetaminophen 650 MG/20.3 ML UDCUP PER TUBE PRN (21:30)
[2022-05-28 04:03] LABS: #Eosinphils 0.5 thou/uL (0.0-0.7); #Lymphocytes 1.3 thou/uL (1.20-3.40); #Monocytes 0.4 thou/uL (0.11-0.59); #Neutrophils 6.6 thou/uL (1.40-6.50); %Basophils 0.3 % (0.0-1.0); %Lymphocytes 14.6 % (21.0-51.0); %Monocytes 4.8 % (0.0-10.0); %Neutrophils 74.3 % (42.0-75.0); Hemoglobin 7.4 g/dL (12.0-16.0); Mean Corpuscular HGB CONC 31.3 g/dL (32.0-36.0); Mean Corpuscular Hemoglobin 29.8 pg (27.0-31.0); Mean Corpuscular Volume 95.2 fl (78.0-98.0); Platelet Count 160 10x3/uL (130-400); Red Blood Cell (RBC) Count 2.47 mill/uL (4.20-5.40); White Blood Cell (WBC) Count 8.9 10x3/uL (4.8-10.8)
[2022-05-28 04:24] LABS: Anion Gap 14 mmol/L (10-20); BUN (Urea Nitrogen) 43 mg/dL (9.8-20.1); Calc. Creatinine Clearance 74 mL/min (70-130); Calcium 8.3 mg/dL (7.8-10.44); Carbon Dioxide 24 mmol/L (23-31); Chloride 114 mmol/L (98-107); Estimated GFR 54; Glucose 162 mg/dL (80-115); Phosphorus 3.8 mg/dL (2.3-4.7); Potassium 3.8 mmol/L (3.5-5.1); Sodium 148 mmol/L (136-145)
[2022-05-28] MEDS: Morphine 2 MG/ML VIAL SLOW IVP PRN (09:14)
[2022-05-28] MEDS: Albumin 25% 25 GM/100 ML BOT IVPB SCH ×3 (09:18→23:24)
[2022-05-28] MEDS: Heparin 5,000 UNITS/ML VIAL SC SCH ×2 (09:18→21:06)
[2022-05-28] MEDS: Gabapentin 100 MG CAP PO SCH ×3 (09:18→21:05)
[2022-05-28] MEDS: Amlodipine 5 MG TAB PO SCH (09:19)
[2022-05-28] MEDS: Aspirin Chewable 81 MG TAB PO SCH (09:19)
[2022-05-28] MEDS: hydrALAZINE 25 MG TAB PO SCH ×3 (09:19→21:32)
[2022-05-28] MEDS: Senokot S 8.6-50 MG TAB PO SCH ×2 (09:28→21:06)
[2022-05-28] MEDS: guaiFENesin 200 MG TAB PO PRN ×2 (09:28→21:07)
[2022-05-28] MEDS: Lansoprazole 15 MG/5 ML (BATCHED)UDCUP PER TUBE SCH (09:28)
[2022-05-28] MEDS: Polyethylene Glycol 3350 17 GM Packet PO SCH (09:28)
[2022-05-28] MEDS: Cyanocobalamin (Vitamin B-12) 1,000 MCG TAB PO SCH (09:28)
[2022-05-28] MEDS: Furosemide 40 MG/4 ML VIAL SLOW IVP SCH ×2 (10:30→18:27)
[2022-05-28] MEDS: Acetaminophen 650 MG/20.3 ML UDCUP PER TUBE PRN ×2 (11:26→21:07)
[2022-05-28] MEDS ORDERED: VANCOMYCIN 2 GRAM/500 ML BAG 2 GM in Premix Bag 1 BAG IVPB SCH (11:30)
[2022-05-28] MEDS ORDERED: Dexmedetomidine In 0.9 % NaCl 100 ML IVPB SCH (11:30)
[2022-05-28] MEDS ORDERED: Meropenem 2 GM in Sodium Chloride 0.9% 100 ML IVPB SCH (14:00)
[2022-05-28] MEDS ORDERED: Meropenem 1 GM in Sodium Chloride 0.9% 100 ML IVPB SCH (14:00)
[2022-05-28] MEDS: HumaLOG 300 UNITS/3 ML VIAL SC PRN (16:08)
[2022-05-28] MEDS: Atorvastatin Calcium 40 MG TAB PO SCH (21:04)
[2022-05-28] MEDS: Meropenem 1 GM in Sodium Chloride 0.9% 100 ML IVPB SCH (21:34)
[2022-05-29] MEDS: Furosemide 40 MG/4 ML VIAL SLOW IVP SCH ×2 (00:29→06:06)
[2022-05-29 05:04] LABS: #Basophils 0.1 thou/uL (0.0-0.2); #Eosinphils 0.6 thou/uL (0.0-0.7); #Lymphocytes 1.2 thou/uL (1.20-3.40); #Monocytes 0.6 thou/uL (0.11-0.59); #Neutrophils 9.5 thou/uL (1.40-6.50); %Basophils 0.4 % (0.0-1.0); %Eosinophils 4.6 % (0.0-10.0); %Lymphocytes 10.3 % (21.0-51.0); %Monocytes 5.2 % (0.0-10.0); %Neutrophils 79.5 % (42.0-75.0); Hemoglobin 6.5 g/dL (12.0-16.0); Mean Corpuscular HGB CONC 31.3 g/dL (32.0-36.0); Mean Corpuscular Hemoglobin 29.9 pg (27.0-31.0); Mean Corpuscular Volume 95.3 fl (78.0-98.0); Mean Platelet Volume 10.8 fL (7.4-10.4); Platelet Count 142 10x3/uL (130-400); RBC Distribution Width 15.2 % (11.5-14.5); Red Blood Cell (RBC) Count 2.19 mill/uL (4.20-5.40)
[2022-05-29 05:23] LABS: Anion Gap 17 mmol/L (10-20); BUN (Urea Nitrogen) 44 mg/dL (9.8-20.1); Calc. Creatinine Clearance 0 mL/min (70-130); Calcium 8.6 mg/dL (7.8-10.44); Carbon Dioxide 21 mmol/L (23-31); Chloride 112 mmol/L (98-107); Estimated GFR 48; Glucose 160 mg/dL (80-115); Phosphorus 3.3 mg/dL (2.3-4.7); Potassium 3.5 mmol/L (3.5-5.1); Sodium 146 mmol/L (136-145)
[2022-05-29] MEDS: Albumin 25% 25 GM/100 ML BOT IVPB SCH (05:23)
[2022-05-29] MEDS: Meropenem 1 GM in Sodium Chloride 0.9% 100 ML IVPB SCH (05:23)
[2022-05-29] MEDS: Cyanocobalamin (Vitamin B-12) 1,000 MCG TAB PO SCH (09:00)
[2022-05-29] MEDS: Potassium Chloride 20 MEQ in Premix Bag 1 BAG IVPB SCH ×2 (09:16→12:12)
[2022-05-29] MEDS: Aspirin Chewable 81 MG TAB PO SCH (09:17)
[2022-05-29] MEDS: Gabapentin 100 MG CAP PO SCH ×3 (09:17→20:00)
[2022-05-29] MEDS: Amlodipine 5 MG TAB PO SCH (09:17)
[2022-05-29] MEDS: hydrALAZINE 25 MG TAB PO SCH ×3 (09:18→20:01)
[2022-05-29] MEDS: Lansoprazole 15 MG/5 ML (BATCHED)UDCUP PER TUBE SCH (09:18)
[2022-05-29] MEDS: Heparin 5,000 UNITS/ML VIAL SC SCH ×2 (09:18→20:00)
[2022-05-29] MEDS: Senokot S 8.6-50 MG TAB PO SCH ×2 (09:19→20:00)
[2022-05-29] MEDS: Polyethylene Glycol 3350 17 GM Packet PO SCH (09:19)
[2022-05-29] MEDS: HumaLOG 300 UNITS/3 ML VIAL SC PRN ×2 (09:20→18:37)
[2022-05-29 12:40] LABS: Vancomycin, Random 29.2 ug/mL (See Comment)
[2022-05-29] MEDS: Acetaminophen 650 MG/20.3 ML UDCUP PER TUBE PRN ×2 (13:03→21:28)
[2022-05-29] MEDS: Meropenem 2 GM, Admixture Fee 1 EACH in Sodium Chloride 0.9% 100 ML IVPB SCH ×2 (15:10→21:28)
[2022-05-29 15:56] LABS: Potassium 4.2 mmol/L (3.5-5.1)
[2022-05-29] MEDS: Atorvastatin Calcium 40 MG TAB PO SCH (20:00)
[2022-05-29] MEDS: guaiFENesin 200 MG TAB PO PRN (20:02)
[2022-05-29] MEDS: Lorazepam 2 MG/ML VIAL SLOW IVP PRN (20:49)
[2022-05-29] MEDS: Morphine 2 MG/ML VIAL SLOW IVP PRN (21:22)
[2022-05-30] MEDS ORDERED: Lactated Ringer's 500 ML IV SCH (03:30)
[2022-05-30] MEDS: GUAIFENESIN SF SOLN 200 MG/10 ML UDCUP PO PRN (04:14)
[2022-05-30 04:35] LABS: #Eosinphils 0.7 thou/uL (0.0-0.7); #Lymphocytes 1.3 thou/uL (1.20-3.40); #Monocytes 0.4 thou/uL (0.11-0.59); #Neutrophils 7.9 thou/uL (1.40-6.50); %Basophils 0.2 % (0.0-1.0); %Eosinophils 6.4 % (0.0-10.0); %Monocytes 3.5 % (0.0-10.0); %Neutrophils 76.9 % (42.0-75.0); Hemoglobin 7.5 g/dL (12.0-16.0); Mean Corpuscular HGB CONC 32.5 g/dL (32.0-36.0); Mean Corpuscular Volume 95.4 fl (78.0-98.0); Mean Platelet Volume 11.3 fL (7.4-10.4); Platelet Count 135 10x3/uL (130-400); RBC Distribution Width 14.7 % (11.5-14.5); Red Blood Cell (RBC) Count 2.42 mill/uL (4.20-5.40); White Blood Cell (WBC) Count 10.3 10x3/uL (4.8-10.8)
[2022-05-30 04:52] LABS: Anion Gap 15 mmol/L (10-20); BUN (Urea Nitrogen) 55 mg/dL (9.8-20.1); Calc. Creatinine Clearance 59 mL/min (70-130); Calcium 8.7 mg/dL (7.8-10.44); Carbon Dioxide 22 mmol/L (23-31); Chloride 112 mmol/L (98-107); Estimated GFR 41; Glucose 159 mg/dL (80-115); Phosphorus 3.3 mg/dL (2.3-4.7); Potassium 3.8 mmol/L (3.5-5.1); Sodium 145 mmol/L (136-145)
[2022-05-30] MEDS: HumaLOG 300 UNITS/3 ML VIAL SC PRN (04:54)
[2022-05-30] MEDS: Meropenem 2 GM, Admixture Fee 1 EACH in Sodium Chloride 0.9% 100 ML IVPB SCH ×3 (05:00→22:28)
[2022-05-30] MEDS: Morphine 2 MG/ML VIAL SLOW IVP PRN ×2 (05:24→11:23)
[2022-05-30 07:57] LABS: Actual Bicarbonate (HCO3a) 23.6 mEq/L (22-28); Base Excess (BEa) -1.5 mEq/L (-2.0 to +3.0); CO2 Tension 41.2 mmHg (35.0-45.0); Calcium, Ionized (arterial) 1.16 mmol/L (1.12-1.30); Carboxyhemoglobin (COHb) 1.3 gm% (0.0-3.0); Potassium - ABG Lab 4.22 mmol/L (3.70-5.30); pH, Arterial 7.38 (7.35-7.45)
[2022-05-30 08:02] LABS: O2 Tension (PaO2), arterial 44.4 mmHg (> 80.0)
[2022-05-30 08:06] LABS: Puncture Site RRA
[2022-05-30] MEDS: Senokot S 8.6-50 MG TAB PO SCH ×3 (10:14→21:20)
[2022-05-30] MEDS: Amlodipine 5 MG TAB PO SCH (10:14)
[2022-05-30] MEDS: Aspirin Chewable 81 MG TAB PO SCH (10:14)
[2022-05-30] MEDS: Gabapentin 100 MG CAP PO SCH ×3 (10:14→20:16)
[2022-05-30] MEDS: Polyethylene Glycol 3350 17 GM Packet PO SCH (10:15)
[2022-05-30] MEDS: Heparin 5,000 UNITS/ML VIAL SC SCH ×2 (10:15→20:16)
[2022-05-30] MEDS: hydrALAZINE 25 MG TAB PO SCH ×3 (10:15→20:17)
[2022-05-30] MEDS: Cyanocobalamin (Vitamin B-12) 1,000 MCG TAB PO SCH (10:15)
[2022-05-30] MEDS: Lansoprazole 15 MG/5 ML (BATCHED)UDCUP PER TUBE SCH (10:15)
[2022-05-30 12:46] LABS: Vancomycin, Random 19.9 ug/mL (See Comment)
[2022-05-30] MEDS ORDERED: Vancomycin Dose by Levels Sliding Scale (Wt 71-99) FS SCH (13:15)
[2022-05-30] MEDS ORDERED: Vancomycin HCl 500 MG in Sodium Chloride 0.9% 100 ML IV SCH (13:30)
[2022-05-30] MEDS ORDERED: Sodium Chloride 0.9% 500 ML IV SCH (14:30)
[2022-05-30] MEDS: Albumin 25% 25 GM/100 ML BOT IVPB SCH ×2 (14:51→20:16)
[2022-05-30] MEDS: Acetaminophen 650 MG/20.3 ML UDCUP PER TUBE PRN (18:39)
[2022-05-30] MEDS: Atorvastatin Calcium 40 MG TAB PO SCH (20:16)
[2022-05-30] MEDS ORDERED: VANCOMYCIN 1.25 GM/250 ML BAG 1.25 GM in Premix Bag 1 BAG IVPB SCH (21:00)
[2022-05-31] MEDS: Albumin 25% 25 GM/100 ML BOT IVPB SCH ×2 (02:20→08:40)
[2022-05-31] MEDS: GUAIFENESIN SF SOLN 200 MG/10 ML UDCUP PO PRN (02:22)
[2022-05-31] MEDS: Morphine 2 MG/ML VIAL SLOW IVP PRN ×5 (03:05→22:20)
[2022-05-31 04:21] LABS: #Eosinphils 0.6 thou/uL (0.0-0.7); #Lymphocytes 1.1 thou/uL (1.20-3.40); #Monocytes 0.3 thou/uL (0.11-0.59); #Neutrophils 6.8 thou/uL (1.40-6.50); %Basophils 0.3 % (0.0-1.0); %Eosinophils 6.7 % (0.0-10.0); %Lymphocytes 12.3 % (21.0-51.0); %Monocytes 3.8 % (0.0-10.0); %Neutrophils 76.9 % (42.0-75.0); Hemoglobin 6.9 g/dL (12.0-16.0); Mean Corpuscular HGB CONC 32.3 g/dL (32.0-36.0); Mean Corpuscular Hemoglobin 30.4 pg (27.0-31.0); Mean Corpuscular Volume 94.3 fl (78.0-98.0); Mean Platelet Volume 11.3 fL (7.4-10.4); Platelet Count 143 10x3/uL (130-400); RBC Distribution Width 14.8 % (11.5-14.5); Red Blood Cell (RBC) Count 2.25 mill/uL (4.20-5.40); White Blood Cell (WBC) Count 8.8 10x3/uL (4.8-10.8)
[2022-05-31 04:46] LABS: ALT (SGPT) 13 U/L (8-55); AST (SGOT) 33 U/L (5-34); Albumin 3.6 g/dL (3.4-4.8); Alkaline Phosphatase 128 U/L (40-110); Anion Gap 18 mmol/L (10-20); BUN (Urea Nitrogen) 58 mg/dL (9.8-20.1); Bilirubin, Total 0.6 mg/dL (0.2-1.2); Calc. Creatinine Clearance 65 mL/min (70-130); Calcium 8.7 mg/dL (7.8-10.44); Carbon Dioxide 18 mmol/L (23-31); Chloride 110 mmol/L (98-107); Estimated GFR 44; Globulin 3.4 g/dL (2.4-3.5); Glucose 150 mg/dL (80-115); Phosphorus 4.1 mg/dL (2.3-4.7); Potassium 3.8 mmol/L (3.5-5.1); Sodium 142 mmol/L (136-145)
[2022-05-31] MEDS: Lorazepam 2 MG/ML VIAL SLOW IVP PRN ×2 (05:30→12:21)
[2022-05-31] MEDS: Meropenem 2 GM, Admixture Fee 1 EACH in Sodium Chloride 0.9% 100 ML IVPB SCH ×3 (05:35→22:16)
[2022-05-31] MEDS: Gabapentin 100 MG CAP PO SCH ×3 (08:40→20:01)
[2022-05-31] MEDS: Heparin 5,000 UNITS/ML VIAL SC SCH ×2 (08:40→20:01)
[2022-05-31] MEDS: Aspirin Chewable 81 MG TAB PO SCH (08:40)
[2022-05-31] MEDS: Polyethylene Glycol 3350 17 GM Packet PO SCH (08:41)
[2022-05-31] MEDS: hydrALAZINE 25 MG TAB PO SCH ×3 (08:41→20:01)
[2022-05-31] MEDS: Senokot S 8.6-50 MG TAB PO SCH ×2 (08:41→20:02)
[2022-05-31] MEDS: Lansoprazole 15 MG/5 ML (BATCHED)UDCUP PER TUBE SCH (08:41)
[2022-05-31] MEDS: Cyanocobalamin (Vitamin B-12) 1,000 MCG TAB PO SCH (09:07)
[2022-05-31 14:01] LABS: Hemoglobin 8.8 g/dL (12.0-16.0)
[2022-05-31 16:12] LABS: Vancomycin, Random 20.3 ug/mL (See Comment)
[2022-05-31] MEDS ORDERED: Vancomycin Dose by Levels Sliding Scale (Wt 71-99) FS SCH (17:00)
[2022-05-31] MEDS ORDERED: Vancomycin HCl 250 MG, Admixture Fee 1 EACH in Sodium Chloride 0.9% 100 ML IV SCH (17:15)
[2022-05-31] MEDS ORDERED: Vancomycin HCl 500 MG in Sodium Chloride 0.9% 100 ML IV SCH (17:15)
[2022-05-31] MEDS: Atorvastatin Calcium 40 MG TAB PO SCH (20:01)
[2022-05-31] MEDS ORDERED: Linezolid 600 MG in Premix Bag 1 BAG IVPB SCH (21:00)
[2022-05-31] MEDS: HumaLOG 300 UNITS/3 ML VIAL SC PRN (22:20)
[2022-06-01] MEDS: HumaLOG 300 UNITS/3 ML VIAL SC PRN ×2 (05:05→22:26)
[2022-06-01 05:09] LABS: #Eosinphils 0.5 thou/uL (0.0-0.7); #Lymphocytes 1.1 thou/uL (1.20-3.40); #Monocytes 0.4 thou/uL (0.11-0.59); #Neutrophils 8.7 thou/uL (1.40-6.50); %Basophils 0.2 % (0.0-1.0); %Eosinophils 5.1 % (0.0-10.0); %Lymphocytes 10.3 % (21.0-51.0); %Monocytes 3.8 % (0.0-10.0); %Neutrophils 80.6 % (42.0-75.0); Hemoglobin 8.9 g/dL (12.0-16.0); Mean Corpuscular HGB CONC 30.8 g/dL (32.0-36.0); Mean Corpuscular Hemoglobin 29.5 pg (27.0-31.0); Mean Platelet Volume 10.9 fL (7.4-10.4); Platelet Count 176 10x3/uL (130-400); RBC Distribution Width 14.8 % (11.5-14.5); White Blood Cell (WBC) Count 10.8 10x3/uL (4.8-10.8)
[2022-06-01 05:36] LABS: Anion Gap 16 mmol/L (10-20); BUN (Urea Nitrogen) 65 mg/dL (9.8-20.1); Calc. Creatinine Clearance 55 mL/min (70-130); Calcium 8.9 mg/dL (7.8-10.44); Carbon Dioxide 22 mmol/L (23-31); Chloride 111 mmol/L (98-107); Estimated GFR 36; Glucose 172 mg/dL (80-115); Phosphorus 5.5 mg/dL (2.3-4.7); Potassium 4.5 mmol/L (3.5-5.1); Sodium 144 mmol/L (136-145)
[2022-06-01] MEDS: Meropenem 2 GM, Admixture Fee 1 EACH in Sodium Chloride 0.9% 100 ML IVPB SCH ×2 (06:18→13:43)
[2022-06-01] MEDS: Cyanocobalamin (Vitamin B-12) 1,000 MCG TAB PO SCH (07:23)
[2022-06-01] MEDS: Gabapentin 100 MG CAP PO SCH ×3 (07:23→20:14)
[2022-06-01] MEDS: Aspirin Chewable 81 MG TAB PO SCH (07:23)
[2022-06-01] MEDS: Lansoprazole 15 MG/5 ML (BATCHED)UDCUP PER TUBE SCH (07:23)
[2022-06-01] MEDS: Lorazepam 2 MG/ML VIAL SLOW IVP PRN ×2 (07:23→11:28)
[2022-06-01] MEDS: Polyethylene Glycol 3350 17 GM Packet PO SCH (07:24)
[2022-06-01] MEDS: Heparin 5,000 UNITS/ML VIAL SC SCH ×2 (07:24→20:15)
[2022-06-01] MEDS: Senokot S 8.6-50 MG TAB PO SCH ×2 (07:24→20:15)
[2022-06-01] MEDS: hydrALAZINE 25 MG TAB PO SCH ×3 (07:24→20:15)
[2022-06-01 14:09] VITALS: BMI 42.8
[2022-06-01] MEDS: Atorvastatin Calcium 40 MG TAB PO SCH (20:15)
[2022-06-02 02:08] VITALS: BP 111/57
[2022-06-02] MEDS: HumaLOG 300 UNITS/3 ML VIAL SC PRN (05:03)
[2022-06-02 08:02] VITALS: TEMP 98
[2022-06-02] MEDS: Aspirin Chewable 81 MG TAB PO SCH (08:08)
[2022-06-02] MEDS: Gabapentin 100 MG CAP PO SCH ×2 (08:08→13:23)
[2022-06-02] MEDS: Cyanocobalamin (Vitamin B-12) 1,000 MCG TAB PO SCH (08:08)
[2022-06-02] MEDS: Polyethylene Glycol 3350 17 GM Packet PO SCH (08:08)
[2022-06-02] MEDS: Lansoprazole 15 MG/5 ML (BATCHED)UDCUP PER TUBE SCH (08:08)
[2022-06-02] MEDS: Heparin 5,000 UNITS/ML VIAL SC SCH (08:08)
[2022-06-02] MEDS: Senokot S 8.6-50 MG TAB PO SCH (08:08)
[2022-06-02] MEDS: hydrALAZINE 25 MG TAB PO SCH ×2 (08:28→13:24)
[2022-06-02 10:17] LABS: Anion Gap 22 mmol/L (10-20); BUN (Urea Nitrogen) 72 mg/dL (9.8-20.1); Calc. Creatinine Clearance 33 mL/min (70-130); Calcium 9.1 mg/dL (7.8-10.44); Carbon Dioxide 16 mmol/L (23-31); Chloride 110 mmol/L (98-107); Estimated GFR 19; Glucose 173 mg/dL (80-115); Phosphorus 7.8 mg/dL (2.3-4.7); Potassium 5.8 mmol/L (3.5-5.1); Sodium 142 mmol/L (136-145)
[2022-06-02 10:55] LABS: #Eosinphils 0.5 thou/uL (0.0-0.7); #Lymphocytes 1.9 thou/uL (1.20-3.40); #Monocytes 0.6 thou/uL (0.11-0.59); #Neutrophils 7.6 thou/uL (1.40-6.50); %Basophils 0.4 % (0.0-1.0); %Eosinophils 4.9 % (0.0-10.0); %Lymphocytes 17.6 % (21.0-51.0); %Monocytes 5.6 % (0.0-10.0); %Neutrophils 71.6 % (42.0-75.0); Hemoglobin 8.1 g/dL (12.0-16.0); Mean Corpuscular HGB CONC 31.2 g/dL (32.0-36.0); Mean Corpuscular Hemoglobin 30.6 pg (27.0-31.0); Mean Corpuscular Volume 98.1 fl (78.0-98.0); Mean Platelet Volume 10.4 fL (7.4-10.4); Platelet Count 210 10x3/uL (130-400); RBC Distribution Width 15.2 % (11.5-14.5); Red Blood Cell (RBC) Count 2.66 mill/uL (4.20-5.40); White Blood Cell (WBC) Count 10.6 10x3/uL (4.8-10.8)
== END 2022-06-02 13:48 | disposition expired | DRG 4 ==
LOC: ERS 15:54 → CCU 19:42 → IMCU/EMU 05-04 19:54 → T4-B 05-12 15:27 → IMCU/EMU 05-16 14:44 → CCU 05-19 21:36
PROVIDERS: ADMIT Family Medicine; ATTEND Internal Medicine
PROC: 3E03329 Introduction of Other Anti-infective into Peripheral Vein, Percutaneous Approach (ICD-10-PCS; principal; 2022-04-19)
PROC: 3E033XZ Introduction of Vasopressor into Peripheral Vein, Percutaneous Approach (ICD-10-PCS; 2022-04-19)
PROC: 5A1955Z Respiratory Ventilation, Greater than 96 Consecutive Hours (ICD-10-PCS; 2022-04-19)
PROC: 0BH17EZ Insertion of Endotracheal Airway into Trachea, Via Natural or Artificial Opening (ICD-10-PCS; 2022-04-19)
PROC: 0D9770Z Drainage of Stomach, Pylorus with Drainage Device, Via Natural or Artificial Opening (ICD-10-PCS; 2022-04-19)
PROC: 30283B1 Transfusion of Nonautologous 4-Factor Prothrombin Complex Concentrate into Vein, Percutaneous Approach (ICD-10-PCS; 2022-05-01)
PROC: 5A09557 Assistance with Respiratory Ventilation, Greater than 96 Consecutive Hours, Continuous Positive Airway Pressure (ICD-10-PCS; 2022-05-03)
PROC: 0BH18EZ Insertion of Endotracheal Airway into Trachea, Via Natural or Artificial Opening Endoscopic (ICD-10-PCS; 2022-05-20)
PROC: 5A1955Z Respiratory Ventilation, Greater than 96 Consecutive Hours (ICD-10-PCS; 2022-05-20)
PROC: 0B113Z4 Bypass Trachea to Cutaneous, Percutaneous Approach (ICD-10-PCS; 2022-05-22)
PROC: 0DH63UZ Insertion of Feeding Device into Stomach, Percutaneous Approach (ICD-10-PCS; 2022-05-22)
DX: A40.0 Sepsis due to streptococcus, group A (principal); G93.41 Metabolic encephalopathy; R65.21 Severe sepsis with septic shock; I21.A1 Myocardial infarction type 2; J18.9 Pneumonia, unspecified organism; I50.43 Acute on chronic combined systolic (congestive) and diastolic (congestive) heart failure; J80 Acute respiratory distress syndrome; N17.9 Acute kidney failure, unspecified; I13.0 Hypertensive heart and chronic kidney disease with heart failure and stage 1 through stage 4 chronic kidney disease, or unspecified chronic kidney disease; L03.115 Cellulitis of right lower limb; E87.20 Acidosis, unspecified; E87.1 Hypo-osmolality and hyponatremia; Z68.41 Body mass index [BMI] 40.0-44.9, adult; E66.2 Morbid (severe) obesity with alveolar hypoventilation; N18.4 Chronic kidney disease, stage 4 (severe); E87.0 Hyperosmolality and hypernatremia; G72.81 Critical illness myopathy; J95.851 Ventilator associated pneumonia; Z66 Do not resuscitate; Z51.5 Encounter for palliative care; E78.00 Pure hypercholesterolemia, unspecified; Z20.822 Contact with and (suspected) exposure to COVID-19; E11.22 Type 2 diabetes mellitus with diabetic chronic kidney disease; R19.7 Diarrhea, unspecified; Z77.22 Contact with and (suspected) exposure to environmental tobacco smoke (acute) (chronic); D63.1 Anemia in chronic kidney disease; E83.42 Hypomagnesemia; E88.09 Other disorders of plasma-protein metabolism, not elsewhere classified; I25.10 Atherosclerotic heart disease of native coronary artery without angina pectoris; E87.5 Hyperkalemia; I25.5 Ischemic cardiomyopathy; I16.0 Hypertensive urgency; R13.12 Dysphagia, oropharyngeal phase; E87.6 Hypokalemia; A41.02 Sepsis due to Methicillin resistant Staphylococcus aureus; Z79.84 Long term (current) use of oral hypoglycemic drugs; Z79.899 Other long term (current) drug therapy; I25.2 Old myocardial infarction; Z88.8 Allergy status to other drugs, medicaments and biological substances
CPT/HCPCS: 31624; 36415; 36416; 36430; 36600; 70450; 71045; 71250; 74018; 74177; 80048; 80053; 80061; 80076; 80202; 81001; 81003; 82040; 82274; 82533; 82553; 82607; 82805; 83036; 83090; 83540; 83550; 83605; 83630; 83690; 83735; 83880; 83921; 84100; 84145; 84443; 84466; 84484; 85025; 85060; 85520; 85610; 85652; 85730; 86140; 86850; 86900; 86901; 87040; 87070; 87077; 87086; 87149; 87186; 87205; 87324; 87328; 87329; 87449; 87505; 87811; 93005; 93010; 93306; 94002; 94003; 94660; 94760; 96365; 96366; 96367; 96375; 97139; A4217; C9113; J0360; J0692; J0696; J1100; J1644; J1650; J1720; J1815; J1940; J2060; J2185; J2250; J2270; J2272; J2405; J2540; J2543; J2704; J2920; J3010; J3370; J3370-JW; J3475; J3480; J3490; J7030; J7042; J7050; J7070; J7120; P9016; P9047